=== PATIENT | male | born 1965 | race Caucasian/White ===

== ENCOUNTER 2018-06-11 21:03 | Inpatient (IN) | payer OTHER ==
[~2018-06-11] VITALS: Ht 172.7 cm; Wt 120.7 kg
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
[2018-06-11 22:43] LABS: BASO # 0.1 x10^3/uL (0.0-0.2); BASO % 1 % (0-3); EOS # 0.1 x10^3/uL (0.0-0.7); EOS % 1 % (0-3); HEMATOCRIT 38.3 % (39.0-53.0); HEMOGLOBIN 12.7 g/dL (13.0-17.5); LYMPH # 0.9 x10^3/uL (1.0-4.8); LYMPH % 11 % (24-48); MEAN CORPUSCULAR HEMOGLOBIN 29 pg (25-35); MEAN CORPUSCULAR HGB CONC 33 g/dL (31-37); MEAN CORPUSCULAR VOLUME 86 fL (79-100); MONO # 0.5 x10^3/uL (0.0-1.1); MONO % 6 % (0-9); NEUT # 6.5 x10^3uL (1.8-7.7); NEUT % 81 % (31-73); PLATELET COUNT 208 x10^3/uL (140-400); RED BLOOD COUNT 4.43 x10^6/uL (4.30-5.70); RED CELL DISTRIBUTION WIDTH 16.2 % (11.5-14.5)
[2018-06-11] MEDS ORDERED: IV NORMAL SALINE 1000ML BAG 1,000 ML IV ONE (22:45)
[2018-06-11] MEDS ORDERED: ONDANSETRON PF 4 MG/2 ML VIAL. IV ONE (22:45)
[2018-06-11] MEDS ORDERED: fentaNYL PF VIAL 100 MCG/2 ML VIAL IV ONE (22:45)
[2018-06-11 22:52] LABS: PROTHROMBIN TIME PATIENT 13.9 SEC (11.7-14.0)
[2018-06-11 22:57] LABS: CALCIUM 9.4 mg/dL (8.5-10.1); GFR 78.5; POTASSIUM 3.9 mmol/L (3.5-5.1)
[2018-06-11 23:08] LABS: ALBUMIN/GLOBULIN RATIO 1.2 (1.0-1.7); TOTAL BILIRUBIN 0.5 mg/dL (0.2-1.0); TOTAL PROTEIN 7.4 g/dL (6.4-8.2)
[2018-06-11] MEDS ORDERED: CONTRAST GIVEN. MC PRN (23:15)
[2018-06-11] MEDS ORDERED: IOHEXOL 300 MG/ML 100ML VIAL. IV ONE (23:15)
--- NOTE | 2018-06-11 23:33 | RAD ---
CT Head W/O Contrast: History: SYNCOPE Comparison: none Axial images were obtained without contrast. There is opacification of the left maxillary sinus. The quiñones and white matter appears normal and symmetrical for the patients age. There is no mass effect, extraaxial fluid collections or hydrocephalus. There is no gross bleed. There is no focal loss of quiñones-white matter distinction to suggest acute ischemia, i.e. stroke. Impression: Opacification of the left maxillary sinus. No acute intracranial findings. PQRS Compliance Statement: One or more of the following individualized dose reduction techniques were utilized for this examination: 1. Automated exposure control 2. Adjustment of the mA and/or kV according to patient size 3. Use of iterative reconstruction technique Electronically signed by: Chris Dudley III, MD (06/11/2018 11:30 PM) [facility]
[2018-06-12 01:10] LABS: BILIRUBIN,URINE NEGATIVE (NEG); CLARITY,URINE CLEAR; COLOR,URINE YELLOW; NITRITE,URINE NEGATIVE (NEG); PROTEIN,URINE NEGATIVE (NEG-TRACE); UROBILINOGEN,URINE 0.2 mg/dL (0.2 mg/dL)
[2018-06-12 01:15] LABS: BARBITURATES NEG (NEG); BENZODIAZEPINES NEG (NEG); CANNABINOIDS NEG (NEG); COCAINE NEG (NEG); METHADONE NEG (NEG); OPIATES NEG (NEG); PHENCYCLIDINE NEG (NEG)
[2018-06-12 01:16] LABS: AMPHETAMINE/METHAMPHETAMINE NEG (NEG)
[2018-06-12 01:22] LABS: BACTERIA,URINE 0 /HPF (0-FEW); RBC,URINE TNTC /HPF (0-2); WBC,URINE OCC /HPF (0-4)
--- NOTE | 2018-06-12 01:57 | RAD ---
INDICATION: abd pain; Omni 300, 75ml COMPARISON: None. TECHNIQUE: Axial CT images obtained through the abdomen and pelvis with contrast. This examination was time stamped as sent to the system at approximately 1:13 AM on 06/12/2018 and was available for review within the next few minutes after that point. The emergency department was called with preliminary report at 1:38 AM. One or more of the following individualized dose reduction techniques were utilized for this examination: 1. Automated exposure control; 2. Adjustment of the mA and/or kV according to patient size; 3. Use of iterative reconstruction technique. FINDINGS: Coronary artery calcific atherosclerosis. Abdominal aorta is not aneurysmal. There is calcific atherosclerosis. There are some enlarged lymph nodes in the groin bilaterally. Measure up to 11 mm short axis. Intraperitoneal free air is identified. Small amount of free fluid. No intrahepatic bile duct dilation. No peripancreatic fluid collection. Spleen is unremarkable. Low-density left adrenal nodule, 18 mm. Suspected exophytic lesion left kidney measuring 25 mm. No left-sided hydronephrosis. Bilateral nonobstructive renal stones. Urinary bladder is partially distended. No right-sided hydronephrosis. Wall thickening of the sigmoid colon. There is some free fluid adjacent as well as pocket of air and debris. Free air seen adjacent to this site. Appendix measures up to 9-10 mm. Degenerative changes the spine. Multilevel central canal and neural foraminal stenosis. Sclerotic foci in the osseous structures. Most commonly from bone island unless the patient has known history of neoplasm. IMPRESSION: 1. Wall thickening of the sigmoid colon with adjacent edema as well as air and debris. There is also free air seen elsewhere in the abdomen. This is most concerning for a perforated diverticulitis. 2. The appendix is dilated up to about a centimeter but the edema is more centered around the sigmoid colon rather than the appendix. This could be the patient's baseline appearance and some patients can have a dilated appendix at baseline however superimposed appendiceal inflammation would be difficult to exclude given the dilation. Electronically signed by: Brendan Michel MD (06/12/2018 1:54 AM) [facility]
[2018-06-12] MEDS ORDERED: ONDANSETRON PF 4 MG/2 ML VIAL. IV PRN (02:00)
[2018-06-12] MEDS: HYDROmorphone 2 MG/ML VIAL IV PRN ×5 (02:26→21:43)
[2018-06-12] MEDS: PIPERACILLIN/TAZOBACTAM 4.5 GM in IV NORMAL SALINE 100ML 100 ML IV SCH ×4 (02:30→21:43)
[2018-06-12] MEDS ORDERED: PIP/TAZO PER PHARMACY MC PRN (02:30)
[2018-06-12 03:25] VITALS: BP 121/78
[2018-06-12] MEDS ORDERED: bariatric vitamins (03:26)
[2018-06-12] MEDS ORDERED: CALC-112 PO (03:26)
[2018-06-12] MEDS ORDERED: PANT20TA2 PO (03:26)
[2018-06-12] MEDS ORDERED: losartan (03:26)
[2018-06-12] MEDS ORDERED: CARV25TA PO (03:26)
[2018-06-12] MEDS ORDERED: LACT100C2 PO (03:26)
[2018-06-12] MEDS ORDERED: TAMS0.4C97 PO (03:26)
[2018-06-12] MEDS ORDERED: FENO145T30 PO (03:26)
[2018-06-12] MEDS: IV NORMAL SALINE 1000ML BAG 1,000 ML IV SCH ×2 (04:27→17:13)
--- NOTE | 2018-06-12 06:38 | EKG ---
[facility] [address] [place] [address] Test Date: 2018-06-11 Test Time: 22:51:46 Pat Name: TUTU BERGMAN Department: Room: [facility] Gender: M Office Mover: : 1965 Requested By: CLINTON POZO Order Number: [id number] Reading MD: Abhinav Whitmore Measurements Intervals Williamson Rate: 78 P: 19 NV: 230 QRS: -9 QRSD: 104 T: 17 QT: 398 QTc: 457 Interpretive Statements SINUS RHYTHM PROLONGED NV INTERVAL LEFTWARD AXIS R-S TRANSITION ZONE IN V LEADS DISPLACED TO THE LEFT QRS(T) CONTOUR ABNORMALITY CONSIDER INFERIOR INFARCT Electronically Signed On 06-18-2018 11:25:22 CDT by Abhinav Whitmore
[2018-06-12 07:00] VITALS: BP 114/73
--- NOTE | 2018-06-12 07:46 | RAD ---
Examination: PORTABLE CHEST 1V History: AMS. SYNCOPE Comparison/Correlation: None Findings: Portable upright frontal view chest was obtained. Heart size is within upper limits of normal. Borderline pulmonary vasculature. No pneumothorax. No definite pleural effusion. No focal infiltrate. No acute bony process. Impression: Borderline pulmonary vasculature. No definite acute process. Electronically signed by: Pete Reese MD (06/12/2018 7:44 AM) [facility]
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
[2018-06-12] MEDS ORDERED: SALIVA STIMULANT AGENT 44ML SPRAY BOTTLE. PO PRN (09:45)
[2018-06-12] MEDS ORDERED: fentaNYL PF VIAL 100 MCG/2 ML VIAL IV PRN (09:45)
[2018-06-12] MEDS ORDERED: KETOROLAC 15 MG/ML VIAL. IV ONE (09:45)
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
[2018-06-12] MEDS ORDERED: DEXTROSE 50% 25 GM / 50ML DISP.SYRIN. IV PRN (10:00)
[2018-06-12] MEDS: TAMSULOSIN 0.4 MG CAP.ER.24H. PO SCH (10:00)
--- NOTE | 2018-06-12 10:41 | PDOC ---
Infectious Disease Note Vital Sign Vital Signs Vital Signs Date Time Temp Pulse Resp B/P (MAP) Pulse Ox O2 Delivery O2 Flow Rate FiO2 06/12/18 08:31 95 06/12/18 07:04 16 Room Air 06/12/18 07:00 99.5 82 114/73 (87) 99.5 Labs Lab Laboratory Tests Test 06/11/18 22:15 06/12/18 00:50 White Blood Count 8.0 x10^3/uL (4.0-11.0) Red Blood Count 4.43 x10^6/uL (4.30-5.70) Hemoglobin 12.7 g/dL (13.0-17.5) Hematocrit 38.3 % (39.0-53.0) Mean Corpuscular Volume 86 fL (79-100) Mean Corpuscular Hemoglobin 29 pg (25-35) Mean Corpuscular Hemoglobin Concent 33 g/dL (31-37) Red Cell Distribution Width 16.2 % (11.5-14.5) Platelet Count 208 x10^3/uL (140-400) Neutrophils (%) (Auto) 81 % (31-73) Lymphocytes (%) (Auto) 11 % (24-48) Monocytes (%) (Auto) 6 % (0-9) Eosinophils (%) (Auto) 1 % (0-3) Basophils (%) (Auto) 1 % (0-3) Neutrophils # (Auto) 6.5 x10^3uL (1.8-7.7) Lymphocytes # (Auto) 0.9 x10^3/uL (1.0-4.8) Monocytes # (Auto) 0.5 x10^3/uL (0.0-1.1) Eosinophils # (Auto) 0.1 x10^3/uL (0.0-0.7) Basophils # (Auto) 0.1 x10^3/uL (0.0-0.2) Prothrombin Time 13.9 SEC (11.7-14.0) Prothromb Time International Ratio 1.1 (0.8-1.1) Sodium Level 142 mmol/L (136-145) Potassium Level 3.9 mmol/L (3.5-5.1) Chloride Level 106 mmol/L (98-107) Carbon Dioxide Level 25 mmol/L (21-32) Anion Gap 11 (6-14) Blood Urea Nitrogen 22 mg/dL (8-26) Creatinine 1.0 mg/dL (0.7-1.3) Estimated GFR (Cockcroft-Gault) 78.5 BUN/Creatinine Ratio 22 (6-20) Glucose Level 172 mg/dL (70-99) Calcium Level 9.4 mg/dL (8.5-10.1) Total Bilirubin 0.5 mg/dL (0.2-1.0) Aspartate Amino Transf (AST/SGOT) 17 U/L (15-37) Alanine Aminotransferase (ALT/SGPT) 24 U/L (16-63) Alkaline Phosphatase 41 U/L (46-116) Troponin I Quantitative < 0.017 ng/mL (0.000-0.055) Total Protein 7.4 g/dL (6.4-8.2) Albumin 4.0 g/dL (3.4-5.0) Albumin/Globulin Ratio 1.2 (1.0-1.7) Ethyl Alcohol Level < 10 mg/dL (0-10) Urine Collection Type Void Urine Color Yellow Urine Clarity Clear Urine pH 6.0 Urine Specific [place] >=1.030 Urine Protein Negative mg/dL (NEG-TRACE) Urine Glucose (UA) >=1000 mg/dL (NEG) Urine Ketones (Stick) Trace mg/dL (NEG) Urine Blood Large (NEG) Urine Nitrite Negative (NEG) Urine Bilirubin Negative (NEG) Urine Urobilinogen Dipstick 0.2 mg/dL (0.2 mg/dL) Urine Leukocyte Esterase Negative (NEG) Urine RBC Tntc /HPF (0-2) Urine WBC Occ /HPF (0-4) Urine Squamous Epithelial Cells None /LPF Urine Bacteria 0 /HPF (0-FEW) Urine Opiates Screen Neg (NEG) Urine Methadone Screen Neg (NEG) Urine Barbiturates Neg (NEG) Urine Phencyclidine Screen Neg (NEG) Urine Amphetamine/Methamphetamine Neg (NEG) Urine Benzodiazepines Screen Neg (NEG) Urine Cocaine Screen Neg (NEG) Urine Cannabinoids Screen Neg (NEG) Urine Ethyl Alcohol Neg (NEG) Micro IMPRESSION: 1. Wall thickening of the sigmoid colon with adjacent edema as well as air and debris. There is also free air seen elsewhere in the abdomen. This is most concerning for a perforated diverticulitis. 2. The appendix is dilated up to about a centimeter but the edema is more centered around the sigmoid colon rather than the appendix. This could be the patient's baseline appearance and some patients can have a dilated appendix at baseline however superimposed appendiceal inflammation would be difficult to exclude given the dilation. Objective Assessment Perforated Diverticulitis H/o Staph infection recent doxycycline in [place] around his Gastric bypass ? left max sinusitis on CT Sulfa allergy DM Plan Plan of Care Cont Zosyn Add Vanc and Micafungin F/u labs and cults Await surgical decisions D/w family Thank you # [id number] MARIETTA GONZALEZ MD Jun 12, 2018 10:41
[2018-06-12 11:00] VITALS: BP 107/65
[2018-06-12] MEDS: INSULIN LISPRO 300 UNITS/3 ML INSULN.PEN. SQ SCH ×2 (11:13→17:00)
[2018-06-12] MEDS: PANTOPRAZOLE IV PUSH 40 MG VIAL. IVP SCH (11:16)
[2018-06-12] MEDS ORDERED: VANCOMYCIN 2 GM in IV NORMAL SALINE 500ML BAG 500 ML IV ONE (11:30)
[2018-06-12] MEDS: MICAFUNGIN 100 MG in IV DEXTROSE 5% 100ML 100 ML IV SCH (12:52)
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
[2018-06-12 15:00] VITALS: BP 122/75
[2018-06-12] MEDS: VANCOMYCIN PER PHARMACY MC PRN (15:16)
--- NOTE | 2018-06-12 15:48 | CARD ---
MR#: [id number] Date of Study: 06/12/2018 Ordering Physician: GLENROY INFANTE, Referring Physician: RONEL OLIVAREZ Tech: Vero Castillo [facility] APPROVED REPORT EXAM: Two-dimensional and M-mode echocardiogram with Doppler and color Doppler. Other Information Quality : Fair INDICATION Syncope 2D DIMENSIONS RVDd3.5 (2.9-3.5cm)Left Atrium(2D)4.2 (1.6-4.0cm) IVSd1.2 (0.7-1.1cm)Aortic Root(2D)3.5 (2.0-3.7cm) LVDd5.7 (3.9-5.9cm)LVOT Diameter2.6 (1.8-2.4cm) PWd1.1 (0.7-1.1cm)LVDs3.3 (2.5-4.0cm) FS (%) 30.0 %SV115.5 ml LVEF(%)60.0 (>50%) Aortic Valve AoV Peak Jordan.150.9cm/sAoV VTI27.6cm AO Peak GR.9.1mmHgLVOT Peak Jordan.133.5cm/s LVOT VTI 26.52cmAO Mean GR.5mmHg YAN (VMAX)4.84ji7BXQ (VTI)4.95cm2 Mitral Valve MV E Vfjktwmk266.0cm/sMV DECEL DIYE683mh MV A Mornelko39.8cm/sMV RVV75kt E/A Ratio1.3MVA (PHT)3.45cm2 TDI E/Lateral E'11.7E/Medial E'15.1 Tricuspid Valve TR P. Aiipuhjc310zv/sRAP OVCDDYPS4bgBz TR Peak Gr.51wlQvEEYL83ieMu Pulmonary Vein S1 Uxijcawp77.5cm/sD2 Kkwyokeu36.1cm/s LEFT VENTRICLE The left ventricle is normal size. There is mild concentric left ventricular hypertrophy. The left ve ntricular systolic function is normal and the ejection fraction is within normal range. The Ejection Fraction is 55-60%. There is normal LV segmental wall motion. Transmitral Doppler flow pattern is Gra de II-pseudonormal filling dynamics. RIGHT VENTRICLE The right ventricle is normal size. The right ventricular systolic function is normal. ATRIA The left atrium is mildly dilated. The right atrium size is normal. The interatrial septum is intact with no evidence for an atrial septal defect or patent foramen ovale as noted on 2-D or Doppler imagi ng. AORTIC VALVE The aortic valve is normal in structure and function. Doppler and Color Flow revealed no significant aortic regurgitation. There is no significant aortic valvular stenosis. MITRAL VALVE The mitral valve is normal in structure and function. There is no evidence of mitral valve prolapse. There is no mitral valve stenosis. Doppler and Color-flow revealed trace mitral regurgitation. TRICUSPID VALVE The tricuspid valve is normal in structure and function. Doppler and Color Flow revealed trace to mil d tricuspid regurgitation. The PA pressure was estimated at 22 mmHg. There is no tricuspid valve sten osis. PULMONIC VALVE The pulmonic valve is not well visualized. Doppler and Color Flow revealed trace pulmonic valvular re gurgitation. There is no pulmonic valvular stenosis. GREAT VESSELS The aortic root is normal in size. The ascending aorta is moderately dilated at 4.0 cm. The IVC is no rmal in size and collapses >50% with inspiration. PERICARDIAL EFFUSION There is no evidence of significant pericardial effusion. Critical Notification Critical Value: No <Conclusion> The left ventricular systolic function is normal and the ejection fraction is within normal range. Th e Ejection Fraction is 55-60%. There is normal LV segmental wall motion. The ascending aorta is moderately dilated at 4.0 cm. Signed by : Tho Dunne, Electronically Approved : 06/12/2018 15:48:04
[2018-06-12 19:56] VITALS: BP 137/85
[2018-06-12] MEDS: METOPROLOL TARTRATE 5 MG/5 ML VIAL. IVP SCH (21:44)
--- NOTE | 2018-06-12 23:18 | CONS ---
DATE OF CONSULTATION: 06/12/2018 ROOM: 660. REQUESTING PHYSICIAN: Dr. Luz. REASON FOR CONSULTATION: Perforated diverticulitis. 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 Yesterday, he awakened and throughout the day he did not quite feel quite right, but was unable to quantify that. While driving approximately 8:30 last p.m., he had acute onset of abdominal pain and called his to come and get him. He went to go park his truck, but then passed out. He denies any fevers or chills or sweats. He had nausea and vomiting. He had some loose stools. When he was brought to [facility], he was running a low grade temp of 99.5. White blood cell count was normal at 8 with glucose of 172. CT scan of the head showed opacification of the left maxillary sinus. Chest x-ray showed some borderline pulmonary vasculature, but no definitive acute process. Abdomen CT scan showed a wall thickening in the sigmoid colon with adjacent edema as well air and debris, also free air seen elsewhere in the abdomen concerning for perforated diverticulitis. The appendix was dilated up to about a cm as well. He has been admitted to the hospital and has been placed on Zosyn. Denies any rashes. No dysuria, was placed on Flomax. Does have a history of use of Flomax. PAST MEDICAL HISTORY: Positive for diabetes, hypertension, low testosterone, Denise's palsy, sleep apnea, coronary artery disease, BPH, history of left knee infection back in the 1980s and also history of a scrotal skin infection. PAST SURGICAL HISTORY: Positive for tonsillectomy, adenoidectomy and uvulectomy for sleep apnea. History of cholecystectomy. He has got cardiac stents. He has had an I and D of his scrotal area and also has had right knee surgery x 12, left knee surgery x 2, left foot and bilateral wrist surgeries. REVIEW OF SYSTEMS: Otherwise negative except as mentioned above. ALLERGIES: LISTED SULFA, WHICH CAUSES SOME THROAT SWELLING AND HIVES. TYLENOL, HYDROCODONE ARE ALSO LISTED. SOCIAL HISTORY: He is a former smoker, has cats, dogs, and rabbits at home. 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 He is . No alcohol. FAMILY HISTORY: Positive for coronary artery disease, which is dad from. Mom had breast cancer as well as hypertension and diabetes. CURRENT MEDICATIONS: Include Zosyn, fentanyl, Dilaudid, insulin. He did receive Toradol x 1. He is on Lopressor, pantoprazole. Other meds are available, have been reviewed in the chart. PHYSICAL EXAMINATION: VITAL SIGNS: T-max have been 99.5 that is recent. Pulse 82, respirations 18, blood pressure 114/73, satting 95% on room air. CONSTITUTIONAL: He is lying comfortably in bed. He has no acute distress. HEENT: Pupils are equal and reactive. He has normal conjunctivae. Oral cavity, pharynx clear. NECK: Supple, no JVD. LUNGS: Decreased in the bases. HEART: S1, S2. ABDOMEN: Obese, soft, is diffusely tender. EXTREMITIES: Without clubbing or cyanosis. No gross edema. SKIN: Warm to touch without signs of rash. NEUROLOGIC: He is nonfocal and appropriate. PSYCHIATRIC: Affect is pleasant. LABORATORY DATA: White count was 8, hemoglobin 12.7, platelets of 208, neutrophils 81, lymphs are 11, glucose of 122. He has had normal troponin. AST 17, ALT 24, alkaline phosphatase 41, creatinine of 1. Urine had too numerous to count rbc's, occasional wbc's, no bacteria, nitrite and leukocyte esterase were negative. Toxicology screen was negative. Alcohol screen was negative. Radiology reviewed in history of present illness. IMPRESSION: 1. Perforated diverticulitis. 2. History of staph infection, recent doxycycline in March around his gastric bypass that was performed at [facility]. 3. Questionable left sinusitis, CT. 4. SULFA ALLERGY. 5. Diabetes. RECOMMENDATIONS: For now, we will continue the Zosyn. We will add vancomycin as well as micafungin. Add vancomycin given his history of Staph. He is uncertain if it was MRSA or not. We will follow up labs and cultures, await surgical decision. This was discussed with his family. Thank you for allowing me to participate in this patient's care. Should you have any questions, please do not hesitate to contact me. MARIETTA GONZALEZ MD DR: LEE/farhan JOB#: [id number] / [id number]
[2018-06-12 23:22] VITALS: BP 106/61
[2018-06-13] MEDS: IV NORMAL SALINE 1000ML BAG 1,000 ML IV SCH (01:01)
[2018-06-13] MEDS: PIPERACILLIN/TAZOBACTAM 4.5 GM in IV NORMAL SALINE 100ML 100 ML IV SCH ×5 (01:02→23:52)
[2018-06-13] MEDS: VANCOMYCIN 1.75 GM in IV NORMAL SALINE 500ML BAG 500 ML IV SCH ×2 (03:00→16:43)
[2018-06-13 03:10] VITALS: BP 133/77
[2018-06-13 04:20] LABS: BASO % 0 % (0-3); EOS # 0.1 x10^3/uL (0.0-0.7); EOS % 1 % (0-3); HEMATOCRIT 33.4 % (39.0-53.0); HEMOGLOBIN 11.3 g/dL (13.0-17.5); LYMPH % 11 % (24-48); MEAN CORPUSCULAR HEMOGLOBIN 29 pg (25-35); MEAN CORPUSCULAR HGB CONC 34 g/dL (31-37); MEAN CORPUSCULAR VOLUME 87 fL (79-100); MONO # 0.7 x10^3/uL (0.0-1.1); MONO % 8 % (0-9); NEUT # 7.1 x10^3uL (1.8-7.7); NEUT % 79 % (31-73); PLATELET COUNT 178 x10^3/uL (140-400); RED BLOOD COUNT 3.84 x10^6/uL (4.30-5.70); RED CELL DISTRIBUTION WIDTH 16.5 % (11.5-14.5)
[2018-06-13 04:58] LABS: ALBUMIN 3.1 g/dL (3.4-5.0); ALBUMIN/GLOBULIN RATIO 0.9 (1.0-1.7); CALCIUM 8.7 mg/dL (8.5-10.1); CREATININE 1.2 mg/dL (0.7-1.3); GFR 63.6; POTASSIUM 4.1 mmol/L (3.5-5.1); TOTAL BILIRUBIN 0.9 mg/dL (0.2-1.0); TOTAL PROTEIN 6.6 g/dL (6.4-8.2)
[2018-06-13 07:00] VITALS: BP 136/78
[2018-06-13] MEDS: INSULIN LISPRO 300 UNITS/3 ML INSULN.PEN. SQ SCH ×3 (08:00→16:46)
--- NOTE | 2018-06-13 08:12 | PDOC ---
Infectious Disease Note Subjective Subjective Still abd pain but is trying to avoid pain meds to stay clear Feels he needs to have a BM but can't. Occ Flatus No Fever but feels warm. No SOA/rash/dysuria ROS ROS o/w neg Vital Sign Vital Signs Vital Signs Date Time Temp Pulse Resp B/P (MAP) Pulse Ox O2 Delivery O2 Flow Rate FiO2 06/13/18 07:00 98.6 78 16 136/78 (97) 95 Room Air 98.6 Physical Exam PHYSICAL EXAM CONSTITUTIONAL: He is lying comfortably in bed. He has no acute distress. HEENT: Pupils are equal and reactive. He has normal conjunctivae. Oral cavity, pharynx clear. NECK: Supple, no JVD. LUNGS: Decreased in the bases. HEART: S1, S2. ABDOMEN: Obese, soft, is diffusely tender. EXTREMITIES: Without clubbing or cyanosis. No gross edema. SKIN: Warm to touch without signs of rash. NEUROLOGIC: He is nonfocal and appropriate. PSYCHIATRIC: Affect is pleasant. Labs Lab Laboratory Tests Test 06/12/18 11:12 06/12/18 16:42 06/12/18 20:45 06/13/18 03:50 Glucose (Fingerstick) 167 mg/dL (70-99) 164 mg/dL (70-99) 151 mg/dL (70-99) White Blood Count 9.0 x10^3/uL (4.0-11.0) Red Blood Count 3.84 x10^6/uL (4.30-5.70) Hemoglobin 11.3 g/dL (13.0-17.5) Hematocrit 33.4 % (39.0-53.0) Mean Corpuscular Volume 87 fL (79-100) Mean Corpuscular Hemoglobin 29 pg (25-35) Mean Corpuscular Hemoglobin Concent 34 g/dL (31-37) Red Cell Distribution Width 16.5 % (11.5-14.5) Platelet Count 178 x10^3/uL (140-400) Neutrophils (%) (Auto) 79 % (31-73) Lymphocytes (%) (Auto) 11 % (24-48) Monocytes (%) (Auto) 8 % (0-9) Eosinophils (%) (Auto) 1 % (0-3) Basophils (%) (Auto) 0 % (0-3) Neutrophils # (Auto) 7.1 x10^3uL (1.8-7.7) Lymphocytes # (Auto) 1.0 x10^3/uL (1.0-4.8) Monocytes # (Auto) 0.7 x10^3/uL (0.0-1.1) Eosinophils # (Auto) 0.1 x10^3/uL (0.0-0.7) Basophils # (Auto) 0.0 x10^3/uL (0.0-0.2) Sodium Level 143 mmol/L (136-145) Potassium Level 4.1 mmol/L (3.5-5.1) Chloride Level 109 mmol/L (98-107) Carbon Dioxide Level 26 mmol/L (21-32) Anion Gap 8 (6-14) Blood Urea Nitrogen 18 mg/dL (8-26) Creatinine 1.2 mg/dL (0.7-1.3) Estimated GFR (Cockcroft-Gault) 63.6 BUN/Creatinine Ratio 15 (6-20) Glucose Level 158 mg/dL (70-99) Calcium Level 8.7 mg/dL (8.5-10.1) Total Bilirubin 0.9 mg/dL (0.2-1.0) Aspartate Amino Transf (AST/SGOT) 13 U/L (15-37) Alanine Aminotransferase (ALT/SGPT) 18 U/L (16-63) Alkaline Phosphatase 37 U/L (46-116) Total Protein 6.6 g/dL (6.4-8.2) Albumin 3.1 g/dL (3.4-5.0) Albumin/Globulin Ratio 0.9 (1.0-1.7) Test 06/13/18 07:16 Glucose (Fingerstick) 139 mg/dL (70-99) Micro IMPRESSION: 1. Wall thickening of the sigmoid colon with adjacent edema as well as air and debris. There is also free air seen elsewhere in the abdomen. This is most concerning for a perforated diverticulitis. 2. The appendix is dilated up to about a centimeter but the edema is more centered around the sigmoid colon rather than the appendix. This could be the patient's baseline appearance and some patients can have a dilated appendix at baseline however superimposed appendiceal inflammation would be difficult to exclude given the dilation. Objective Assessment Perforated Diverticulitis H/o Staph infection recent doxycycline in Mar around his Gastric bypass ? left max sinusitis on CT Sulfa allergy DM Plan Plan of Care Cont Zosyn/ Vanc and Micafungin F/u labs and cults Await further surgical decisions D/w MARIETTA GONZALEZ MD Jun 13, 2018 08:12
--- NOTE | 2018-06-13 08:17 | PDOC ---
JULIET NAVARRO NEEDLE PUNCH MACHINE OPERATOR HELPER 06/13/18 0817: SURGICAL PROGRESS NOTE Subjective ongoing pain, although rating at a 6--was a 9 yesterday concerned about dark urine no emesis pain located right side Vital Signs Vital Signs Date Time Temp Pulse Resp B/P (MAP) Pulse Ox O2 Delivery O2 Flow Rate FiO2 06/13/18 07:00 98.6 78 16 136/78 (97) 95 Room Air 98.6 I&O Intake and Output 06/13/18 07:00 Intake Total 0 ml Output Total 400 ml Balance -400 ml Intake Oral 0 ml Output Urine Total 400 ml # Voids 1 General: Alert, Oriented X3, Cooperative, No acute distress Abdomen: Soft, Other (moderate ttp to RLQ, some guarding on exam ) Labs Laboratory Tests Test 06/11/18 22:15 06/12/18 00:50 06/12/18 11:12 06/12/18 16:42 White Blood Count 8.0 x10^3/uL (4.0-11.0) Red Blood Count 4.43 x10^6/uL (4.30-5.70) Hemoglobin 12.7 g/dL (13.0-17.5) Hematocrit 38.3 % (39.0-53.0) Mean Corpuscular Volume 86 fL (79-100) Mean Corpuscular Hemoglobin 29 pg (25-35) Mean Corpuscular Hemoglobin Concent 33 g/dL (31-37) Red Cell Distribution Width 16.2 % (11.5-14.5) Platelet Count 208 x10^3/uL (140-400) Neutrophils (%) (Auto) 81 % (31-73) Lymphocytes (%) (Auto) 11 % (24-48) Monocytes (%) (Auto) 6 % (0-9) Eosinophils (%) (Auto) 1 % (0-3) Basophils (%) (Auto) 1 % (0-3) Neutrophils # (Auto) 6.5 x10^3uL (1.8-7.7) Lymphocytes # (Auto) 0.9 x10^3/uL (1.0-4.8) Monocytes # (Auto) 0.5 x10^3/uL (0.0-1.1) Eosinophils # (Auto) 0.1 x10^3/uL (0.0-0.7) Basophils # (Auto) 0.1 x10^3/uL (0.0-0.2) Prothrombin Time 13.9 SEC (11.7-14.0) Prothromb Time International Ratio 1.1 (0.8-1.1) Sodium Level 142 mmol/L (136-145) Potassium Level 3.9 mmol/L (3.5-5.1) Chloride Level 106 mmol/L (98-107) Carbon Dioxide Level 25 mmol/L (21-32) Anion Gap 11 (6-14) Blood Urea Nitrogen 22 mg/dL (8-26) Creatinine 1.0 mg/dL (0.7-1.3) Estimated GFR (Cockcroft-Gault) 78.5 BUN/Creatinine Ratio 22 (6-20) Glucose Level 172 mg/dL (70-99) Calcium Level 9.4 mg/dL (8.5-10.1) Total Bilirubin 0.5 mg/dL (0.2-1.0) Aspartate Amino Transf (AST/SGOT) 17 U/L (15-37) Alanine Aminotransferase (ALT/SGPT) 24 U/L (16-63) Alkaline Phosphatase 41 U/L (46-116) Troponin I Quantitative < 0.017 ng/mL (0.000-0.055) Total Protein 7.4 g/dL (6.4-8.2) Albumin 4.0 g/dL (3.4-5.0) Albumin/Globulin Ratio 1.2 (1.0-1.7) Ethyl Alcohol Level < 10 mg/dL (0-10) Urine Collection Type Void Urine Color Yellow Urine Clarity Clear Urine pH 6.0 Urine Specific [place] >=1.030 Urine Protein Negative mg/dL (NEG-TRACE) Urine Glucose (UA) >=1000 mg/dL (NEG) Urine Ketones (Stick) Trace mg/dL (NEG) Urine Blood Large (NEG) Urine Nitrite Negative (NEG) Urine Bilirubin Negative (NEG) Urine Urobilinogen Dipstick 0.2 mg/dL (0.2 mg/dL) Urine Leukocyte Esterase Negative (NEG) Urine RBC Tntc /HPF (0-2) Urine WBC Occ /HPF (0-4) Urine Squamous Epithelial Cells None /LPF Urine Bacteria 0 /HPF (0-FEW) Urine Opiates Screen Neg (NEG) Urine Methadone Screen Neg (NEG) Urine Barbiturates Neg (NEG) Urine Phencyclidine Screen Neg (NEG) Urine Amphetamine/Methamphetamine Neg (NEG) Urine Benzodiazepines Screen Neg (NEG) Urine Cocaine Screen Neg (NEG) Urine Cannabinoids Screen Neg (NEG) Urine Ethyl Alcohol Neg (NEG) Glucose (Fingerstick) 167 mg/dL (70-99) 164 mg/dL (70-99) Test 06/12/18 20:45 06/13/18 03:50 06/13/18 07:16 Glucose (Fingerstick) 151 mg/dL (70-99) 139 mg/dL (70-99) White Blood Count 9.0 x10^3/uL (4.0-11.0) Red Blood Count 3.84 x10^6/uL (4.30-5.70) Hemoglobin 11.3 g/dL (13.0-17.5) Hematocrit 33.4 % (39.0-53.0) Mean Corpuscular Volume 87 fL (79-100) Mean Corpuscular Hemoglobin 29 pg (25-35) Mean Corpuscular Hemoglobin Concent 34 g/dL (31-37) Red Cell Distribution Width 16.5 % (11.5-14.5) Platelet Count 178 x10^3/uL (140-400) Neutrophils (%) (Auto) 79 % (31-73) Lymphocytes (%) (Auto) 11 % (24-48) Monocytes (%) (Auto) 8 % (0-9) Eosinophils (%) (Auto) 1 % (0-3) Basophils (%) (Auto) 0 % (0-3) Neutrophils # (Auto) 7.1 x10^3uL (1.8-7.7) Lymphocytes # (Auto) 1.0 x10^3/uL (1.0-4.8) Monocytes # (Auto) 0.7 x10^3/uL (0.0-1.1) Eosinophils # (Auto) 0.1 x10^3/uL (0.0-0.7) Basophils # (Auto) 0.0 x10^3/uL (0.0-0.2) Sodium Level 143 mmol/L (136-145) Potassium Level 4.1 mmol/L (3.5-5.1) Chloride Level 109 mmol/L (98-107) Carbon Dioxide Level 26 mmol/L (21-32) Anion Gap 8 (6-14) Blood Urea Nitrogen 18 mg/dL (8-26) Creatinine 1.2 mg/dL (0.7-1.3) Estimated GFR (Cockcroft-Gault) 63.6 BUN/Creatinine Ratio 15 (6-20) Glucose Level 158 mg/dL (70-99) Calcium Level 8.7 mg/dL (8.5-10.1) Total Bilirubin 0.9 mg/dL (0.2-1.0) Aspartate Amino Transf (AST/SGOT) 13 U/L (15-37) Alanine Aminotransferase (ALT/SGPT) 18 U/L (16-63) Alkaline Phosphatase 37 U/L (46-116) Total Protein 6.6 g/dL (6.4-8.2) Albumin 3.1 g/dL (3.4-5.0) Albumin/Globulin Ratio 0.9 (1.0-1.7) Laboratory Tests Test 06/12/18 11:12 06/12/18 16:42 06/12/18 20:45 06/13/18 03:50 Glucose (Fingerstick) 167 mg/dL (70-99) 164 mg/dL (70-99) 151 mg/dL (70-99) White Blood Count 9.0 x10^3/uL (4.0-11.0) Red Blood Count 3.84 x10^6/uL (4.30-5.70) Hemoglobin 11.3 g/dL (13.0-17.5) Hematocrit 33.4 % (39.0-53.0) Mean Corpuscular Volume 87 fL (79-100) Mean Corpuscular Hemoglobin 29 pg (25-35) Mean Corpuscular Hemoglobin Concent 34 g/dL (31-37) Red Cell Distribution Width 16.5 % (11.5-14.5) Platelet Count 178 x10^3/uL (140-400) Neutrophils (%) (Auto) 79 % (31-73) Lymphocytes (%) (Auto) 11 % (24-48) Monocytes (%) (Auto) 8 % (0-9) Eosinophils (%) (Auto) 1 % (0-3) Basophils (%) (Auto) 0 % (0-3) Neutrophils # (Auto) 7.1 x10^3uL (1.8-7.7) Lymphocytes # (Auto) 1.0 x10^3/uL (1.0-4.8) Monocytes # (Auto) 0.7 x10^3/uL (0.0-1.1) Eosinophils # (Auto) 0.1 x10^3/uL (0.0-0.7) Basophils # (Auto) 0.0 x10^3/uL (0.0-0.2) Sodium Level 143 mmol/L (136-145) Potassium Level 4.1 mmol/L (3.5-5.1) Chloride Level 109 mmol/L (98-107) Carbon Dioxide Level 26 mmol/L (21-32) Anion Gap 8 (6-14) Blood Urea Nitrogen 18 mg/dL (8-26) Creatinine 1.2 mg/dL (0.7-1.3) Estimated GFR (Cockcroft-Gault) 63.6 BUN/Creatinine Ratio 15 (6-20) Glucose Level 158 mg/dL (70-99) Calcium Level 8.7 mg/dL (8.5-10.1) Total Bilirubin 0.9 mg/dL (0.2-1.0) Aspartate Amino Transf (AST/SGOT) 13 U/L (15-37) Alanine Aminotransferase (ALT/SGPT) 18 U/L (16-63) Alkaline Phosphatase 37 U/L (46-116) Total Protein 6.6 g/dL (6.4-8.2) Albumin 3.1 g/dL (3.4-5.0) Albumin/Globulin Ratio 0.9 (1.0-1.7) Test 06/13/18 07:16 Glucose (Fingerstick) 139 mg/dL (70-99) Problem List Problems Medical Problems: (1) Diverticulitis of colon with perforation Status: Acute Assessment/Plan wbc normal, vss, exam about the same as yesterday(does not appear worse) continue abx, bowel rest, hydration, pain management consider repeat CT in few days DANIELE GREY MD 06/13/18 4044: SURGICAL PROGRESS NOTE Assessment/Plan Reviewed, agree with above; will give trial of medical management with close monitoring, likely repeat CT scan in 3-4 days to reassess; surgery remains po ssible if unable to improve NICKEL,JULIET L NEEDLE PUNCH MACHINE OPERATOR HELPER Jun 13, 2018 08:17 DANIELE GREY MD Jun 13, 2018 13:37
[2018-06-13] MEDS: TAMSULOSIN 0.4 MG CAP.ER.24H. PO SCH (09:00)
[2018-06-13] MEDS: PANTOPRAZOLE IV PUSH 40 MG VIAL. IVP SCH (09:54)
[2018-06-13] MEDS: METOPROLOL TARTRATE 5 MG/5 ML VIAL. IVP SCH ×2 (09:55→21:33)
[2018-06-13] MEDS ORDERED: IV NORMAL SALINE 1000ML BAG 1,000 ML IV ONE (10:30)
[2018-06-13] MEDS ORDERED: SODIUM PHOSPHATES 19/7GM 133 ML ENEMA. PR ONE (11:00)
--- NOTE | 2018-06-13 11:37 | PDOC ---
GLENROY INFANTE MACHINE OPERATOR CANE CUTTER 06/13/18 1137: CARDIO Progress Notes Date and Time Date of Service 06/13/2018 Time of Evaluation 1130 Subjective Subjective: No Chest Pain, No shortness of breath, No Palpitations Vitals Vitals Vital Signs Date Time Temp Pulse Resp B/P (MAP) Pulse Ox O2 Delivery O2 Flow Rate FiO2 06/13/18 09:55 78 136/78 06/13/18 07:00 98.6 16 95 Room Air 98.6 Weight Weight [ ] Input and Output Intake and Output Intake and Output 06/13/18 07:00 Intake Total 0 ml Output Total 400 ml Balance -400 ml Intake Oral 0 ml Output Urine Total 400 ml # Voids 1 Laboratory Labs Laboratory Tests Test 06/12/18 16:42 06/12/18 20:45 06/13/18 03:50 06/13/18 07:16 Glucose (Fingerstick) 164 mg/dL (70-99) 151 mg/dL (70-99) 139 mg/dL (70-99) White Blood Count 9.0 x10^3/uL (4.0-11.0) Red Blood Count 3.84 x10^6/uL (4.30-5.70) Hemoglobin 11.3 g/dL (13.0-17.5) Hematocrit 33.4 % (39.0-53.0) Mean Corpuscular Volume 87 fL (79-100) Mean Corpuscular Hemoglobin 29 pg (25-35) Mean Corpuscular Hemoglobin Concent 34 g/dL (31-37) Red Cell Distribution Width 16.5 % (11.5-14.5) Platelet Count 178 x10^3/uL (140-400) Neutrophils (%) (Auto) 79 % (31-73) Lymphocytes (%) (Auto) 11 % (24-48) Monocytes (%) (Auto) 8 % (0-9) Eosinophils (%) (Auto) 1 % (0-3) Basophils (%) (Auto) 0 % (0-3) Neutrophils # (Auto) 7.1 x10^3uL (1.8-7.7) Lymphocytes # (Auto) 1.0 x10^3/uL (1.0-4.8) Monocytes # (Auto) 0.7 x10^3/uL (0.0-1.1) Eosinophils # (Auto) 0.1 x10^3/uL (0.0-0.7) Basophils # (Auto) 0.0 x10^3/uL (0.0-0.2) Sodium Level 143 mmol/L (136-145) Potassium Level 4.1 mmol/L (3.5-5.1) Chloride Level 109 mmol/L (98-107) Carbon Dioxide Level 26 mmol/L (21-32) Anion Gap 8 (6-14) Blood Urea Nitrogen 18 mg/dL (8-26) Creatinine 1.2 mg/dL (0.7-1.3) Estimated GFR (Cockcroft-Gault) 63.6 BUN/Creatinine Ratio 15 (6-20) Glucose Level 158 mg/dL (70-99) Calcium Level 8.7 mg/dL (8.5-10.1) Total Bilirubin 0.9 mg/dL (0.2-1.0) Aspartate Amino Transf (AST/SGOT) 13 U/L (15-37) Alanine Aminotransferase (ALT/SGPT) 18 U/L (16-63) Alkaline Phosphatase 37 U/L (46-116) Total Protein 6.6 g/dL (6.4-8.2) Albumin 3.1 g/dL (3.4-5.0) Albumin/Globulin Ratio 0.9 (1.0-1.7) Physical Exam HEENT: Neck Supple W Full Motion Chest: Symmetric LUNGS: Clear to Auscultation Heart: S1S2, RRR, no gallops, no murmurs, other Abdomen: Other Extremities: No Calf Tenderness Neurology: alert, oriented, follow commands Assessment Assessment 1. Abd pain/Perforated bowel: diverticulitis 2. Syncope: suspect vasovagal in relation to bowel perforation/pain. Remains Sr with no events. 3. CAD: clinically stable. EF and WM nml 4. HTN: controlled 5. DM2/HLP 6. Morbid obesity. 7. Hx of gastric bypass: 03/2018 8. Hx of DM2: off meds as he lost about 80 pounds. Currently remains with hyperglycemia, per pcp. Recommendations' 1. Preop eval low to moderate for perioperative CV events with noncardiac surgery. Continue coreg preop if surgery is planned unless NPO still then IV. . 2, Antibiotics per ID 3. Follow up with [facility] as an outpt 4. Start on plavix postoperatively once cleared by general surgery. TRISTAN HERNANDEZ MD 06/13/18 1743: CARDIO Progress Notes Plan Plan Pt. seen and examined. Agree with above THEATRICAL SCENIC DESIGNER note. Supportive care for now while awaiting surgical plans. BP stable. If needed, ok to add Hydralazine IV prn. Continue b-kely. Will follow along peripherally. Thanks GLENROY INFANTE MACHINE OPERATOR CANE CUTTER Jun 13, 2018 11:37 TRISTAN HERNANDEZ MD Jun 13, 2018 17:43
[2018-06-13] MEDS: HYDROmorphone 2 MG/ML VIAL IV PRN ×2 (11:52→18:49)
--- NOTE | 2018-06-13 12:20 | PDOC ---
PROGRESS NOTES Chief Complaint Chief Complaint peritonitis perforated diverticulitis, acute obesity, BMI 40 dm htn recent gastric bypass 6 mos ago with 60 lbs weight loss History of Present Illness History of Present Illness feels better pain better has tenesmus sensation, no stool + flatus Vitals Vitals Vital Signs Date Time Temp Pulse Resp B/P (MAP) Pulse Ox O2 Delivery O2 Flow Rate FiO2 06/13/18 11:52 95 Room Air 06/13/18 09:55 78 136/78 06/13/18 07:00 98.6 16 98.6 Physical Exam Physical Exam CONSTITUTIONAL: He is lying comfortably in bed. He has no acute distress. HEENT: Pupils are equal and reactive. He has normal conjunctivae. Oral cavity, pharynx clear. NECK: Supple, no JVD. LUNGS: Decreased in the bases. HEART: S1, S2. ABDOMEN: Obese, soft, is diffusely tender. EXTREMITIES: Without clubbing or cyanosis. No gross edema. SKIN: Warm to touch without signs of rash. NEUROLOGIC: He is nonfocal and appropriate. PSYCHIATRIC: Affect is pleasant. General: Alert, Oriented X3, Cooperative, No acute distress Heart: Regular rate (SR), Normal S1, Normal S2, No murmurs Abdomen: Soft, Other (moderate ttp to RLQ, some guarding on exam ) Extremities: No cyanosis, No edema Skin: No breakdown, No significant lesion Labs LABS Laboratory Tests Test 06/12/18 16:42 06/12/18 20:45 06/13/18 03:50 06/13/18 07:16 Glucose (Fingerstick) 164 mg/dL (70-99) 151 mg/dL (70-99) 139 mg/dL (70-99) White Blood Count 9.0 x10^3/uL (4.0-11.0) Red Blood Count 3.84 x10^6/uL (4.30-5.70) Hemoglobin 11.3 g/dL (13.0-17.5) Hematocrit 33.4 % (39.0-53.0) Mean Corpuscular Volume 87 fL (79-100) Mean Corpuscular Hemoglobin 29 pg (25-35) Mean Corpuscular Hemoglobin Concent 34 g/dL (31-37) Red Cell Distribution Width 16.5 % (11.5-14.5) Platelet Count 178 x10^3/uL (140-400) Neutrophils (%) (Auto) 79 % (31-73) Lymphocytes (%) (Auto) 11 % (24-48) Monocytes (%) (Auto) 8 % (0-9) Eosinophils (%) (Auto) 1 % (0-3) Basophils (%) (Auto) 0 % (0-3) Neutrophils # (Auto) 7.1 x10^3uL (1.8-7.7) Lymphocytes # (Auto) 1.0 x10^3/uL (1.0-4.8) Monocytes # (Auto) 0.7 x10^3/uL (0.0-1.1) Eosinophils # (Auto) 0.1 x10^3/uL (0.0-0.7) Basophils # (Auto) 0.0 x10^3/uL (0.0-0.2) Sodium Level 143 mmol/L (136-145) Potassium Level 4.1 mmol/L (3.5-5.1) Chloride Level 109 mmol/L (98-107) Carbon Dioxide Level 26 mmol/L (21-32) Anion Gap 8 (6-14) Blood Urea Nitrogen 18 mg/dL (8-26) Creatinine 1.2 mg/dL (0.7-1.3) Estimated GFR (Cockcroft-Gault) 63.6 BUN/Creatinine Ratio 15 (6-20) Glucose Level 158 mg/dL (70-99) Calcium Level 8.7 mg/dL (8.5-10.1) Total Bilirubin 0.9 mg/dL (0.2-1.0) Aspartate Amino Transf (AST/SGOT) 13 U/L (15-37) Alanine Aminotransferase (ALT/SGPT) 18 U/L (16-63) Alkaline Phosphatase 37 U/L (46-116) Total Protein 6.6 g/dL (6.4-8.2) Albumin 3.1 g/dL (3.4-5.0) Albumin/Globulin Ratio 0.9 (1.0-1.7) Test 06/13/18 12:11 Glucose (Fingerstick) 160 mg/dL (70-99) Review of Systems Review of Systems abd pain, nausea, no stool Assessment and Plan Assessmemt and Plan Problems Medical Problems: (1) Diverticulitis of colon with perforation Status: Acute Comment Review of Relevant I have reviewed the following items thania (where applicable) has been applied. Labs Laboratory Tests Test 06/11/18 22:15 06/12/18 00:50 06/12/18 11:12 06/12/18 16:42 White Blood Count 8.0 x10^3/uL (4.0-11.0) Red Blood Count 4.43 x10^6/uL (4.30-5.70) Hemoglobin 12.7 g/dL (13.0-17.5) Hematocrit 38.3 % (39.0-53.0) Mean Corpuscular Volume 86 fL (79-100) Mean Corpuscular Hemoglobin 29 pg (25-35) Mean Corpuscular Hemoglobin Concent 33 g/dL (31-37) Red Cell Distribution Width 16.2 % (11.5-14.5) Platelet Count 208 x10^3/uL (140-400) Neutrophils (%) (Auto) 81 % (31-73) Lymphocytes (%) (Auto) 11 % (24-48) Monocytes (%) (Auto) 6 % (0-9) Eosinophils (%) (Auto) 1 % (0-3) Basophils (%) (Auto) 1 % (0-3) Neutrophils # (Auto) 6.5 x10^3uL (1.8-7.7) Lymphocytes # (Auto) 0.9 x10^3/uL (1.0-4.8) Monocytes # (Auto) 0.5 x10^3/uL (0.0-1.1) Eosinophils # (Auto) 0.1 x10^3/uL (0.0-0.7) Basophils # (Auto) 0.1 x10^3/uL (0.0-0.2) Prothrombin Time 13.9 SEC (11.7-14.0) Prothromb Time International Ratio 1.1 (0.8-1.1) Sodium Level 142 mmol/L (136-145) Potassium Level 3.9 mmol/L (3.5-5.1) Chloride Level 106 mmol/L (98-107) Carbon Dioxide Level 25 mmol/L (21-32) Anion Gap 11 (6-14) Blood Urea Nitrogen 22 mg/dL (8-26) Creatinine 1.0 mg/dL (0.7-1.3) Estimated GFR (Cockcroft-Gault) 78.5 BUN/Creatinine Ratio 22 (6-20) Glucose Level 172 mg/dL (70-99) Calcium Level 9.4 mg/dL (8.5-10.1) Total Bilirubin 0.5 mg/dL (0.2-1.0) Aspartate Amino Transf (AST/SGOT) 17 U/L (15-37) Alanine Aminotransferase (ALT/SGPT) 24 U/L (16-63) Alkaline Phosphatase 41 U/L (46-116) Troponin I Quantitative < 0.017 ng/mL (0.000-0.055) Total Protein 7.4 g/dL (6.4-8.2) Albumin 4.0 g/dL (3.4-5.0) Albumin/Globulin Ratio 1.2 (1.0-1.7) Ethyl Alcohol Level < 10 mg/dL (0-10) Urine Collection Type Void Urine Color Yellow Urine Clarity Clear Urine pH 6.0 Urine Specific [place] >=1.030 Urine Protein Negative mg/dL (NEG-TRACE) Urine Glucose (UA) >=1000 mg/dL (NEG) Urine Ketones (Stick) Trace mg/dL (NEG) Urine Blood Large (NEG) Urine Nitrite Negative (NEG) Urine Bilirubin Negative (NEG) Urine Urobilinogen Dipstick 0.2 mg/dL (0.2 mg/dL) Urine Leukocyte Esterase Negative (NEG) Urine RBC Tntc /HPF (0-2) Urine WBC Occ /HPF (0-4) Urine Squamous Epithelial Cells None /LPF Urine Bacteria 0 /HPF (0-FEW) Urine Opiates Screen Neg (NEG) Urine Methadone Screen Neg (NEG) Urine Barbiturates Neg (NEG) Urine Phencyclidine Screen Neg (NEG) Urine Amphetamine/Methamphetamine Neg (NEG) Urine Benzodiazepines Screen Neg (NEG) Urine Cocaine Screen Neg (NEG) Urine Cannabinoids Screen Neg (NEG) Urine Ethyl Alcohol Neg (NEG) Glucose (Fingerstick) 167 mg/dL (70-99) 164 mg/dL (70-99) Test 06/12/18 20:45 06/13/18 03:50 06/13/18 07:16 06/13/18 12:11 Glucose (Fingerstick) 151 mg/dL (70-99) 139 mg/dL (70-99) 160 mg/dL (70-99) White Blood Count 9.0 x10^3/uL (4.0-11.0) Red Blood Count 3.84 x10^6/uL (4.30-5.70) Hemoglobin 11.3 g/dL (13.0-17.5) Hematocrit 33.4 % (39.0-53.0) Mean Corpuscular Volume 87 fL (79-100) Mean Corpuscular Hemoglobin 29 pg (25-35) Mean Corpuscular Hemoglobin Concent 34 g/dL (31-37) Red Cell Distribution Width 16.5 % (11.5-14.5) Platelet Count 178 x10^3/uL (140-400) Neutrophils (%) (Auto) 79 % (31-73) Lymphocytes (%) (Auto) 11 % (24-48) Monocytes (%) (Auto) 8 % (0-9) Eosinophils (%) (Auto) 1 % (0-3) Basophils (%) (Auto) 0 % (0-3) Neutrophils # (Auto) 7.1 x10^3uL (1.8-7.7) Lymphocytes # (Auto) 1.0 x10^3/uL (1.0-4.8) Monocytes # (Auto) 0.7 x10^3/uL (0.0-1.1) Eosinophils # (Auto) 0.1 x10^3/uL (0.0-0.7) Basophils # (Auto) 0.0 x10^3/uL (0.0-0.2) Sodium Level 143 mmol/L (136-145) Potassium Level 4.1 mmol/L (3.5-5.1) Chloride Level 109 mmol/L (98-107) Carbon Dioxide Level 26 mmol/L (21-32) Anion Gap 8 (6-14) Blood Urea Nitrogen 18 mg/dL (8-26) Creatinine 1.2 mg/dL (0.7-1.3) Estimated GFR (Cockcroft-Gault) 63.6 BUN/Creatinine Ratio 15 (6-20) Glucose Level 158 mg/dL (70-99) Calcium Level 8.7 mg/dL (8.5-10.1) Total Bilirubin 0.9 mg/dL (0.2-1.0) Aspartate Amino Transf (AST/SGOT) 13 U/L (15-37) Alanine Aminotransferase (ALT/SGPT) 18 U/L (16-63) Alkaline Phosphatase 37 U/L (46-116) Total Protein 6.6 g/dL (6.4-8.2) Albumin 3.1 g/dL (3.4-5.0) Albumin/Globulin Ratio 0.9 (1.0-1.7) Laboratory Tests Test 06/12/18 16:42 06/12/18 20:45 06/13/18 03:50 06/13/18 07:16 Glucose (Fingerstick) 164 mg/dL (70-99) 151 mg/dL (70-99) 139 mg/dL (70-99) White Blood Count 9.0 x10^3/uL (4.0-11.0) Red Blood Count 3.84 x10^6/uL (4.30-5.70) Hemoglobin 11.3 g/dL (13.0-17.5) Hematocrit 33.4 % (39.0-53.0) Mean Corpuscular Volume 87 fL (79-100) Mean Corpuscular Hemoglobin 29 pg (25-35) Mean Corpuscular Hemoglobin Concent 34 g/dL (31-37) Red Cell Distribution Width 16.5 % (11.5-14.5) Platelet Count 178 x10^3/uL (140-400) Neutrophils (%) (Auto) 79 % (31-73) Lymphocytes (%) (Auto) 11 % (24-48) Monocytes (%) (Auto) 8 % (0-9) Eosinophils (%) (Auto) 1 % (0-3) Basophils (%) (Auto) 0 % (0-3) Neutrophils # (Auto) 7.1 x10^3uL (1.8-7.7) Lymphocytes # (Auto) 1.0 x10^3/uL (1.0-4.8) Monocytes # (Auto) 0.7 x10^3/uL (0.0-1.1) Eosinophils # (Auto) 0.1 x10^3/uL (0.0-0.7) Basophils # (Auto) 0.0 x10^3/uL (0.0-0.2) Sodium Level 143 mmol/L (136-145) Potassium Level 4.1 mmol/L (3.5-5.1) Chloride Level 109 mmol/L (98-107) Carbon Dioxide Level 26 mmol/L (21-32) Anion Gap 8 (6-14) Blood Urea Nitrogen 18 mg/dL (8-26) Creatinine 1.2 mg/dL (0.7-1.3) Estimated GFR (Cockcroft-Gault) 63.6 BUN/Creatinine Ratio 15 (6-20) Glucose Level 158 mg/dL (70-99) Calcium Level 8.7 mg/dL (8.5-10.1) Total Bilirubin 0.9 mg/dL (0.2-1.0) Aspartate Amino Transf (AST/SGOT) 13 U/L (15-37) Alanine Aminotransferase (ALT/SGPT) 18 U/L (16-63) Alkaline Phosphatase 37 U/L (46-116) Total Protein 6.6 g/dL (6.4-8.2) Albumin 3.1 g/dL (3.4-5.0) Albumin/Globulin Ratio 0.9 (1.0-1.7) Test 06/13/18 12:11 Glucose (Fingerstick) 160 mg/dL (70-99) Medications Current Medications Fentanyl Citrate (Fentanyl 2ml Vial) 50 mcg 1X ONCE IV Last administered on 06/11/18at 22:46; Start 06/11/18 at 22:45; Stop 06/11/18 at 22:46; Status DC Ondansetron HCl (Zofran) 4 mg 1X ONCE IV Last administered on 06/11/18at 22:46; Start 06/11/18 at 22:45; Stop 06/11/18 at 22:46; Status DC Sodium Chloride 1,000 ml @ 1,000 mls/hr 1X ONCE IV Last administered on 06/11/18at 22:47; Start 06/11/18 at 22:45; Stop 06/11/18 at 23:44; Status DC Iohexol (Omnipaque 300 Mg/ml) 75 ml 1X ONCE IV Last administered on 06/11/18at 23:15; Start 06/11/18 at 23:15; Stop 06/11/18 at 23:16; Status DC Info (CONTRAST GIVEN -- Rx MONITORING) 1 each PRN DAILY PRN MC SEE COMMENTS; Start 06/11/18 at 23:15; Stop 06/13/18 at 23:14 Piperacillin Sod/ Tazobactam Sod (Zosyn Per Pharmacy) 1 each PRN DAILY PRN MC SEE COMMENTS; Start 06/12/18 at 02:30 Hydromorphone HCl (Dilaudid) 1 mg PRN Q4HRS PRN IV MODERATE PAIN Last administered on 06/13/18at 11:52; Start 06/12/18 at 02:00 Ondansetron HCl (Zofran) 4 mg PRN Q8HRS PRN IV NAUSEA/VOMITING; Start 06/12/18 at 02:00; Stop 06/13/18 at 01:59; Status DC Sodium Chloride 1,000 ml @ 100 mls/hr Q10H IV Last administered on 06/13/18at 01:01; Start 06/12/18 at 01:53; Stop 06/13/18 at 01:52; Status DC Piperacillin Sod/ Tazobactam Sod 4.5 gm/Sodium Chloride 100 ml @ 200 mls/hr Q6HRS IV Last administered on 06/13/18at 06:00; Start 06/12/18 at 02:30 Tamsulosin HCl (Flomax) 0.4 mg DAILY PO ; Start 06/12/18 at 10:00 Pantoprazole Sodium (PROTONIX VIAL for IV PUSH) 40 mg DAILYAC IVP Last administered on 06/13/18 09:54; Start 06/12/18 at 10:00 Metoprolol Tartrate (Lopressor Vial) 2.5 mg BID IVP Last administered on 06/13/18at 09:55; Start 06/12/18 at 21:00 Fentanyl Citrate (Fentanyl 2ml Vial) 100 mcg PRN Q4HRS PRN IV SEVERE PAIN; Start 06/12/18 at 09:45 Ketorolac Tromethamine (Toradol 15mg Vial) 15 mg 1X ONCE IV Last administered on 06/12/18at 11:16; Start 06/12/18 at 09:45; Stop 06/12/18 at 09:46; Status DC Saliva Substitute (Biotene Moisturizing Mouth) 2 spray PRN Q15MIN PRN PO DRY MOUTH Last administered on 06/13/18at 11:52; Start 06/12/18 at 09:45 Insulin Human Lispro (HumaLOG) 0-7 UNITS TIDWMEALS SQ ; Start 06/12/18 at 12:00 Dextrose (Dextrose 50%-Water Syringe) 12.5 gm PRN Q15MIN PRN IV SEE COMMENTS; Start 06/12/18 at 10:00 Micafungin Sodium 100 mg/Dextrose 100 ml @ 100 mls/hr Q24H IV Last administered on 06/12/18at 12:52; Start 06/12/18 at 12:00 Vancomycin HCl (Vanco Per Pharmacy) 1 each PRN DAILY PRN MC SEE COMMENTS Last administered on 06/12/18at 15:16; Start 06/12/18 at 10:45 Vancomycin HCl 2 gm/Sodium Chloride 500 ml @ 250 mls/hr 1X ONCE IV Last administered on 06/12/18at 14:47; Start 06/12/18 at 11:30; Stop 06/12/18 at 13:29; Status DC Vancomycin HCl 1.75 gm/Sodium Chloride 500 ml @ 250 mls/hr Q12H IV Last administered on 06/13/18at 03:00; Start 06/13/18 at 03:00 Vancomycin HCl (Vancomycin Trough Level) 1 each 1X ONCE MC ; Start 06/14/18 at 02:30; Stop 06/14/18 at 02:31 Sodium Chloride 1,000 ml @ 1,000 mls/hr 1X ONCE IV Last administered on at 10:35; Start 06/13/18 at 10:30; Stop 06/13/18 at 11:29; Status DC Amino Acids/ Glycerin/ Electrolytes 1,000 ml @ 80 mls/hr [id number] IV ; Start 06/13/18 at 11:00 Sodium Monofluorophosphate (Fleet Adult) 133 ml 1X ONCE OK ; Start 06/13/18 at 11:00; Stop 06/13/18 at 11:00; Status DC Active Scripts Active Reported [bariatric vitamins] Citracal + D Er Tablet (Calcium Carb & Cit/Vitamin D3) 1 Each Tablet.er 1 Each PO DAILY Acidophilus (Lactobacillus Acidophilus) 100 Mg Capsule 100 Mg PO DAILY Flomax (Tamsulosin Hcl) 0.4 Mg Cap.er.24h 0.4 Mg PO DAILY Fenofibrate (Fenofibrate Nanocrystallized) 145 Mg Tablet 1 Tab PO DAILY [losartan] Coreg (Carvedilol) 25 Mg Tablet 37.5 Mg PO BIDWMEALS Protonix (Pantoprazole Sodium) 20 Mg Tablet.dr 1 Tab PO DAILY Vitals/I & O Vital Sign - Last 24 Hours 06/12/18 06/12/18 06/12/18 06/12/18 15:00 17:07 18:34 19:56 Temp 99.0 98.4 99.0 98.4 Pulse 74 71 Resp 18 18 B/P (MAP) 122/75 (91) 137/85 (102) Pulse Ox 96 96 96 92 O2 Delivery Room Air Room Air Room Air Room Air 06/12/18 06/12/18 06/12/18 06/12/18 20:00 21:43 21:44 22:13 Pulse 71 Resp 18 17 B/P (MAP) 137/85 Pulse Ox 92 O2 Delivery Room Air Room Air 06/12/18 06/13/18 06/13/18 06/13/18 23:22 03:10 07:00 09:55 Temp 98.4 98.7 98.6 98.4 98.7 98.6 Pulse 75 64 78 78 Resp 16 16 16 B/P (MAP) 106/61 (76) 133/77 (95) 136/78 (97) 136/78 Pulse Ox 93 94 95 O2 Delivery Room Air Room Air Room Air 06/13/18 11:52 Pulse Ox 95 O2 Delivery Room Air Intake and Output 06/12/18 06/12/18 06/13/18 15:00 23:00 07:00 Intake Total 0 ml 0 ml Output Total 300 ml 100 ml Balance -300 ml 0 ml -100 ml AYDIN AVILEZ MD Jun 13, 2018 12:20
[2018-06-13] MEDS: INSULIN GLARGINE 300 UNITS/3 ML INSULN.PEN. SQ SCH (12:30)
[2018-06-13] MEDS: VANCOMYCIN PER PHARMACY MC PRN (13:17)
[2018-06-13] MEDS: AMINO AC 3%/ELECTROLYTE/GLYCER 1,000 ML IV SCH ×2 (14:09→23:30)
[2018-06-13] MEDS: MICAFUNGIN 100 MG in IV DEXTROSE 5% 100ML 100 ML IV SCH (14:50)
[2018-06-13 15:00] VITALS: BP 144/86
--- NOTE | 2018-06-13 17:34 | RAD ---
ABDOMEN AP Clinical Indication: PERFORATED DIVERTICULA, FEELS CONSTIPATED Comparison: CT abdomen and pelvis with contrast, 2 days ago. Findings: No dilated loops of bowel are seen. The bowel gas pattern is nonobstructive. Scattered air in the transverse colon. There are a few air-filled nondilated small bowel loops. Cholecystectomy clips. Phleboliths in the right pelvis. There is degenerative endplate spurring of the lumbar spine. IMPRESSION: Nonobstructive bowel gas pattern. Electronically signed by: Darrick Sheridan MD (06/13/2018 5:31 PM) [id number]
[2018-06-13 19:45] VITALS: BP 143/79
[2018-06-13 23:40] VITALS: BP 128/78
[2018-06-14 00:12] LABS: HEMOGLOBIN A1C 5.9 % (4.8-5.6)
[2018-06-14] MEDS: HYDROmorphone 2 MG/ML VIAL IV PRN ×3 (02:33→21:35)
[2018-06-14 02:58] LABS: VANC TR 11.6 mcg/mL (10.0-20.0)
[2018-06-14] MEDS: VANCOMYCIN PER PHARMACY MC PRN (03:20)
[2018-06-14] MEDS: VANCOMYCIN 1.75 GM in IV NORMAL SALINE 500ML BAG 500 ML IV SCH ×2 (03:28→15:48)
[2018-06-14 03:38] VITALS: BP 130/84
[2018-06-14 04:25] LABS: BASO % 0 % (0-3); EOS # 0.2 x10^3/uL (0.0-0.7); EOS % 2 % (0-3); HEMATOCRIT 30.7 % (39.0-53.0); HEMOGLOBIN 10.2 g/dL (13.0-17.5); LYMPH # 1.1 x10^3/uL (1.0-4.8); LYMPH % 13 % (24-48); MEAN CORPUSCULAR HEMOGLOBIN 29 pg (25-35); MEAN CORPUSCULAR HGB CONC 33 g/dL (31-37); MEAN CORPUSCULAR VOLUME 87 fL (79-100); MONO # 0.7 x10^3/uL (0.0-1.1); MONO % 8 % (0-9); NEUT # 6.4 x10^3uL (1.8-7.7); NEUT % 77 % (31-73); PLATELET COUNT 173 x10^3/uL (140-400); RED BLOOD COUNT 3.53 x10^6/uL (4.30-5.70); RED CELL DISTRIBUTION WIDTH 16.4 % (11.5-14.5); WHITE BLOOD COUNT 8.3 x10^3/uL (4.0-11.0)
[2018-06-14 04:46] LABS: CALCIUM 8.8 mg/dL (8.5-10.1); GFR 78.5; POTASSIUM 3.8 mmol/L (3.5-5.1)
[2018-06-14] MEDS: PIPERACILLIN/TAZOBACTAM 4.5 GM in IV NORMAL SALINE 100ML 100 ML IV SCH ×4 (06:03→23:52)
[2018-06-14 07:00] VITALS: BP 136/86
[2018-06-14] MEDS: INSULIN LISPRO 300 UNITS/3 ML INSULN.PEN. SQ SCH ×3 (08:00→17:00)
[2018-06-14] MEDS: INSULIN GLARGINE 300 UNITS/3 ML INSULN.PEN. SQ SCH (09:00)
[2018-06-14] MEDS: TAMSULOSIN 0.4 MG CAP.ER.24H. PO SCH (09:00)
[2018-06-14] MEDS ORDERED: IV NORMAL SALINE 1000ML BAG 1,000 ML IV ONE (09:15)
--- NOTE | 2018-06-14 09:41 | PDOC ---
PROGRESS NOTES Chief Complaint Chief Complaint peritonitis perforated diverticulitis, acute obesity, BMI 40 dm htn recent gastric bypass 6 mos ago with 60 lbs weight loss History of Present Illness History of Present Illness feels better pain better has tenesmus sensation, no stool + flatus he is frustrated that he cannot drink sweet tea, he wanted a CT scan today, discussed at length that waiting even another day would likely be of benefit, time > 25 minutes in room, 2 visits. Vitals Vitals Vital Signs Date Time Temp Pulse Resp B/P (MAP) Pulse Ox O2 Delivery O2 Flow Rate FiO2 06/14/18 07:00 98.6 64 18 136/86 (103) 96 Room Air 98.6 Physical Exam Physical Exam CONSTITUTIONAL: He is lying comfortably in bed. He has no acute distress. HEENT: Pupils are equal and reactive. He has normal conjunctivae. Oral SKIN: Warm to touch without signs of rash. NEUROLOGIC: He is nonfocal and appropriate. PSYCHIATRIC: Affect is pleasant. General: Alert, Oriented X3, Cooperative, No acute distress Heart: Regular rate (SR), Normal S1, Normal S2, No murmurs Abdomen: Other (moderate ttp to RLQ, some guarding on exam ) Extremities: No cyanosis, No edema Skin: No breakdown, No significant lesion Labs LABS Laboratory Tests Test 06/13/18 12:11 06/13/18 16:46 06/13/18 20:48 06/14/18 02:30 Glucose (Fingerstick) 160 mg/dL (70-99) 146 mg/dL (70-99) 156 mg/dL (70-99) White Blood Count 8.3 x10^3/uL (4.0-11.0) Red Blood Count 3.53 x10^6/uL (4.30-5.70) Hemoglobin 10.2 g/dL (13.0-17.5) Hematocrit 30.7 % (39.0-53.0) Mean Corpuscular Volume 87 fL (79-100) Mean Corpuscular Hemoglobin 29 pg (25-35) Mean Corpuscular Hemoglobin Concent 33 g/dL (31-37) Red Cell Distribution Width 16.4 % (11.5-14.5) Platelet Count 173 x10^3/uL (140-400) Neutrophils (%) (Auto) 77 % (31-73) Lymphocytes (%) (Auto) 13 % (24-48) Monocytes (%) (Auto) 8 % (0-9) Eosinophils (%) (Auto) 2 % (0-3) Basophils (%) (Auto) 0 % (0-3) Neutrophils # (Auto) 6.4 x10^3uL (1.8-7.7) Lymphocytes # (Auto) 1.1 x10^3/uL (1.0-4.8) Monocytes # (Auto) 0.7 x10^3/uL (0.0-1.1) Eosinophils # (Auto) 0.2 x10^3/uL (0.0-0.7) Basophils # (Auto) 0.0 x10^3/uL (0.0-0.2) Sodium Level 144 mmol/L (136-145) Potassium Level 3.8 mmol/L (3.5-5.1) Chloride Level 109 mmol/L (98-107) Carbon Dioxide Level 24 mmol/L (21-32) Anion Gap 11 (6-14) Blood Urea Nitrogen 14 mg/dL (8-26) Creatinine 1.0 mg/dL (0.7-1.3) Estimated GFR (Cockcroft-Gault) 78.5 Glucose Level 165 mg/dL (70-99) Calcium Level 8.8 mg/dL (8.5-10.1) Vancomycin Level Trough 11.6 mcg/mL (10.0-20.0) Vancomycin Last Dose Date Vancomycin Last Dose Time Test 06/14/18 08:00 Glucose (Fingerstick) 133 mg/dL (70-99) Assessment and Plan Assessmemt and Plan Problems Medical Problems: (1) Diverticulitis of colon with perforation Status: Acute Comment Review of Relevant I have reviewed the following items thania (where applicable) has been applied. Labs Laboratory Tests Test 06/12/18 11:12 06/12/18 16:42 06/12/18 20:45 06/13/18 03:50 Glucose (Fingerstick) 167 mg/dL (70-99) 164 mg/dL (70-99) 151 mg/dL (70-99) White Blood Count 9.0 x10^3/uL (4.0-11.0) Red Blood Count 3.84 x10^6/uL (4.30-5.70) Hemoglobin 11.3 g/dL (13.0-17.5) Hematocrit 33.4 % (39.0-53.0) Mean Corpuscular Volume 87 fL (79-100) Mean Corpuscular Hemoglobin 29 pg (25-35) Mean Corpuscular Hemoglobin Concent 34 g/dL (31-37) Red Cell Distribution Width 16.5 % (11.5-14.5) Platelet Count 178 x10^3/uL (140-400) Neutrophils (%) (Auto) 79 % (31-73) Lymphocytes (%) (Auto) 11 % (24-48) Monocytes (%) (Auto) 8 % (0-9) Eosinophils (%) (Auto) 1 % (0-3) Basophils (%) (Auto) 0 % (0-3) Neutrophils # (Auto) 7.1 x10^3uL (1.8-7.7) Lymphocytes # (Auto) 1.0 x10^3/uL (1.0-4.8) Monocytes # (Auto) 0.7 x10^3/uL (0.0-1.1) Eosinophils # (Auto) 0.1 x10^3/uL (0.0-0.7) Basophils # (Auto) 0.0 x10^3/uL (0.0-0.2) Sodium Level 143 mmol/L (136-145) Potassium Level 4.1 mmol/L (3.5-5.1) Chloride Level 109 mmol/L (98-107) Carbon Dioxide Level 26 mmol/L (21-32) Anion Gap 8 (6-14) Blood Urea Nitrogen 18 mg/dL (8-26) Creatinine 1.2 mg/dL (0.7-1.3) Estimated GFR (Cockcroft-Gault) 63.6 BUN/Creatinine Ratio 15 (6-20) Glucose Level 158 mg/dL (70-99) Hemoglobin A1c 5.9 % (4.8-5.6) Calcium Level 8.7 mg/dL (8.5-10.1) Total Bilirubin 0.9 mg/dL (0.2-1.0) Aspartate Amino Transf (AST/SGOT) 13 U/L (15-37) Alanine Aminotransferase (ALT/SGPT) 18 U/L (16-63) Alkaline Phosphatase 37 U/L (46-116) Total Protein 6.6 g/dL (6.4-8.2) Albumin 3.1 g/dL (3.4-5.0) Albumin/Globulin Ratio 0.9 (1.0-1.7) Test 06/13/18 07:16 06/13/18 12:11 06/13/18 16:46 06/13/18 20:48 Glucose (Fingerstick) 139 mg/dL (70-99) 160 mg/dL (70-99) 146 mg/dL (70-99) 156 mg/dL (70-99) Test 06/14/18 02:30 06/14/18 08:00 White Blood Count 8.3 x10^3/uL (4.0-11.0) Red Blood Count 3.53 x10^6/uL (4.30-5.70) Hemoglobin 10.2 g/dL (13.0-17.5) Hematocrit 30.7 % (39.0-53.0) Mean Corpuscular Volume 87 fL (79-100) Mean Corpuscular Hemoglobin 29 pg (25-35) Mean Corpuscular Hemoglobin Concent 33 g/dL (31-37) Red Cell Distribution Width 16.4 % (11.5-14.5) Platelet Count 173 x10^3/uL (140-400) Neutrophils (%) (Auto) 77 % (31-73) Lymphocytes (%) (Auto) 13 % (24-48) Monocytes (%) (Auto) 8 % (0-9) Eosinophils (%) (Auto) 2 % (0-3) Basophils (%) (Auto) 0 % (0-3) Neutrophils # (Auto) 6.4 x10^3uL (1.8-7.7) Lymphocytes # (Auto) 1.1 x10^3/uL (1.0-4.8) Monocytes # (Auto) 0.7 x10^3/uL (0.0-1.1) Eosinophils # (Auto) 0.2 x10^3/uL (0.0-0.7) Basophils # (Auto) 0.0 x10^3/uL (0.0-0.2) Sodium Level 144 mmol/L (136-145) Potassium Level 3.8 mmol/L (3.5-5.1) Chloride Level 109 mmol/L (98-107) Carbon Dioxide Level 24 mmol/L (21-32) Anion Gap 11 (6-14) Blood Urea Nitrogen 14 mg/dL (8-26) Creatinine 1.0 mg/dL (0.7-1.3) Estimated GFR (Cockcroft-Gault) 78.5 Glucose Level 165 mg/dL (70-99) Calcium Level 8.8 mg/dL (8.5-10.1) Vancomycin Level Trough 11.6 mcg/mL (10.0-20.0) Vancomycin Last Dose Date Vancomycin Last Dose Time Glucose (Fingerstick) 133 mg/dL (70-99) Laboratory Tests Test 06/13/18 12:11 06/13/18 16:46 06/13/18 20:48 06/14/18 02:30 Glucose (Fingerstick) 160 mg/dL (70-99) 146 mg/dL (70-99) 156 mg/dL (70-99) White Blood Count 8.3 x10^3/uL (4.0-11.0) Red Blood Count 3.53 x10^6/uL (4.30-5.70) Hemoglobin 10.2 g/dL (13.0-17.5) Hematocrit 30.7 % (39.0-53.0) Mean Corpuscular Volume 87 fL (79-100) Mean Corpuscular Hemoglobin 29 pg (25-35) Mean Corpuscular Hemoglobin Concent 33 g/dL (31-37) Red Cell Distribution Width 16.4 % (11.5-14.5) Platelet Count 173 x10^3/uL (140-400) Neutrophils (%) (Auto) 77 % (31-73) Lymphocytes (%) (Auto) 13 % (24-48) Monocytes (%) (Auto) 8 % (0-9) Eosinophils (%) (Auto) 2 % (0-3) Basophils (%) (Auto) 0 % (0-3) Neutrophils # (Auto) 6.4 x10^3uL (1.8-7.7) Lymphocytes # (Auto) 1.1 x10^3/uL (1.0-4.8) Monocytes # (Auto) 0.7 x10^3/uL (0.0-1.1) Eosinophils # (Auto) 0.2 x10^3/uL (0.0-0.7) Basophils # (Auto) 0.0 x10^3/uL (0.0-0.2) Sodium Level 144 mmol/L (136-145) Potassium Level 3.8 mmol/L (3.5-5.1) Chloride Level 109 mmol/L (98-107) Carbon Dioxide Level 24 mmol/L (21-32) Anion Gap 11 (6-14) Blood Urea Nitrogen 14 mg/dL (8-26) Creatinine 1.0 mg/dL (0.7-1.3) Estimated GFR (Cockcroft-Gault) 78.5 Glucose Level 165 mg/dL (70-99) Calcium Level 8.8 mg/dL (8.5-10.1) Vancomycin Level Trough 11.6 mcg/mL (10.0-20.0) Vancomycin Last Dose Date Vancomycin Last Dose Time Test 06/14/18 08:00 Glucose (Fingerstick) 133 mg/dL (70-99) Medications Current Medications Fentanyl Citrate (Fentanyl 2ml Vial) 50 mcg 1X ONCE IV Last administered on 06/11/18at 22:46; Start 06/11/18 at 22:45; Stop 06/11/18 at 22:46; Status DC Ondansetron HCl (Zofran) 4 mg 1X ONCE IV Last administered on 06/11/18at 22:46; Start 06/11/18 at 22:45; Stop 06/11/18 at 22:46; Status DC Sodium Chloride 1,000 ml @ 1,000 mls/hr 1X ONCE IV Last administered on at 22:47; Start 06/11/18 at 22:45; Stop 06/11/18 at 23:44; Status DC Iohexol (Omnipaque 300 Mg/ml) 75 ml 1X ONCE IV Last administered on 06/11/18at 23:15; Start 06/11/18 at 23:15; Stop 06/11/18 at 23:16; Status DC Info (CONTRAST GIVEN -- Rx MONITORING) 1 each PRN DAILY PRN MC SEE COMMENTS; Start 06/11/18 at 23:15; Stop 06/13/18 at 23:14; Status DC Piperacillin Sod/ Tazobactam Sod (Zosyn Per Pharmacy) 1 each PRN DAILY PRN MC SEE COMMENTS; Start 06/12/18 at 02:30 Hydromorphone HCl (Dilaudid) 1 mg PRN Q4HRS PRN IV MODERATE PAIN Last administered on 06/14/18 02:33; Start 06/12/18 at 02:00 Ondansetron HCl (Zofran) 4 mg PRN Q8HRS PRN IV NAUSEA/VOMITING; Start 06/12/18 at 02:00; Stop 06/13/18 at 01:59; Status DC Sodium Chloride 1,000 ml @ 100 mls/hr Q10H IV Last administered on 06/13/18at 01:01; Start 06/12/18 at 01:53; Stop 06/13/18 at 01:52; Status DC Piperacillin Sod/ Tazobactam Sod 4.5 gm/Sodium Chloride 100 ml @ 200 mls/hr Q6HRS IV Last administered on 06/14/18 06:03; Start 06/12/18 at 02:30 Tamsulosin HCl (Flomax) 0.4 mg DAILY PO ; Start 06/12/18 at 10:00 Pantoprazole Sodium (PROTONIX VIAL for IV PUSH) 40 mg DAILYAC IVP Last administered on 06/13/18 09:54; Start 06/12/18 at 10:00 Metoprolol Tartrate (Lopressor Vial) 2.5 mg BID IVP Last administered on 06/13/18at 21:33; Start 06/12/18 at 21:00 Fentanyl Citrate (Fentanyl 2ml Vial) 100 mcg PRN Q4HRS PRN IV SEVERE PAIN; Start 06/12/18 at 09:45 Ketorolac Tromethamine (Toradol 15mg Vial) 15 mg 1X ONCE IV Last administered on 06/12/18 11:16; Start 06/12/18 at 09:45; Stop 06/12/18 at 09:46; Status DC Saliva Substitute (Biotene Moisturizing Mouth) 2 spray PRN Q15MIN PRN PO DRY MOUTH Last administered on 06/13/18at 11:52; Start 06/12/18 at 09:45 Insulin Human Lispro (HumaLOG) 0-7 UNITS TIDWMEALS SQ ; Start 06/12/18 at 12:00 Dextrose (Dextrose 50%-Water Syringe) 12.5 gm PRN Q15MIN PRN IV SEE COMMENTS; Start 06/12/18 at 10:00 Micafungin Sodium 100 mg/Dextrose 100 ml @ 100 mls/hr Q24H IV Last administered on 06/13/18at 14:50; Start 06/12/18 at 12:00 Vancomycin HCl (Vanco Per Pharmacy) 1 each PRN DAILY PRN MC SEE COMMENTS Last administered on 06/14/18at 03:20; Start 06/12/18 at 10:45 Vancomycin HCl 2 gm/Sodium Chloride 500 ml @ 250 mls/hr 1X ONCE IV Last administered on 06/12/18at 14:47; Start 06/12/18 at 11:30; Stop 06/12/18 at 13:29; Status DC Vancomycin HCl 1.75 gm/Sodium Chloride 500 ml @ 250 mls/hr Q12H IV Last admi nistered on 06/14/18at 03:28; Start 06/13/18 at 03:00 Vancomycin HCl (Vancomycin Trough Level) 1 each 1X ONCE MC Last administered on 06/14/18at 02:30; Start 06/14/18 at 02:30; Stop 06/14/18 at 02:31; Status DC Sodium Chloride 1,000 ml @ 1,000 mls/hr 1X ONCE IV Last administered on 06/13/18at 10:35; Start 06/13/18 at 10:30; Stop 06/13/18 at 11:29; Status DC Amino Acids/ Glycerin/ Electrolytes 1,000 ml @ 80 mls/hr [id number] IV Last administered on 06/13/18at 14:09; Start 06/13/18 at 11:00 Sodium Monofluorophosphate (Fleet Adult) 133 ml 1X ONCE [place] ; Start 06/13/18 at 11:00; Stop 06/13/18 at 11:00; Status DC Insulin Glargine (Lantus) 8 units DAILY SQ ; Start 06/13/18 at 12:30 Sodium Chloride 1,000 ml @ 1,000 mls/hr 1X ONCE IV ; Start 06/14/18 at 09:15; Stop 06/14/18 at 10:14 Active Scripts Active Reported [bariatric vitamins] Citracal + D Er Tablet (Calcium Carb & Cit/Vitamin D3) 1 Each Tablet.er 1 Each PO DAILY Acidophilus (Lactobacillus Acidophilus) 100 Mg Capsule 100 Mg PO DAILY Flomax (Tamsulosin Hcl) 0.4 Mg Cap.er.24h 0.4 Mg PO DAILY Fenofibrate (Fenofibrate Nanocrystallized) 145 Mg Tablet 1 Tab PO DAILY [losartan] Coreg (Carvedilol) 25 Mg Tablet 37.5 Mg PO BIDWMEALS Protonix (Pantoprazole Sodium) 20 Mg Tablet.dr 1 Tab PO DAILY Vitals/I & O Vital Sign - Last 24 Hours 06/13/18 06/13/18 06/13/18 06/13/18 09:55 11:52 15:00 18:49 Temp 98.4 98.4 Pulse 78 71 Resp 16 B/P (MAP) 136/78 144/86 (105) Pulse Ox 95 95 95 O2 Delivery Room Air Room Air Room Air 06/13/18 06/13/18 06/13/18 06/13/18 19:45 20:00 21:33 23:40 Temp 99.8 98.2 99.8 98.2 Pulse 74 74 64 Resp 16 18 B/P (MAP) 143/79 (100) 143/79 128/78 (95) Pulse Ox 95 94 O2 Delivery Room Air Room Air BiPAP/CPAP 06/14/18 06/14/18 06/14/18 06/14/18 02:33 03:09 03:38 07:00 Temp 98.5 98.6 98.5 98.6 Pulse 59 64 Resp 17 16 16 18 B/P (MAP) 130/84 (99) 136/86 (103) Pulse Ox 94 94 95 96 O2 Delivery Room Air Room Air BiPAP/CPAP Room Air Intake and Output 06/13/18 06/13/18 06/14/18 14:59 22:59 06:59 Intake Total 220 ml 110 ml 0 ml Output Total 550 ml 575 ml 250 ml Balance -330 ml -465 ml -250 ml AYDIN AVILEZ MD Jun 14, 2018 09:41
--- NOTE | 2018-06-14 09:44 | PDOC ---
JULIET NAVARRO DIGITAL PROJECT MANAGER 06/14/18 0944: SURGICAL PROGRESS NOTE Subjective pain worse overnight, now a little better had a stool this AM wants something to drink Vital Signs Vital Signs Date Time Temp Pulse Resp B/P (MAP) Pulse Ox O2 Delivery O2 Flow Rate FiO2 06/14/18 07:00 98.6 64 18 136/86 (103) 96 Room Air 98.6 I&O Intake and Output 06/14/18 07:00 Intake Total 330 ml Output Total 1375 ml Balance -1045 ml Intake Oral 330 ml Output Urine Total 1375 ml # Voids 5 General: Alert, Oriented X3, Cooperative, No acute distress Abdomen: Soft, Other (TTP lower abdomen, seems less tender than yesterday) Labs Laboratory Tests Test 06/12/18 11:12 06/12/18 16:42 06/12/18 20:45 06/13/18 03:50 Glucose (Fingerstick) 167 mg/dL (70-99) 164 mg/dL (70-99) 151 mg/dL (70-99) White Blood Count 9.0 x10^3/uL (4.0-11.0) Red Blood Count 3.84 x10^6/uL (4.30-5.70) Hemoglobin 11.3 g/dL (13.0-17.5) Hematocrit 33.4 % (39.0-53.0) Mean Corpuscular Volume 87 fL (79-100) Mean Corpuscular Hemoglobin 29 pg (25-35) Mean Corpuscular Hemoglobin Concent 34 g/dL (31-37) Red Cell Distribution Width 16.5 % (11.5-14.5) Platelet Count 178 x10^3/uL (140-400) Neutrophils (%) (Auto) 79 % (31-73) Lymphocytes (%) (Auto) 11 % (24-48) Monocytes (%) (Auto) 8 % (0-9) Eosinophils (%) (Auto) 1 % (0-3) Basophils (%) (Auto) 0 % (0-3) Neutrophils # (Auto) 7.1 x10^3uL (1.8-7.7) Lymphocytes # (Auto) 1.0 x10^3/uL (1.0-4.8) Monocytes # (Auto) 0.7 x10^3/uL (0.0-1.1) Eosinophils # (Auto) 0.1 x10^3/uL (0.0-0.7) Basophils # (Auto) 0.0 x10^3/uL (0.0-0.2) Sodium Level 143 mmol/L (136-145) Potassium Level 4.1 mmol/L (3.5-5.1) Chloride Level 109 mmol/L (98-107) Carbon Dioxide Level 26 mmol/L (21-32) Anion Gap 8 (6-14) Blood Urea Nitrogen 18 mg/dL (8-26) Creatinine 1.2 mg/dL (0.7-1.3) Estimated GFR (Cockcroft-Gault) 63.6 BUN/Creatinine Ratio 15 (6-20) Glucose Level 158 mg/dL (70-99) Hemoglobin A1c 5.9 % (4.8-5.6) Calcium Level 8.7 mg/dL (8.5-10.1) Total Bilirubin 0.9 mg/dL (0.2-1.0) Aspartate Amino Transf (AST/SGOT) 13 U/L (15-37) Alanine Aminotransferase (ALT/SGPT) 18 U/L (16-63) Alkaline Phosphatase 37 U/L (46-116) Total Protein 6.6 g/dL (6.4-8.2) Albumin 3.1 g/dL (3.4-5.0) Albumin/Globulin Ratio 0.9 (1.0-1.7) Test 06/13/18 07:16 06/13/18 12:11 06/13/18 16:46 06/13/18 20:48 Glucose (Fingerstick) 139 mg/dL (70-99) 160 mg/dL (70-99) 146 mg/dL (70-99) 156 mg/dL (70-99) Test 06/14/18 02:30 06/14/18 08:00 White Blood Count 8.3 x10^3/uL (4.0-11.0) Red Blood Count 3.53 x10^6/uL (4.30-5.70) Hemoglobin 10.2 g/dL (13.0-17.5) Hematocrit 30.7 % (39.0-53.0) Mean Corpuscular Volume 87 fL (79-100) Mean Corpuscular Hemoglobin 29 pg (25-35) Mean Corpuscular Hemoglobin Concent 33 g/dL (31-37) Red Cell Distribution Width 16.4 % (11.5-14.5) Platelet Count 173 x10^3/uL (140-400) Neutrophils (%) (Auto) 77 % (31-73) Lymphocytes (%) (Auto) 13 % (24-48) Monocytes (%) (Auto) 8 % (0-9) Eosinophils (%) (Auto) 2 % (0-3) Basophils (%) (Auto) 0 % (0-3) Neutrophils # (Auto) 6.4 x10^3uL (1.8-7.7) Lymphocytes # (Auto) 1.1 x10^3/uL (1.0-4.8) Monocytes # (Auto) 0.7 x10^3/uL (0.0-1.1) Eosinophils # (Auto) 0.2 x10^3/uL (0.0-0.7) Basophils # (Auto) 0.0 x10^3/uL (0.0-0.2) Sodium Level 144 mmol/L (136-145) Potassium Level 3.8 mmol/L (3.5-5.1) Chloride Level 109 mmol/L (98-107) Carbon Dioxide Level 24 mmol/L (21-32) Anion Gap 11 (6-14) Blood Urea Nitrogen 14 mg/dL (8-26) Creatinine 1.0 mg/dL (0.7-1.3) Estimated GFR (Cockcroft-Gault) 78.5 Glucose Level 165 mg/dL (70-99) Calcium Level 8.8 mg/dL (8.5-10.1) Vancomycin Level Trough 11.6 mcg/mL (10.0-20.0) Vancomycin Last Dose Date Vancomycin Last Dose Time Glucose (Fingerstick) 133 mg/dL (70-99) Laboratory Tests Test 06/13/18 12:11 06/13/18 16:46 06/13/18 20:48 06/14/18 02:30 Glucose (Fingerstick) 160 mg/dL (70-99) 146 mg/dL (70-99) 156 mg/dL (70-99) White Blood Count 8.3 x10^3/uL (4.0-11.0) Red Blood Count 3.53 x10^6/uL (4.30-5.70) Hemoglobin 10.2 g/dL (13.0-17.5) Hematocrit 30.7 % (39.0-53.0) Mean Corpuscular Volume 87 fL (79-100) Mean Corpuscular Hemoglobin 29 pg (25-35) Mean Corpuscular Hemoglobin Concent 33 g/dL (31-37) Red Cell Distribution Width 16.4 % (11.5-14.5) Platelet Count 173 x10^3/uL (140-400) Neutrophils (%) (Auto) 77 % (31-73) Lymphocytes (%) (Auto) 13 % (24-48) Monocytes (%) (Auto) 8 % (0-9) Eosinophils (%) (Auto) 2 % (0-3) Basophils (%) (Auto) 0 % (0-3) Neutrophils # (Auto) 6.4 x10^3uL (1.8-7.7) Lymphocytes # (Auto) 1.1 x10^3/uL (1.0-4.8) Monocytes # (Auto) 0.7 x10^3/uL (0.0-1.1) Eosinophils # (Auto) 0.2 x10^3/uL (0.0-0.7) Basophils # (Auto) 0.0 x10^3/uL (0.0-0.2) Sodium Level 144 mmol/L (136-145) Potassium Level 3.8 mmol/L (3.5-5.1) Chloride Level 109 mmol/L (98-107) Carbon Dioxide Level 24 mmol/L (21-32) Anion Gap 11 (6-14) Blood Urea Nitrogen 14 mg/dL (8-26) Creatinine 1.0 mg/dL (0.7-1.3) Estimated GFR (Cockcroft-Gault) 78.5 Glucose Level 165 mg/dL (70-99) Calcium Level 8.8 mg/dL (8.5-10.1) Vancomycin Level Trough 11.6 mcg/mL (10.0-20.0) Vancomycin Last Dose Date Vancomycin Last Dose Time Test 06/14/18 08:00 Glucose (Fingerstick) 133 mg/dL (70-99) Problem List Problems Medical Problems: (1) Diverticulitis of colon with perforation Status: Acute Assessment/Plan continue bowel rest, abx repeat ct Monday KIMBERLY WARE MD 06/14/182010: SURGICAL PROGRESS NOTE Assessment/Plan pt seen, interviewed and examined questions answered will offer clears JULIET NAVARRO D[employer] PROJECT MANAGER Jun 14, 2018 09:44 KIMBERLY WARE MD Jun 14, 2018 20:11
--- NOTE | 2018-06-14 10:19 | PDOC ---
Infectious Disease Note Subjective Subjective Frustrated he cannot drink anything and uncertainty of studies being scheduled Had a BM this am and feels some better No Fever. No SOA/rash/dysuria ROS ROS o/w neg Vital Sign Vital Signs Vital Signs Date Time Temp Pulse Resp B/P (MAP) Pulse Ox O2 Delivery O2 Flow Rate FiO2 06/14/18 07:00 98.6 64 18 136/86 (103) 96 Room Air 98.6 Physical Exam PHYSICAL EXAM CONSTITUTIONAL: He is lying comfortably in bed. He has no acute distress. HEENT: Pupils are equal and reactive. He has normal conjunctivae. Oral cavity, pharynx clear. NECK: Supple, no JVD. LUNGS: Decreased in the bases. HEART: S1, S2. ABDOMEN: Obese, soft, is diffusely tender but less. EXTREMITIES: Without clubbing or cyanosis. No gross edema. SKIN: Warm to touch without signs of rash. NEUROLOGIC: He is nonfocal and appropriate. PSYCHIATRIC: Affect is pleasant. Labs Lab Laboratory Tests Test 06/13/18 12:11 06/13/18 16:46 06/13/18 20:48 06/14/18 02:30 Glucose (Fingerstick) 160 mg/dL (70-99) 146 mg/dL (70-99) 156 mg/dL (70-99) White Blood Count 8.3 x10^3/uL (4.0-11.0) Red Blood Count 3.53 x10^6/uL (4.30-5.70) Hemoglobin 10.2 g/dL (13.0-17.5) Hematocrit 30.7 % (39.0-53.0) Mean Corpuscular Volume 87 fL (79-100) Mean Corpuscular Hemoglobin 29 pg (25-35) Mean Corpuscular Hemoglobin Concent 33 g/dL (31-37) Red Cell Distribution Width 16.4 % (11.5-14.5) Platelet Count 173 x10^3/uL (140-400) Neutrophils (%) (Auto) 77 % (31-73) Lymphocytes (%) (Auto) 13 % (24-48) Monocytes (%) (Auto) 8 % (0-9) Eosinophils (%) (Auto) 2 % (0-3) Basophils (%) (Auto) 0 % (0-3) Neutrophils # (Auto) 6.4 x10^3uL (1.8-7.7) Lymphocytes # (Auto) 1.1 x10^3/uL (1.0-4.8) Monocytes # (Auto) 0.7 x10^3/uL (0.0-1.1) Eosinophils # (Auto) 0.2 x10^3/uL (0.0-0.7) Basophils # (Auto) 0.0 x10^3/uL (0.0-0.2) Sodium Level 144 mmol/L (136-145) Potassium Level 3.8 mmol/L (3.5-5.1) Chloride Level 109 mmol/L (98-107) Carbon Dioxide Level 24 mmol/L (21-32) Anion Gap 11 (6-14) Blood Urea Nitrogen 14 mg/dL (8-26) Creatinine 1.0 mg/dL (0.7-1.3) Estimated GFR (Cockcroft-Gault) 78.5 Glucose Level 165 mg/dL (70-99) Calcium Level 8.8 mg/dL (8.5-10.1) Vancomycin Level Trough 11.6 mcg/mL (10.0-20.0) Vancomycin Last Dose Date Vancomycin Last Dose Time Test 06/14/18 08:00 Glucose (Fingerstick) 133 mg/dL (70-99) Micro 06/13 KUB IMPRESSION: Nonobstructive bowel gas pattern. IMPRESSION: 1. Wall thickening of the sigmoid colon with adjacent edema as well as air and debris. There is also free air seen elsewhere in the abdomen. This is most concerning for a perforated diverticulitis. 2. The appendix is dilated up to about a centimeter but the edema is more centered around the sigmoid colon rather than the appendix. This could be the patient's baseline appearance and some patients can have a dilated appendix at baseline however superimposed appendiceal inflammation would be difficult to exclude given the dilation. Objective Assessment Perforated Diverticulitis H/o Staph infection recent doxycycline in [place] around his Gastric bypass ? left max sinusitis on CT Sulfa allergy DM Plan Plan of Care Cont Zosyn/ Vanc and Micafungin F/u labs and cults Await further surgical decisions D/w nursing MARIETTA GONZALEZ MD Jun 14, 2018 10:19
[2018-06-14] MEDS: PANTOPRAZOLE IV PUSH 40 MG VIAL. IVP SCH (10:21)
[2018-06-14] MEDS: METOPROLOL TARTRATE 5 MG/5 ML VIAL. IVP SCH ×2 (10:22→21:34)
[2018-06-14 11:00] VITALS: BP 144/84
[2018-06-14] MEDS: MICAFUNGIN 100 MG in IV DEXTROSE 5% 100ML 100 ML IV SCH (14:09)
[2018-06-14 15:00] VITALS: BP 151/88
[2018-06-14] MEDS: AMINO AC 3%/ELECTROLYTE/GLYCER 1,000 ML IV SCH ×2 (15:47→21:43)
[2018-06-14 19:20] VITALS: BP 150/78
[2018-06-14 23:15] VITALS: BP 145/74
[2018-06-15] MEDS: HYDROmorphone 2 MG/ML VIAL IV PRN ×3 (01:34→23:18)
[2018-06-15] MEDS: VANCOMYCIN 1.75 GM in IV NORMAL SALINE 500ML BAG 500 ML IV SCH ×2 (03:10→14:52)
[2018-06-15 03:15] VITALS: BP 132/75
[2018-06-15] MEDS: PANTOPRAZOLE IV PUSH 40 MG VIAL. IVP SCH (05:49)
[2018-06-15] MEDS: PIPERACILLIN/TAZOBACTAM 4.5 GM in IV NORMAL SALINE 100ML 100 ML IV SCH ×4 (05:49→23:19)
[2018-06-15 07:15] VITALS: BP 151/90
[2018-06-15] MEDS: INSULIN LISPRO 300 UNITS/3 ML INSULN.PEN. SQ SCH ×3 (08:00→17:00)
[2018-06-15] MEDS: METOPROLOL TARTRATE 5 MG/5 ML VIAL. IVP SCH (09:00)
[2018-06-15] MEDS: INSULIN GLARGINE 300 UNITS/3 ML INSULN.PEN. SQ SCH (09:00)
--- NOTE | 2018-06-15 09:43 | PDOC ---
JULIET NAVARRO [employer] EXECUTIVE ASSISTANT 06/15/18 0943: SURGICAL PROGRESS NOTE Subjective overall pain is improved tolerating some clears no n/v had a stool using less pain meds Vital Signs Vital Signs Date Time Temp Pulse Resp B/P (MAP) Pulse Ox O2 Delivery O2 Flow Rate FiO2 06/15/18 07:15 97.7 56 18 151/90 (110) 96 BiPAP/CPAP 97.7 I&O Intake and Output 06/15/18 06:59 Intake Total 1800 ml Output Total 700 ml Balance 1100 ml Intake Oral 1600 ml IV Total 200 ml Output Urine Total 700 ml # Voids 4 # Bowel Movements 3 General: Alert, Oriented X3, Cooperative, No acute distress Abdomen: Soft, Other (mild RLQ TTP) Labs Laboratory Tests Test 06/13/18 12:11 06/13/18 16:46 06/13/18 20:48 06/14/18 02:30 Glucose (Fingerstick) 160 mg/dL (70-99) 146 mg/dL (70-99) 156 mg/dL (70-99) White Blood Count 8.3 x10^3/uL (4.0-11.0) Red Blood Count 3.53 x10^6/uL (4.30-5.70) Hemoglobin 10.2 g/dL (13.0-17.5) Hematocrit 30.7 % (39.0-53.0) Mean Corpuscular Volume 87 fL (79-100) Mean Corpuscular Hemoglobin 29 pg (25-35) Mean Corpuscular Hemoglobin Concent 33 g/dL (31-37) Red Cell Distribution Width 16.4 % (11.5-14.5) Platelet Count 173 x10^3/uL (140-400) Neutrophils (%) (Auto) 77 % (31-73) Lymphocytes (%) (Auto) 13 % (24-48) Monocytes (%) (Auto) 8 % (0-9) Eosinophils (%) (Auto) 2 % (0-3) Basophils (%) (Auto) 0 % (0-3) Neutrophils # (Auto) 6.4 x10^3uL (1.8-7.7) Lymphocytes # (Auto) 1.1 x10^3/uL (1.0-4.8) Monocytes # (Auto) 0.7 x10^3/uL (0.0-1.1) Eosinophils # (Auto) 0.2 x10^3/uL (0.0-0.7) Basophils # (Auto) 0.0 x10^3/uL (0.0-0.2) Sodium Level 144 mmol/L (136-145) Potassium Level 3.8 mmol/L (3.5-5.1) Chloride Level 109 mmol/L (98-107) Carbon Dioxide Level 24 mmol/L (21-32) Anion Gap 11 (6-14) Blood Urea Nitrogen 14 mg/dL (8-26) Creatinine 1.0 mg/dL (0.7-1.3) Estimated GFR (Cockcroft-Gault) 78.5 Glucose Level 165 mg/dL (70-99) Calcium Level 8.8 mg/dL (8.5-10.1) Vancomycin Level Trough 11.6 mcg/mL (10.0-20.0) Vancomycin Last Dose Date Vancomycin Last Dose Time Test 06/14/18 08:00 06/14/18 11:48 06/14/18 17:11 06/14/18 21:04 Glucose (Fingerstick) 133 mg/dL (70-99) 149 mg/dL (70-99) 144 mg/dL (70-99) 131 mg/dL (70-99) Test 06/15/18 07:13 Glucose (Fingerstick) 126 mg/dL (70-99) Laboratory Tests Test 06/14/18 11:48 06/14/18 17:11 06/14/18 21:04 06/15/18 07:13 Glucose (Fingerstick) 149 mg/dL (70-99) 144 mg/dL (70-99) 131 mg/dL (70-99) 126 mg/dL (70-99) Problem List Problems Medical Problems: (1) Diverticulitis of colon with perforation Status: Acute Assessment/Plan clears IV abx plan for CT in AM to TRISTON MORENO MD 06/15/18 1226: SURGICAL PROGRESS NOTE Assessment/Plan Pt seen and examined. Agree with Chadd's note Pt feels better, princess clears, loose stools abd soft, min TTP LLQ cont supportive care CT in AM JULIET NAVARRO APRN Jun 15, 2018 09:43 TRISTON VIERA MD Jun 15, 2018 12:26
--- NOTE | 2018-06-15 10:14 | PDOC ---
Infectious Disease Note Subjective Subjective Feels some better. tolerating Clears. Awaiting CT tomorrow No Fever. No SOA/rash/dysuria ROS ROS o/w neg Vital Sign Vital Signs Vital Signs Date Time Temp Pulse Resp B/P (MAP) Pulse Ox O2 Delivery O2 Flow Rate FiO2 06/15/18 07:15 97.7 56 18 151/90 (110) 96 BiPAP/CPAP 97.7 Physical Exam PHYSICAL EXAM CONSTITUTIONAL: He is lying comfortably in bed. He has no acute distress. HEENT: Pupils are equal and reactive. He has normal conjunctivae. Oral cavity, pharynx clear. NECK: Supple, no JVD. LUNGS: Decreased in the bases. HEART: S1, S2. ABDOMEN: Obese, soft, ND, NT EXTREMITIES: Without clubbing or cyanosis. No gross edema. SKIN: Warm to touch without signs of rash. NEUROLOGIC: He is nonfocal and appropriate. PSYCHIATRIC: Affect is pleasant. Labs Lab Laboratory Tests Test 06/14/18 11:48 06/14/18 17:11 06/14/18 21:04 06/15/18 07:13 Glucose (Fingerstick) 149 mg/dL (70-99) 144 mg/dL (70-99) 131 mg/dL (70-99) 126 mg/dL (70-99) Micro 06/13 KUB IMPRESSION: Nonobstructive bowel gas pattern. IMPRESSION: 1. Wall thickening of the sigmoid colon with adjacent edema as well as air and debris. There is also free air seen elsewhere in the abdomen. This is most concerning for a perforated diverticulitis. 2. The appendix is dilated up to about a centimeter but the edema is more centered around the sigmoid colon rather than the appendix. This could be the patient's baseline appearance and some patients can have a dilated appendix at baseline however superimposed appendiceal inflammation would be difficult to exclude given the dilation. Objective Assessment Perforated Diverticulitis H/o Staph infection recent doxycycline in [place] around his Gastric bypass ? left max sinusitis on CT Sulfa allergy DM Plan Plan of Care Cont Zosyn/ Vanc and Micafungin CT in am F/u labs and cults Await further surgical decisions D/w nursing and MARIETTA Bach MD Jun 15, 2018 10:14
[2018-06-15] MEDS: TAMSULOSIN 0.4 MG CAP.ER.24H. PO SCH (10:48)
[2018-06-15 11:13] VITALS: BP 138/71
[2018-06-15] MEDS: MICAFUNGIN 100 MG in IV DEXTROSE 5% 100ML 100 ML IV SCH (12:10)
[2018-06-15 12:18] LABS: CALCIUM 8.9 mg/dL (8.5-10.1); GFR 78.5; POTASSIUM 3.7 mmol/L (3.5-5.1)
[2018-06-15 12:21] LABS: BASO % 1 % (0-3); EOS # 0.2 x10^3/uL (0.0-0.7); EOS % 4 % (0-3); HEMATOCRIT 31.6 % (39.0-53.0); HEMOGLOBIN 10.7 g/dL (13.0-17.5); LYMPH # 0.8 x10^3/uL (1.0-4.8); LYMPH % 15 % (24-48); MEAN CORPUSCULAR HEMOGLOBIN 29 pg (25-35); MEAN CORPUSCULAR HGB CONC 34 g/dL (31-37); MEAN CORPUSCULAR VOLUME 86 fL (79-100); MONO # 0.5 x10^3/uL (0.0-1.1); MONO % 9 % (0-9); NEUT # 3.8 x10^3uL (1.8-7.7); NEUT % 71 % (31-73); PLATELET COUNT 205 x10^3/uL (140-400); RED BLOOD COUNT 3.67 x10^6/uL (4.30-5.70); RED CELL DISTRIBUTION WIDTH 15.9 % (11.5-14.5); WHITE BLOOD COUNT 5.3 x10^3/uL (4.0-11.0)
[2018-06-15] MEDS: AMINO AC 3%/ELECTROLYTE/GLYCER 1,000 ML IV SCH (13:00)
[2018-06-15] MEDS: VANCOMYCIN PER PHARMACY MC PRN (14:48)
[2018-06-15 15:00] VITALS: BP 171/93
[2018-06-15] MEDS: CARVEDILOL 12.5 MG TABLET. PO SCH (16:19)
[2018-06-15 19:15] VITALS: BP 154/70
--- NOTE | 2018-06-15 19:53 | PDOC ---
PROGRESS NOTES Chief Complaint Chief Complaint peritonitis perforated diverticulitis, acute obesity, BMI 40 dm htn recent gastric bypass 6 mos ago with 60 lbs weight loss History of Present Illness History of Present Illness he was very upset today about getting moved off telemetry, complaint to patient services abouit this otherwise he feels better, some water intake pain better has tenesmus sensation, no stool + flatus plan CT scan in AM Vitals Vitals Vital Signs Date Time Temp Pulse Resp B/P (MAP) Pulse Ox O2 Delivery O2 Flow Rate FiO2 06/15/18 18:31 96 Room Air 06/15/18 16:19 43 171/93 06/15/18 15:00 98.2 18 98.2 Physical Exam Physical Exam CONSTITUTIONAL: He is lying comfortably in bed. He has no acute distress. HEENT: Pupils are equal and reactive. He has normal conjunctivae. Oral cavity, pharynx clear. NECK: Supple, no JVD. LUNGS: Decreased in the bases. HEART: S1, S2. ABDOMEN: Obese, soft, ND, NT EXTREMITIES: Without clubbing or cyanosis. No gross edema. SKIN: Warm to touch without signs of rash. NEUROLOGIC: He is nonfocal and appropriate. PSYCHIATRIC: Affect is pleasant. General: Alert, Oriented X3, Cooperative, No acute distress Heart: Regular rate (SR), Normal S1, Normal S2, No murmurs Abdomen: Soft, Other (mild RLQ TTP) Extremities: No cyanosis, No edema Skin: No breakdown, No significant lesion Labs LABS Laboratory Tests Test 06/14/18 21:04 06/15/18 07:13 06/15/18 11:40 06/15/18 11:56 Glucose (Fingerstick) 131 mg/dL (70-99) 126 mg/dL (70-99) 144 mg/dL (70-99) White Blood Count 5.3 x10^3/uL (4.0-11.0) Red Blood Count 3.67 x10^6/uL (4.30-5.70) Hemoglobin 10.7 g/dL (13.0-17.5) Hematocrit 31.6 % (39.0-53.0) Mean Corpuscular Volume 86 fL (79-100) Mean Corpuscular Hemoglobin 29 pg (25-35) Mean Corpuscular Hemoglobin Concent 34 g/dL (31-37) Red Cell Distribution Width 15.9 % (11.5-14.5) Platelet Count 205 x10^3/uL (140-400) Neutrophils (%) (Auto) 71 % (31-73) Lymphocytes (%) (Auto) 15 % (24-48) Monocytes (%) (Auto) 9 % (0-9) Eosinophils (%) (Auto) 4 % (0-3) Basophils (%) (Auto) 1 % (0-3) Neutrophils # (Auto) 3.8 x10^3uL (1.8-7.7) Lymphocytes # (Auto) 0.8 x10^3/uL (1.0-4.8) Monocytes # (Auto) 0.5 x10^3/uL (0.0-1.1) Eosinophils # (Auto) 0.2 x10^3/uL (0.0-0.7) Basophils # (Auto) 0.0 x10^3/uL (0.0-0.2) Sodium Level 140 mmol/L (136-145) Potassium Level 3.7 mmol/L (3.5-5.1) Chloride Level 106 mmol/L (98-107) Carbon Dioxide Level 26 mmol/L (21-32) Anion Gap 8 (6-14) Blood Urea Nitrogen 11 mg/dL (8-26) Creatinine 1.0 mg/dL (0.7-1.3) Estimated GFR (Cockcroft-Gault) 78.5 Glucose Level 157 mg/dL (70-99) Calcium Level 8.9 mg/dL (8.5-10.1) Test 06/15/18 16:59 Glucose (Fingerstick) 121 mg/dL (70-99) Assessment and Plan Assessmemt and Plan Problems Medical Problems: (1) Diverticulitis of colon with perforation Status: Acute Comment Review of Relevant I have reviewed the following items thania (where applicable) has been applied. Labs Laboratory Tests Test 06/13/18 20:48 06/14/18 02:30 06/14/18 08:00 06/14/18 11:48 Glucose (Fingerstick) 156 mg/dL (70-99) 133 mg/dL (70-99) 149 mg/dL (70-99) White Blood Count 8.3 x10^3/uL (4.0-11.0) Red Blood Count 3.53 x10^6/uL (4.30-5.70) Hemoglobin 10.2 g/dL (13.0-17.5) Hematocrit 30.7 % (39.0-53.0) Mean Corpuscular Volume 87 fL (79-100) Mean Corpuscular Hemoglobin 29 pg (25-35) Mean Corpuscular Hemoglobin Concent 33 g/dL (31-37) Red Cell Distribution Width 16.4 % (11.5-14.5) Platelet Count 173 x10^3/uL (140-400) Neutrophils (%) (Auto) 77 % (31-73) Lymphocytes (%) (Auto) 13 % (24-48) Monocytes (%) (Auto) 8 % (0-9) Eosinophils (%) (Auto) 2 % (0-3) Basophils (%) (Auto) 0 % (0-3) Neutrophils # (Auto) 6.4 x10^3uL (1.8-7.7) Lymphocytes # (Auto) 1.1 x10^3/uL (1.0-4.8) Monocytes # (Auto) 0.7 x10^3/uL (0.0-1.1) Eosinophils # (Auto) 0.2 x10^3/uL (0.0-0.7) Basophils # (Auto) 0.0 x10^3/uL (0.0-0.2) Sodium Level 144 mmol/L (136-145) Potassium Level 3.8 mmol/L (3.5-5.1) Chloride Level 109 mmol/L (98-107) Carbon Dioxide Level 24 mmol/L (21-32) Anion Gap 11 (6-14) Blood Urea Nitrogen 14 mg/dL (8-26) Creatinine 1.0 mg/dL (0.7-1.3) Estimated GFR (Cockcroft-Gault) 78.5 Glucose Level 165 mg/dL (70-99) Calcium Level 8.8 mg/dL (8.5-10.1) Vancomycin Level Trough 11.6 mcg/mL (10.0-20.0) Vancomycin Last Dose Date Vancomycin Last Dose Time Test 06/14/18 17:11 06/14/18 21:04 06/15/18 07:13 06/15/18 11:40 Glucose (Fingerstick) 144 mg/dL (70-99) 131 mg/dL (70-99) 126 mg/dL (70-99) White Blood Count 5.3 x10^3/uL (4.0-11.0) Red Blood Count 3.67 x10^6/uL (4.30-5.70) Hemoglobin 10.7 g/dL (13.0-17.5) Hematocrit 31.6 % (39.0-53.0) Mean Corpuscular Volume 86 fL (79-100) Mean Corpuscular Hemoglobin 29 pg (25-35) Mean Corpuscular Hemoglobin Concent 34 g/dL (31-37) Red Cell Distribution Width 15.9 % (11.5-14.5) Platelet Count 205 x10^3/uL (140-400) Neutrophils (%) (Auto) 71 % (31-73) Lymphocytes (%) (Auto) 15 % (24-48) Monocytes (%) (Auto) 9 % (0-9) Eosinophils (%) (Auto) 4 % (0-3) Basophils (%) (Auto) 1 % (0-3) Neutrophils # (Auto) 3.8 x10^3uL (1.8-7.7) Lymphocytes # (Auto) 0.8 x10^3/uL (1.0-4.8) Monocytes # (Auto) 0.5 x10^3/uL (0.0-1.1) Eosinophils # (Auto) 0.2 x10^3/uL (0.0-0.7) Basophils # (Auto) 0.0 x10^3/uL (0.0-0.2) Sodium Level 140 mmol/L (136-145) Potassium Level 3.7 mmol/L (3.5-5.1) Chloride Level 106 mmol/L (98-107) Carbon Dioxide Level 26 mmol/L (21-32) Anion Gap 8 (6-14) Blood Urea Nitrogen 11 mg/dL (8-26) Creatinine 1.0 mg/dL (0.7-1.3) Estimated GFR (Cockcroft-Gault) 78.5 Glucose Level 157 mg/dL (70-99) Calcium Level 8.9 mg/dL (8.5-10.1) Test 06/15/18 11:56 06/15/18 16:59 Glucose (Fingerstick) 144 mg/dL (70-99) 121 mg/dL (70-99) Laboratory Tests Test 06/14/18 21:04 06/15/18 07:13 06/15/18 11:40 06/15/18 11:56 Glucose (Fingerstick) 131 mg/dL (70-99) 126 mg/dL (70-99) 144 mg/dL (70-99) White Blood Count 5.3 x10^3/uL (4.0-11.0) Red Blood Count 3.67 x10^6/uL (4.30-5.70) Hemoglobin 10.7 g/dL (13.0-17.5) Hematocrit 31.6 % (39.0-53.0) Mean Corpuscular Volume 86 fL (79-100) Mean Corpuscular Hemoglobin 29 pg (25-35) Mean Corpuscular Hemoglobin Concent 34 g/dL (31-37) Red Cell Distribution Width 15.9 % (11.5-14.5) Platelet Count 205 x10^3/uL (140-400) Neutrophils (%) (Auto) 71 % (31-73) Lymphocytes (%) (Auto) 15 % (24-48) Monocytes (%) (Auto) 9 % (0-9) Eosinophils (%) (Auto) 4 % (0-3) Basophils (%) (Auto) 1 % (0-3) Neutrophils # (Auto) 3.8 x10^3uL (1.8-7.7) Lymphocytes # (Auto) 0.8 x10^3/uL (1.0-4.8) Monocytes # (Auto) 0.5 x10^3/uL (0.0-1.1) Eosinophils # (Auto) 0.2 x10^3/uL (0.0-0.7) Basophils # (Auto) 0.0 x10^3/uL (0.0-0.2) Sodium Level 140 mmol/L (136-145) Potassium Level 3.7 mmol/L (3.5-5.1) Chloride Level 106 mmol/L (98-107) Carbon Dioxide Level 26 mmol/L (21-32) Anion Gap 8 (6-14) Blood Urea Nitrogen 11 mg/dL (8-26) Creatinine 1.0 mg/dL (0.7-1.3) Estimated GFR (Cockcroft-Gault) 78.5 Glucose Level 157 mg/dL (70-99) Calcium Level 8.9 mg/dL (8.5-10.1) Test 06/15/18 16:59 Glucose (Fingerstick) 121 mg/dL (70-99) Medications Current Medications Fentanyl Citrate (Fentanyl 2ml Vial) 50 mcg 1X ONCE IV Last administered on 06/11/18at 22:46; Start 06/11/18 at 22:45; Stop 06/11/18 at 22:46; Status DC Ondansetron HCl (Zofran) 4 mg 1X ONCE IV Last administered on 06/11/18at 22:46; Start 06/11/18 at 22:45; Stop 06/11/18 at 22:46; Status DC Sodium Chloride 1,000 ml @ 1,000 mls/hr 1X ONCE IV Last administered on 06/11/18at 22:47; Start 06/11/18 at 22:45; Stop 06/11/18 at 23:44; Status DC Iohexol (Omnipaque 300 Mg/ml) 75 ml 1X ONCE IV Last administered on 06/11/18at 23:15; Start 06/11/18 at 23:15; Stop 06/11/18 at 23:16; Status DC Info (CONTRAST GIVEN -- Rx MONITORING) 1 each PRN DAILY PRN MC SEE COMMENTS; Start 06/11/18 at 23:15; Stop 06/13/18 at 23:14; Status DC Piperacillin Sod/ Tazobactam Sod (Zosyn Per Pharmacy) 1 each PRN DAILY PRN MC SEE COMMENTS; Start 06/12/18 at 02:30 Hydromorphone HCl (Dilaudid) 1 mg PRN Q4HRS PRN IV MODERATE PAIN Last administered on 06/15/18at 18:31; Start 06/12/18 at 02:00 Ondansetron HCl (Zofran) 4 mg PRN Q8HRS PRN IV NAUSEA/VOMITING; Start 06/12/18 at 02:00; Stop 06/13/18 at 01:59; Status DC Sodium Chloride 1,000 ml @ 100 mls/hr Q10H IV Last administered on 06/13/18at 01:01; Start 06/12/18 at 01:53; Stop 06/13/18 at 01:52; Status DC Piperacillin Sod/ Tazobactam Sod 4.5 gm/Sodium Chloride 100 ml @ 200 mls/hr Q6HRS IV Last administered on 06/15/18 17:18; Start 06/12/18 at 02:30 Tamsulosin HCl (Flomax) 0.4 mg DAILY PO Last administered on 06/15/18 10:48; Start 06/12/18 at 10:00 Pantoprazole Sodium (PROTONIX VIAL for IV PUSH) 40 mg DAILYAC IVP Last administered on 06/15/18 05:49; Start 06/12/18 at 10:00 Metoprolol Tartrate (Lopressor Vial) 2.5 mg BID IVP Last administered on 06/14/18 21:34; Start 06/12/18 at 21:00; Stop 06/15/18 at 11:51; Status DC Fentanyl Citrate (Fentanyl 2ml Vial) 100 mcg PRN Q4HRS PRN IV SEVERE PAIN Last administered on 06/15/18 12:16; Start 06/12/18 at 09:45 Ketorolac Tromethamine (Toradol 15mg Vial) 15 mg 1X ONCE IV Last administered on 06/12/18 11:16; Start 06/12/18 at 09:45; Stop 06/12/18 at 09:46; Status DC Saliva Substitute (Biotene Moisturizing Mouth) 2 spray PRN Q15MIN PRN PO DRY MOUTH Last administered on 06/13/18 11:52; Start 06/12/18 at 09:45 Insulin Human Lispro (HumaLOG) 0-7 UNITS TIDWMEALS SQ ; Start 06/12/18 at 12:00 Dextrose (Dextrose 50%-Water Syringe) 12.5 gm PRN Q15MIN PRN IV SEE COMMENTS; Start 06/12/18 at 10:00 Micafungin Sodium 100 mg/Dextrose 100 ml @ 100 mls/hr Q24H IV Last administered on 06/15/18 12:10; Start 06/12/18 at 12:00 Vancomycin HCl (Vanco Per Pharmacy) 1 each PRN DAILY PRN MC SEE COMMENTS Last administered on 06/15/18 14:48; Start 06/12/18 at 10:45 Vancomycin HCl 2 gm/Sodium Chloride 500 ml @ 250 mls/hr 1X ONCE IV Last administered on 06/12/18at 14:47; Start 06/12/18 at 11:30; Stop 06/12/18 at 13:29; Status DC Vancomycin HCl 1.75 gm/Sodium Chloride 500 ml @ 250 mls/hr Q12H IV Last administered on 06/15/18at 14:52; Start 06/13/18 at 03:00 Vancomycin HCl (Vancomycin Trough Level) 1 each 1X ONCE MC Last administered on 06/14/18at 02:30; Start 06/14/18 at 02:30; Stop 06/14/18 at 02:31; Status DC Sodium Chloride 1,000 ml @ 1,000 mls/hr 1X ONCE IV Last administered on 06/13/18at 10:35; Start 06/13/18 at 10:30; Stop 06/13/18 at 11:29; Status DC Amino Acids/ Glycerin/ Electrolytes 1,000 ml @ 80 mls/hr [id number] IV Last administered on 06/14/18at 15:47; Start 06/13/18 at 11:00 Sodium Monofluorophosphate (Fleet Adult) 133 ml 1X ONCE WI ; Start 06/13/18 at 11:00; Stop 06/13/18 at 11:00; Status DC Insulin Glargine (Lantus) 8 units DAILY SQ ; Start 06/13/18 at 12:30 Sodium Chloride 1,000 ml @ 1,000 mls/hr 1X ONCE IV Last administered on 06/14/18at 10:10; Start 06/14/18 at 09:15; Stop 06/14/18 at 10:14; Status DC Carvedilol (Coreg) 37.5 mg BIDWMEALS PO Last administered on 06/15/18at 16:19; Start 06/15/18 at 17:00 Lactobacillus Rhamnosus (Culturelle) 1 cap BID PO ; Start 06/15/18 at 21:00 Active Scripts Active Reported [bariatric vitamins] Citracal + D Er Tablet (Calcium Carb & Cit/Vitamin D3) 1 Each Tablet.er 1 Each PO DAILY Acidophilus (Lactobacillus Acidophilus) 100 Mg Capsule 100 Mg PO DAILY Flomax (Tamsulosin Hcl) 0.4 Mg Cap.er.24h 0.4 Mg PO DAILY Fenofibrate (Fenofibrate Nanocrystallized) 145 Mg Tablet 1 Tab PO DAILY [losartan] Coreg (Carvedilol) 25 Mg Tablet 37.5 Mg PO BIDWMEALS Protonix (Pantoprazole Sodium) 20 Mg Tablet. 1 Tab PO DAILY Vitals/I & O Vital Sign - Last 24 Hours 06/14/18 06/14/18 06/14/18 06/14/18 20:00 21:34 21:35 23:15 Temp 98.8 98.8 Pulse 51 55 Resp 18 16 B/P (MAP) 150/78 145/74 (97) Pulse Ox 96 O2 Delivery Room Air Room Air Room Air 06/15/18 06/15/18 06/15/18 06/15/18 01:34 03:15 07:15 08:00 Temp 98.2 97.7 98.2 97.7 Pulse 45 56 Resp 20 18 18 B/P (MAP) 132/75 (94) 151/90 (110) Pulse Ox 96 96 O2 Delivery BiPAP/CPAP BiPAP/CPAP BiPAP/CPAP Room Air 06/15/18 06/15/18 06/15/18 06/15/18 11:13 12:16 13:44 15:00 Temp 97.5 98.2 97.5 98.2 Pulse 47 43 Resp 14 17 18 B/P (MAP) 138/71 (93) 171/93 (119) Pulse Ox 94 94 96 O2 Delivery BiPAP/CPAP Room Air Room Air Room Air 06/15/18 06/15/18 16:19 18:31 Pulse 43 B/P (MAP) 171/93 Pulse Ox 96 O2 Delivery Room Air Intake and Output 06/14/18 06/14/18 06/15/18 15:00 23:00 07:00 Intake Total 600 ml 1200 ml Output Total 500 ml 200 ml Balance 100 ml 1000 ml AYDIN AVILEZ MD Jun 15, 2018 19:53
[2018-06-15] MEDS: LACTOBACILLUS RHAMNOSUS GG 1 CAPSULE. PO SCH (20:40)
[2018-06-15 23:22] VITALS: BP 159/85
[2018-06-16] MEDS: AMINO AC 3%/ELECTROLYTE/GLYCER 1,000 ML IV SCH ×2 (01:30→14:00)
[2018-06-16] MEDS: VANCOMYCIN 1.75 GM in IV NORMAL SALINE 500ML BAG 500 ML IV SCH ×2 (03:00→20:30)
[2018-06-16 03:39] VITALS: BP 151/83
[2018-06-16] MEDS ORDERED: CONTRAST GIVEN. MC PRN (06:15)
[2018-06-16] MEDS ORDERED: IOHEXOL 300 MG/ML 100ML VIAL. IV ONE (06:30)
[2018-06-16 07:00] VITALS: BP 165/81
[2018-06-16] MEDS: PIPERACILLIN/TAZOBACTAM 4.5 GM in IV NORMAL SALINE 100ML 100 ML IV SCH ×3 (07:30→18:00)
[2018-06-16] MEDS: CARVEDILOL 12.5 MG TABLET. PO SCH ×2 (08:00→16:33)
[2018-06-16] MEDS: INSULIN LISPRO 300 UNITS/3 ML INSULN.PEN. SQ SCH ×3 (08:00→16:33)
[2018-06-16] MEDS: INSULIN GLARGINE 300 UNITS/3 ML INSULN.PEN. SQ SCH (09:00)
[2018-06-16] MEDS: LACTOBACILLUS RHAMNOSUS GG 1 CAPSULE. PO SCH ×2 (09:48→20:44)
[2018-06-16] MEDS: TAMSULOSIN 0.4 MG CAP.ER.24H. PO SCH (09:49)
[2018-06-16] MEDS: PANTOPRAZOLE IV PUSH 40 MG VIAL. IVP SCH (10:00)
--- NOTE | 2018-06-16 10:07 | RAD ---
CT ABD PELV W/ IV CONTRST ONLY Indication: Diverticulitis Technique: Postcontrast CT imaging was performed of the abdomen and pelvis, multiplanar reconstruction images submitted. No oral contrast was given. One or more of the following individualized dose reduction techniques were utilized for this examination: 1. Automated exposure control 2. Adjustment of the mA and/or kV according to patient size 3. Use of iterative reconstruction technique. Comparison: June 11, 2018 Findings: There are now very small pleural effusions bilaterally. There is increased mild free fluid in the abdomen extending along the paracolic gutters bilaterally and about the liver and spleen. Previously seen abscess in the left pelvis is larger, internal gas and fluid as seen on images 63 through 70 located posterior to the proximal to mid sigmoid colon. Pocket of fluid and gas measures larger about 4.9 cm transverse by 4.3 cm AP by 3.8 cm cc, previously about 3.7 cm transverse by 2.4 cm AP by 3.8 cm CC. Adjacent hazy and strandy inflammatory type change is also greater. There is adjacent wall thickening of the sigmoid colon at which there are diverticula present. There is no significant free air on this exam. Bowel is not significantly dilated. Appendix is again dilated to about 1.2 cm with somewhat thickened [place] although there is internal gas present. There are 3 right renal calculi with the largest about 0.7 cm and also 0.2 cm left renal calculus. There is again exophytic lesion posteriorly of the mid left kidney about 2.5 cm transverse by 1.9 cm AP by 2.1 cm CC, density measurements similar to adjacent renal parenchyma concerning for an enhancing lesion. Both kidneys enhance, no hydronephrosis. There again has been cholecystectomy. No new focal abnormality is identified of the liver, spleen, pancreas. There are again postsurgical changes of stomach. There is again left adrenal nodule about 1.2 cm. There is multilevel lumbar facet degenerative change, negligible anterior spondylolisthesis at L4-5. There is degenerative disc disease greatest at L4-5. IMPRESSION: 1. Previously seen left pelvic abscess is larger, adjacent inflammatory-type change also greater. There is now mild free fluid in the abdomen bilaterally. There are now small pleural effusions bilaterally. However there is no significant free air on this exam. 2. There is again exophytic lesion of the left kidney concerning for renal cell carcinoma until proven otherwise. 3. There are again bilateral renal calculi right greater than left. 4. There is again nonspecific left adrenal nodule. Findings discussed with patient's nurse Pedrito at 06/16/2018 10:03 AM. Electronically signed by: Alejandro Bond MD (06/16/2018 10:04 AM) [facility]
[2018-06-16 11:00] VITALS: BP 167/82
--- NOTE | 2018-06-16 11:31 | PDOC ---
PROGRESS NOTES Chief Complaint Chief Complaint peritonitis perforated diverticulitis History of Present Illness History of Present Illness Patient was resting comfortably in bed today. He has no complaints. Repeat CT planed for today. Vitals Vitals Vital Signs Date Time Temp Pulse Resp B/P (MAP) Pulse Ox O2 Delivery O2 Flow Rate FiO2 06/16/18 08:00 42 165/81 06/16/18 07:00 98.9 18 95 Room Air 98.9 Physical Exam General: Alert, Oriented X3, Cooperative, No acute distress Heart: Regular rate, Normal S1, Normal S2, No murmurs Lungs: Clear (No wheezes, rales, or rhonchi) Abdomen: Soft, Other (mild RLQ TTP) Extremities: No edema, Normal pulses, No tenderness/swelling Skin: No rashes, No breakdown, No significant lesion Labs LABS Laboratory Tests Test 06/15/18 11:40 06/15/18 11:56 06/15/18 16:59 06/15/18 21:17 White Blood Count 5.3 x10^3/uL (4.0-11.0) Red Blood Count 3.67 x10^6/uL (4.30-5.70) Hemoglobin 10.7 g/dL (13.0-17.5) Hematocrit 31.6 % (39.0-53.0) Mean Corpuscular Volume 86 fL (79-100) Mean Corpuscular Hemoglobin 29 pg (25-35) Mean Corpuscular Hemoglobin Concent 34 g/dL (31-37) Red Cell Distribution Width 15.9 % (11.5-14.5) Platelet Count 205 x10^3/uL (140-400) Neutrophils (%) (Auto) 71 % (31-73) Lymphocytes (%) (Auto) 15 % (24-48) Monocytes (%) (Auto) 9 % (0-9) Eosinophils (%) (Auto) 4 % (0-3) Basophils (%) (Auto) 1 % (0-3) Neutrophils # (Auto) 3.8 x10^3uL (1.8-7.7) Lymphocytes # (Auto) 0.8 x10^3/uL (1.0-4.8) Monocytes # (Auto) 0.5 x10^3/uL (0.0-1.1) Eosinophils # (Auto) 0.2 x10^3/uL (0.0-0.7) Basophils # (Auto) 0.0 x10^3/uL (0.0-0.2) Sodium Level 140 mmol/L (136-145) Potassium Level 3.7 mmol/L (3.5-5.1) Chloride Level 106 mmol/L (98-107) Carbon Dioxide Level 26 mmol/L (21-32) Anion Gap 8 (6-14) Blood Urea Nitrogen 11 mg/dL (8-26) Creatinine 1.0 mg/dL (0.7-1.3) Estimated GFR (Cockcroft-Gault) 78.5 Glucose Level 157 mg/dL (70-99) Calcium Level 8.9 mg/dL (8.5-10.1) Glucose (Fingerstick) 144 mg/dL (70-99) 121 mg/dL (70-99) 136 mg/dL (70-99) Test 06/16/18 09:25 Glucose (Fingerstick) 129 mg/dL (70-99) Review of Systems Review of Systems Patient denies fevers, chills, N/V, CP, SOB, diarrhea. Assessment and Plan Assessmemt and Plan Problems Medical Problems: (1) Diverticulitis of colon with perforation Status: Acute Assessment: Peritonitis perforated diverticulitis Recent gastric bypass 6 mos ago with 60 lbs weight loss Obesity, BMI 40 DM HTN CAD Hx of [place] HLD OA Plan: Repeat CT today- showed worsening abscess and inflammation Supportive care for now- await general surgery input Held Coreg this am due to HR in the 40s Zosyn, Vancomycin, Micafungin Cultures pending EF 55-60% Hgb A1c 5.9 General surgery consult ID consult Cardio consult F/u labs PT/OT Home meds DVT prophylaxis Comment Review of Relevant I have reviewed the following items thania (where applicable) has been applied. Labs Laboratory Tests Test 06/14/18 11:48 06/14/18 17:11 06/14/18 21:04 06/15/18 07:13 Glucose (Fingerstick) 149 mg/dL (70-99) 144 mg/dL (70-99) 131 mg/dL (70-99) 126 mg/dL (70-99) Test 06/15/18 11:40 06/15/18 11:56 06/15/18 16:59 06/15/18 21:17 White Blood Count 5.3 x10^3/uL (4.0-11.0) Red Blood Count 3.67 x10^6/uL (4.30-5.70) Hemoglobin 10.7 g/dL (13.0-17.5) Hematocrit 31.6 % (39.0-53.0) Mean Corpuscular Volume 86 fL (79-100) Mean Corpuscular Hemoglobin 29 pg (25-35) Mean Corpuscular Hemoglobin Concent 34 g/dL (31-37) Red Cell Distribution Width 15.9 % (11.5-14.5) Platelet Count 205 x10^3/uL (140-400) Neutrophils (%) (Auto) 71 % (31-73) Lymphocytes (%) (Auto) 15 % (24-48) Monocytes (%) (Auto) 9 % (0-9) Eosinophils (%) (Auto) 4 % (0-3) Basophils (%) (Auto) 1 % (0-3) Neutrophils # (Auto) 3.8 x10^3uL (1.8-7.7) Lymphocytes # (Auto) 0.8 x10^3/uL (1.0-4.8) Monocytes # (Auto) 0.5 x10^3/uL (0.0-1.1) Eosinophils # (Auto) 0.2 x10^3/uL (0.0-0.7) Basophils # (Auto) 0.0 x10^3/uL (0.0-0.2) Sodium Level 140 mmol/L (136-145) Potassium Level 3.7 mmol/L (3.5-5.1) Chloride Level 106 mmol/L (98-107) Carbon Dioxide Level 26 mmol/L (21-32) Anion Gap 8 (6-14) Blood Urea Nitrogen 11 mg/dL (8-26) Creatinine 1.0 mg/dL (0.7-1.3) Estimated GFR (Cockcroft-Gault) 78.5 Glucose Level 157 mg/dL (70-99) Calcium Level 8.9 mg/dL (8.5-10.1) Glucose (Fingerstick) 144 mg/dL (70-99) 121 mg/dL (70-99) 136 mg/dL (70-99) Test 06/16/18 09:25 Glucose (Fingerstick) 129 mg/dL (70-99) Laboratory Tests Test 06/15/18 11:40 06/15/18 11:56 06/15/18 16:59 06/15/18 21:17 White Blood Count 5.3 x10^3/uL (4.0-11.0) Red Blood Count 3.67 x10^6/uL (4.30-5.70) Hemoglobin 10.7 g/dL (13.0-17.5) Hematocrit 31.6 % (39.0-53.0) Mean Corpuscular Volume 86 fL (79-100) Mean Corpuscular Hemoglobin 29 pg (25-35) Mean Corpuscular Hemoglobin Concent 34 g/dL (31-37) Red Cell Distribution Width 15.9 % (11.5-14.5) Platelet Count 205 x10^3/uL (140-400) Neutrophils (%) (Auto) 71 % (31-73) Lymphocytes (%) (Auto) 15 % (24-48) Monocytes (%) (Auto) 9 % (0-9) Eosinophils (%) (Auto) 4 % (0-3) Basophils (%) (Auto) 1 % (0-3) Neutrophils # (Auto) 3.8 x10^3uL (1.8-7.7) Lymphocytes # (Auto) 0.8 x10^3/uL (1.0-4.8) Monocytes # (Auto) 0.5 x10^3/uL (0.0-1.1) Eosinophils # (Auto) 0.2 x10^3/uL (0.0-0.7) Basophils # (Auto) 0.0 x10^3/uL (0.0-0.2) Sodium Level 140 mmol/L (136-145) Potassium Level 3.7 mmol/L (3.5-5.1) Chloride Level 106 mmol/L (98-107) Carbon Dioxide Level 26 mmol/L (21-32) Anion Gap 8 (6-14) Blood Urea Nitrogen 11 mg/dL (8-26) Creatinine 1.0 mg/dL (0.7-1.3) Estimated GFR (Cockcroft-Gault) 78.5 Glucose Level 157 mg/dL (70-99) Calcium Level 8.9 mg/dL (8.5-10.1) Glucose (Fingerstick) 144 mg/dL (70-99) 121 mg/dL (70-99) 136 mg/dL (70-99) Test 06/16/18 09:25 Glucose (Fingerstick) 129 mg/dL (70-99) Medications Current Medications Fentanyl Citrate (Fentanyl 2ml Vial) 50 mcg 1X ONCE IV Last administered on 06/11/18at 22:46; Start 06/11/18 at 22:45; Stop 06/11/18 at 22:46; Status DC Ondansetron HCl (Zofran) 4 mg 1X ONCE IV Last administered on 06/11/18at 22:46; Start 06/11/18 at 22:45; Stop 06/11/18 at 22:46; Status DC Sodium Chloride 1,000 ml @ 1,000 mls/hr 1X ONCE IV Last administered on 06/11/18at 22:47; Start 06/11/18 at 22:45; Stop 06/11/18 at 23:44; Status DC Iohexol (Omnipaque 300 Mg/ml) 75 ml 1X ONCE IV Last administered on 06/11/18at 23:15; Start 06/11/18 at 23:15; Stop 06/11/18 at 23:16; Status DC Info (CONTRAST GIVEN -- Rx MONITORING) 1 each PRN DAILY PRN MC SEE COMMENTS; Start 06/11/18 at 23:15; Stop 06/13/18 at 23:14; Status DC Piperacillin Sod/ Tazobactam Sod (Zosyn Per Pharmacy) 1 each PRN DAILY PRN MC SEE COMMENTS; Start 06/12/18 at 02:30 Hydromorphone HCl (Dilaudid) 1 mg PRN Q4HRS PRN IV MODERATE PAIN Last administered on 06/15/18at 23:18; Start 06/12/18 at 02:00 Ondansetron HCl (Zofran) 4 mg PRN Q8HRS PRN IV NAUSEA/VOMITING; Start 06/12/18 at 02:00; Stop 06/13/18 at 01:59; Status DC Sodium Chloride 1,000 ml @ 100 mls/hr Q10H IV Last administered on 06/13/18at 01:01; Start 06/12/18 at 01:53; Stop 06/13/18 at 01:52; Status DC Piperacillin Sod/ Tazobactam Sod 4.5 gm/Sodium Chloride 100 ml @ 200 mls/hr Q6HRS IV Last administered on 06/16/18 07:30; Start 06/12/18 at 02:30 Tamsulosin HCl (Flomax) 0.4 mg DAILY PO Last administered on 06/16/18 09:49; Start 06/12/18 at 10:00 Pantoprazole Sodium (PROTONIX VIAL for IV PUSH) 40 mg DAILYAC IVP Last administered on 06/16/18 10:00; Start 06/12/18 at 10:00 Metoprolol Tartrate (Lopressor Vial) 2.5 mg BID IVP Last administered on 06/14/18 21:34; Start 06/12/18 at 21:00; Stop 06/15/18 at 11:51; Status DC Fentanyl Citrate (Fentanyl 2ml Vial) 100 mcg PRN Q4HRS PRN IV SEVERE PAIN Last administered on 06/15/18 12:16; Start 06/12/18 at 09:45 Ketorolac Tromethamine (Toradol 15mg Vial) 15 mg 1X ONCE IV Last administered on 06/12/18 11:16; Start 06/12/18 at 09:45; Stop 06/12/18 at 09:46; Status DC Saliva Substitute (Biotene Moisturizing Mouth) 2 spray PRN Q15MIN PRN PO DRY MOUTH Last administered on 06/13/18 11:52; Start 06/12/18 at 09:45 Insulin Human Lispro (HumaLOG) 0-7 UNITS TIDWMEALS SQ ; Start 06/12/18 at 12:00 Dextrose (Dextrose 50%-Water Syringe) 12.5 gm PRN Q15MIN PRN IV SEE COMMENTS; Start 06/12/18 at 10:00 Micafungin Sodium 100 mg/Dextrose 100 ml @ 100 mls/hr Q24H IV Last administered on 06/15/18 12:10; Start 06/12/18 at 12:00 Vancomycin HCl (Vanco Per Pharmacy) 1 each PRN DAILY PRN MC SEE COMMENTS Last administered on 06/15/18 14:48; Start 06/12/18 at 10:45 Vancomycin HCl 2 gm/Sodium Chloride 500 ml @ 250 mls/hr 1X ONCE IV Last administered on 06/12/18at 14:47; Start 06/12/18 at 11:30; Stop 06/12/18 at 13:29; Status DC Vancomycin HCl 1.75 gm/Sodium Chloride 500 ml @ 250 mls/hr Q12H IV Last administered on 06/16/18at 03:00; Start 06/13/18 at 03:00 Vancomycin HCl (Vancomycin Trough Level) 1 each 1X ONCE MC Last administered on 06/14/18at 02:30; Start 06/14/18 at 02:30; Stop 06/14/18 at 02:31; Status DC Sodium Chloride 1,000 ml @ 1,000 mls/hr 1X ONCE IV Last administered on 06/13/18at 10:35; Start 06/13/18 at 10:30; Stop 06/13/18 at 11:29; Status DC Amino Acids/ Glycerin/ Electrolytes 1,000 ml @ 80 mls/hr [id number] IV Last administered on 06/14/18at 15:47; Start 06/13/18 at 11:00 Sodium Monofluorophosphate (Fleet Adult) 133 ml 1X ONCE [place] ; Start 06/13/18 at 11:00; Stop 06/13/18 at 11:00; Status DC Insulin Glargine (Lantus) 8 units DAILY SQ ; Start 06/13/18 at 12:30 Sodium Chloride 1,000 ml @ 1,000 mls/hr 1X ONCE IV Last administered on 06/14/18at 10:10; Start 06/14/18 at 09:15; Stop 06/14/18 at 10:14; Status DC Carvedilol (Coreg) 37.5 mg BIDWMEALS PO Last administered on 06/15/18at 16:19; Start 06/15/18 at 17:00 Lactobacillus Rhamnosus (Culturelle) 1 cap BID PO Last administered on 06/16/18at 09:48; Start 06/15/18 at 21:00 Iohexol (Omnipaque 300 Mg/ml) 75 ml 1X ONCE IV Last administered on 06/16/18at 06:20; Start 06/16/18 at 06:30; Stop 06/16/18 at 06:31; Status DC Info (CONTRAST GIVEN -- Rx MONITORING) 1 each PRN DAILY PRN MC SEE COMMENTS; Start 06/16/18 at 06:15; Stop 06/18/18 at 06:14 Active Scripts Active Reported [bariatric vitamins] Citracal + D Er Tablet (Calcium Carb & Cit/Vitamin D3) 1 Each Tablet.er 1 Each PO DAILY Acidophilus (Lactobacillus Acidophilus) 100 Mg Capsule 100 Mg PO DAILY Flomax (Tamsulosin Hcl) 0.4 Mg Cap.er.24h 0.4 Mg PO DAILY Fenofibrate (Fenofibrate Nanocrystallized) 145 Mg Tablet 1 Tab PO DAILY [losartan] Coreg (Carvedilol) 25 Mg Tablet 37.5 Mg PO BIDWMEALS Protonix (Pantoprazole Sodium) 20 Mg Tablet. 1 Tab PO DAILY Vitals/I & O Vital Sign - Last 24 Hours 06/15/18 06/15/18 06/15/18 06/15/18 12:16 13:44 15:00 16:19 Temp 98.2 98.2 Pulse 43 43 Resp 17 18 B/P (MAP) 171/93 (119) 171/93 Pulse Ox 94 96 O2 Delivery Room Air Room Air Room Air 06/15/18 06/15/18 06/15/18 06/15/18 18:31 19:15 20:00 23:18 Temp 98.2 98.2 Pulse 51 Resp 20 18 B/P (MAP) 154/70 (98) Pulse Ox 96 94 O2 Delivery Room Air Room Air Room Air BiPAP/CPAP 06/15/18 06/15/18 06/16/18 06/16/18 23:22 23:48 03:39 07:00 Temp 98.5 97.6 98.9 98.5 97.6 98.9 Pulse 43 46 42 Resp 18 17 20 18 B/P (MAP) 159/85 (109) 151/83 (105) 165/81 (109) Pulse Ox 93 97 95 O2 Delivery BiPAP/CPAP BiPAP/CPAP BiPAP/CPAP Room Air 06/16/18 08:00 Pulse 42 B/P (MAP) 165/81 Intake and Output 06/15/18 06/15/18 06/16/18 14:59 22:59 06:59 Intake Total 280 ml 240 ml Output Total 575 ml Balance -295 ml 240 ml CASTLE,NIAL K III DO Jun 16, 2018 11:31
[2018-06-16] MEDS: VANCOMYCIN PER PHARMACY MC PRN (11:34)
--- NOTE | 2018-06-16 12:10 | PDOC ---
SURGICAL PROGRESS NOTE Subjective Pt actually feeling pretty well, pain between 5-7, princess clears, no n/V, passing loose stools Vital Signs Vital Signs Date Time Temp Pulse Resp B/P (MAP) Pulse Ox O2 Delivery O2 Flow Rate FiO2 06/16/18 11:00 98.3 47 18 167/82 (110) 95 Room Air 98.3 I&O Intake and Output 06/16/18 06:59 Intake Total 520 ml Output Total 575 ml Balance -55 ml Intake Oral 520 ml Output Urine Total 575 ml # Voids 2 General: Alert, Oriented X3, Cooperative, No acute distress Abdomen: Soft, Other (mild TTP LLQ) Labs Laboratory Tests Test 06/14/18 17:11 06/14/18 21:04 06/15/18 07:13 06/15/18 11:40 Glucose (Fingerstick) 144 mg/dL (70-99) 131 mg/dL (70-99) 126 mg/dL (70-99) White Blood Count 5.3 x10^3/uL (4.0-11.0) Red Blood Count 3.67 x10^6/uL (4.30-5.70) Hemoglobin 10.7 g/dL (13.0-17.5) Hematocrit 31.6 % (39.0-53.0) Mean Corpuscular Volume 86 fL (79-100) Mean Corpuscular Hemoglobin 29 pg (25-35) Mean Corpuscular Hemoglobin Concent 34 g/dL (31-37) Red Cell Distribution Width 15.9 % (11.5-14.5) Platelet Count 205 x10^3/uL (140-400) Neutrophils (%) (Auto) 71 % (31-73) Lymphocytes (%) (Auto) 15 % (24-48) Monocytes (%) (Auto) 9 % (0-9) Eosinophils (%) (Auto) 4 % (0-3) Basophils (%) (Auto) 1 % (0-3) Neutrophils # (Auto) 3.8 x10^3uL (1.8-7.7) Lymphocytes # (Auto) 0.8 x10^3/uL (1.0-4.8) Monocytes # (Auto) 0.5 x10^3/uL (0.0-1.1) Eosinophils # (Auto) 0.2 x10^3/uL (0.0-0.7) Basophils # (Auto) 0.0 x10^3/uL (0.0-0.2) Sodium Level 140 mmol/L (136-145) Potassium Level 3.7 mmol/L (3.5-5.1) Chloride Level 106 mmol/L (98-107) Carbon Dioxide Level 26 mmol/L (21-32) Anion Gap 8 (6-14) Blood Urea Nitrogen 11 mg/dL (8-26) Creatinine 1.0 mg/dL (0.7-1.3) Estimated GFR (Cockcroft-Gault) 78.5 Glucose Level 157 mg/dL (70-99) Calcium Level 8.9 mg/dL (8.5-10.1) Test 06/15/18 11:56 06/15/18 16:59 06/15/18 21:17 06/16/18 09:25 Glucose (Fingerstick) 144 mg/dL (70-99) 121 mg/dL (70-99) 136 mg/dL (70-99) 129 mg/dL (70-99) Test 06/16/18 11:34 Glucose (Fingerstick) 140 mg/dL (70-99) Laboratory Tests Test 06/15/18 16:59 06/15/18 21:17 06/16/18 09:25 06/16/18 11:34 Glucose (Fingerstick) 121 mg/dL (70-99) 136 mg/dL (70-99) 129 mg/dL (70-99) 140 mg/dL (70-99) I have reviewed the following CT worsening abscess and inflammation Problem List Problems Medical Problems: (1) Diverticulitis of colon with perforation Status: Acute Assessment/Plan will ask urology to evaluate kidney mass cont abx. start TPN given prolonged fasting will ask IR to evaluate for drainage, non urgent TRISTON VIERA MD Jun 16, 2018 12:10
--- NOTE | 2018-06-16 13:07 | PDOC ---
Infectious Disease Note Subjective Subjective Rating abdominal pain a 5, tolerable + diarrhea Denies N/V/F/C ROS ROS per HPI Vital Sign Vital Signs Vital Signs Date Time Temp Pulse Resp B/P (MAP) Pulse Ox O2 Delivery O2 Flow Rate FiO2 06/16/18 11:00 98.3 47 18 167/82 (110) 95 Room Air 98.3 Physical Exam PHYSICAL EXAM GENERAL: Sitting on the side of the bed, alert, relaxed appearance HEENT: Pupils are equal and reactive. normal conjunctivae. Oral cavity, pharynx clear. NECK: Supple, no JVD. LUNGS: Decreased in the bases. HEART: S1, S2. ABDOMEN: Obese, soft, mildly tender. EXTREMITIES: Without clubbing or cyanosis. No gross edema. SKIN: Warm to touch without signs of rash. NEUROLOGIC: Alert and oriented Labs Lab Laboratory Tests Test 06/15/18 16:59 06/15/18 21:17 06/16/18 09:25 06/16/18 11:34 Glucose (Fingerstick) 121 mg/dL (70-99) 136 mg/dL (70-99) 129 mg/dL (70-99) 140 mg/dL (70-99) IMPRESSION: 1. Previously seen left pelvic abscess is larger, adjacent inflammatory-type change also greater. There is now mild free fluid in the abdomen bilaterally. There are now small pleural effusions bilaterally. However there is no significant free air on this exam. 2. There is again exophytic lesion of the left kidney concerning for renal cell carcinoma until proven otherwise. 3. There are again bilateral renal calculi right greater than left. 4. There is again nonspecific left adrenal nodule. Objective Assessment Perforated diverticulitis w/worsening left pelvic abscess on today's CT H/o staph infection recent doxycycline in Mar around his Gastric bypass ? left max sinusitis on CT Sulfa allergy DM Exophytic lesion of the left kidney concerning for renal cell carcinoma Plan Plan of Care Cont vanc, Zosyn and Micafungin IR consulted for drainage, cultures requested Urology consulted Monitor labs/temp Gen surgery following Attending Co-Sign The patient was seen and interviewed as well as examined at the bedside. The chart was reviewed. The case was discussed. Agree with the plan of care. CHARIS BOSS APRN Jun 16, 2018 13:07 CHATO LORENZ MD Jun 16, 2018 14:27
[2018-06-16] MEDS: MICAFUNGIN 100 MG in IV DEXTROSE 5% 100ML 100 ML IV SCH (13:43)
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
[2018-06-16 15:00] VITALS: BP 170/85
[2018-06-16] MEDS: amLODIPine BESYLATE 10 MG TABLET PO SCH (16:28)
[2018-06-16] MEDS: HYDROmorphone 2 MG/ML VIAL IV PRN ×2 (16:31→20:47)
[2018-06-16 19:00] VITALS: BP 162/88
--- NOTE | 2018-06-16 19:08 | RAD ---
CHEST AP ONLY History: PICC LINE Comparison: June 11, 2018 Findings: Single view of the chest is submitted. There is now a right upper extremity PICC, tip near the cavoatrial junction. Pericardial cardiac silhouette is borderline enlarged although unchanged. There is no pneumothorax or pleural fluid. There is no new lobar consolidation although some mild interstitial opacity bilaterally unchanged. Impression: 1. There is now a right upper extremity PICC with tip near the cavoatrial junction. Electronically signed by: Alejandro Bond MD (06/16/2018 7:06 PM) [facility]
[2018-06-16 23:00] VITALS: BP 170/87
[2018-06-17] VITALS (7 sets, daily range): BP systolic 138–165; BP diastolic 78–90
[2018-06-17] MEDS: PIPERACILLIN/TAZOBACTAM 4.5 GM in IV NORMAL SALINE 100ML 100 ML IV SCH ×4 (00:19→18:56)
[2018-06-17] MEDS: HYDROmorphone 2 MG/ML VIAL IV PRN ×4 (00:51→19:24)
[2018-06-17] MEDS: AMINO AC 3%/ELECTROLYTE/GLYCER 1,000 ML IV SCH ×2 (02:35→15:12)
[2018-06-17] MEDS: CARVEDILOL 12.5 MG TABLET. PO SCH ×2 (08:00→17:00)
[2018-06-17] MEDS: INSULIN LISPRO 300 UNITS/3 ML INSULN.PEN. SQ SCH ×3 (08:00→17:00)
[2018-06-17] MEDS: LACTOBACILLUS RHAMNOSUS GG 1 CAPSULE. PO SCH ×2 (08:49→21:29)
[2018-06-17] MEDS: PANTOPRAZOLE 40 MG TABLET.DR. PO SCH (08:51)
[2018-06-17] MEDS: TAMSULOSIN 0.4 MG CAP.ER.24H. PO SCH (08:51)
[2018-06-17] MEDS: INSULIN GLARGINE 300 UNITS/3 ML INSULN.PEN. SQ SCH (09:00)
[2018-06-17] MEDS: VANCOMYCIN 1.75 GM in IV NORMAL SALINE 500ML BAG 500 ML IV SCH ×2 (09:01→20:12)
[2018-06-17] MEDS: amLODIPine BESYLATE 10 MG TABLET PO SCH (09:03)
[2018-06-17] MEDS ORDERED: ONDANSETRON PF 4 MG/2 ML VIAL. IV PRN (10:00)
--- NOTE | 2018-06-17 10:29 | PDOC ---
Infectious Disease Note Subjective Subjective "Rough night" C/o sinus headache, requesting Tylenol and pseudophed for relief Also had some nausea and dry heaves Denies abdominal pain No F/C/S ROS ROS per HPI Vital Sign Vital Signs Vital Signs Date Time Temp Pulse Resp B/P (MAP) Pulse Ox O2 Delivery O2 Flow Rate FiO2 06/17/18 09:03 54 165/88 06/17/18 08:25 98.4 18 93 Room Air 98.4 Physical Exam PHYSICAL EXAM GENERAL: Sitting upright in bed, alert, NAD HEENT: Oral cavity, pharynx clear. NECK: Supple, no JVD. LUNGS: Decreased in the bases. HEART: S1, S2. ABDOMEN: Obese, soft, nontender EXTREMITIES: Without clubbing or cyanosis. No gross edema. SKIN: Warm to touch without signs of rash. NEUROLOGIC: Alert and oriented x 3 RUE-PICC (06/16) clean Labs Lab Laboratory Tests Test 06/16/18 11:34 06/16/18 21:22 Glucose (Fingerstick) 140 mg/dL (70-99) 123 mg/dL (70-99) Objective Assessment Perforated diverticulitis w/worsening left pelvic abscess on CT 06/16 H/o staph infection recent doxycycline in [place] around his Gastric bypass ? left max sinusitis on CT Sulfa allergy DM Exophytic lesion of the left kidney concerning for renal cell carcinoma. Urology following Plan Plan of Care Cont vanc, Zosyn and Micafungin Await IR consult for drainage, cultures requested Monitor labs/temp Gen surgery following Attending Co-Sign The patient was seen and interviewed as well as examined at the bedside. The chart was reviewed. The case was discussed. Agree with the plan of care. CHARIS BOSS APRN Jun 17, 2018 10:29 CHATO LORENZ MD Jun 17, 2018 13:30
[2018-06-17] MEDS: MICAFUNGIN 100 MG in IV DEXTROSE 5% 100ML 100 ML IV SCH (11:34)
[2018-06-17] MEDS: CETIRIZINE HCL 10 MG TABLET. PO SCH (11:38)
[2018-06-17] MEDS: ACETAMINOPHEN 325 MG TABLET. PO PRN ×2 (11:38→21:29)
--- NOTE | 2018-06-17 12:27 | PDOC ---
PROGRESS NOTES Chief Complaint Chief Complaint peritonitis perforated diverticulitis Incidental finding of a left one-inch renal mass awaiting eventual cryotherapy History of Present Illness History of Present Illness Patient was seen and examined Discussed the case at length with him Reviewed the films Talk to his nurse Vitals Vitals Vital Signs Date Time Temp Pulse Resp B/P (MAP) Pulse Ox O2 Delivery O2 Flow Rate FiO2 06/17/18 11:00 98.2 73 18 151/89 (109) 96 Room Air 98.2 Physical Exam Physical Exam GENERAL: Sitting upright in bed, alert, NAD HEENT: Oral cavity, pharynx clear. NECK: Supple, no JVD. LUNGS: Decreased in the bases. HEART: S1, S2. ABDOMEN: Obese, soft, nontender EXTREMITIES: Without clubbing or cyanosis. No gross edema. SKIN: Warm to touch without signs of rash. NEUROLOGIC: Alert and oriented x 3 RUE-PICC (06/16) clean General: Alert, Oriented X3, Cooperative, No acute distress Heart: Regular rate, Normal S1, Normal S2, No murmurs Lungs: Clear (No wheezes, rales, or rhonchi) Abdomen: Soft, Other (mild TTP LLQ) Extremities: No edema, Normal pulses, No tenderness/swelling Skin: No rashes, No breakdown, No significant lesion Labs LABS Laboratory Tests Test 06/16/18 21:22 06/17/18 07:19 06/17/18 11:43 Glucose (Fingerstick) 123 mg/dL (70-99) 140 mg/dL (70-99) 157 mg/dL (70-99) Review of Systems Review of Systems [place] of weakness and pain Assessment and Plan Assessmemt and Plan Problems Medical Problems: (1) Diverticulitis of colon with perforation Status: Acute Assessment: Peritonitis perforated diverticulitis Recent gastric bypass 6 mos ago with 60 lbs weight loss Obesity, BMI 40 DM HTN CAD Hx of [place] HLD OA Plan: Supportive care for now- await further general surgery input Held Coreg due to HR in the 40s Zosyn, Vancomycin, Micafungin Cultures pending EF 55-60% Hgb A1c 5.9 General surgery consult ID consult Cardio consult F/u labs PT/OT Home meds DVT prophylaxis Urology consult is done and they plan on a ventral cryotherapy of the left kidney mass Comment Review of Relevant I have reviewed the following items thania (where applicable) has been applied. Labs Laboratory Tests Test 06/15/18 16:59 06/15/18 21:17 06/16/18 09:25 06/16/18 11:34 Glucose (Fingerstick) 121 mg/dL (70-99) 136 mg/dL (70-99) 129 mg/dL (70-99) 140 mg/dL (70-99) Test 06/16/18 21:22 06/17/18 07:19 06/17/18 11:43 Glucose (Fingerstick) 123 mg/dL (70-99) 140 mg/dL (70-99) 157 mg/dL (70-99) Laboratory Tests Test 06/16/18 21:22 06/17/18 07:19 06/17/18 11:43 Glucose (Fingerstick) 123 mg/dL (70-99) 140 mg/dL (70-99) 157 mg/dL (70-99) Medications Current Medications Fentanyl Citrate (Fentanyl 2ml Vial) 50 mcg 1X ONCE IV Last administered on 06/11/18at 22:46; Start 06/11/18 at 22:45; Stop 06/11/18 at 22:46; Status DC Ondansetron HCl (Zofran) 4 mg 1X ONCE IV Last administered on 06/11/18at 22:46; Start 06/11/18 at 22:45; Stop 06/11/18 at 22:46; Status DC Sodium Chloride 1,000 ml @ 1,000 mls/hr 1X ONCE IV Last administered on 06/11/18at 22:47; Start 06/11/18 at 22:45; Stop 06/11/18 at 23:44; Status DC Iohexol (Omnipaque 300 Mg/ml) 75 ml 1X ONCE IV Last administered on 06/11/18at 23:15; Start 06/11/18 at 23:15; Stop 06/11/18 at 23:16; Status DC Info (CONTRAST GIVEN -- Rx MONITORING) 1 each PRN DAILY PRN MC SEE COMMENTS; Start 06/11/18 at 23:15; Stop 06/13/18 at 23:14; Status DC Piperacillin Sod/ Tazobactam Sod (Zosyn Per Pharmacy) 1 each PRN DAILY PRN MC SEE COMMENTS; Start 06/12/18 at 02:30 Hydromorphone HCl (Dilaudid) 1 mg PRN Q4HRS PRN IV MODERATE PAIN Last administered on 06/17/18 06:44; Start 06/12/18 at 02:00 Ondansetron HCl (Zofran) 4 mg PRN Q8HRS PRN IV NAUSEA/VOMITING; Start 06/12/18 at 02:00; Stop 06/13/18 at 01:59; Status DC Sodium Chloride 1,000 ml @ 100 mls/hr Q10H IV Last administered on 06/13/18 01:01; Start 06/12/18 at 01:53; Stop 06/13/18 at 01:52; Status DC Piperacillin Sod/ Tazobactam Sod 4.5 gm/Sodium Chloride 100 ml @ 200 mls/hr Q6HRS IV Last administered on 06/17/18 11:36; Start 06/12/18 at 02:30 Tamsulosin HCl (Flomax) 0.4 mg DAILY PO Last administered on 06/17/18 08:51; Start 06/12/18 at 10:00 Pantoprazole Sodium (PROTONIX VIAL for IV PUSH) 40 mg DAILYAC IVP Last administered on 06/16/18 10:00; Start 06/12/18 at 10:00; Stop 06/16/18 at 11:40; Status DC Metoprolol Tartrate (Lopressor Vial) 2.5 mg BID IVP Last administered on 06/14/18 21:34; Start 06/12/18 at 21:00; Stop 06/15/18 at 11:51; Status DC Fentanyl Citrate (Fentanyl 2ml Vial) 100 mcg PRN Q4HRS PRN IV SEVERE PAIN Last administered on 06/15/18 12:16; Start 06/12/18 at 09:45 Ketorolac Tromethamine (Toradol 15mg Vial) 15 mg 1X ONCE IV Last administered on 06/12/18 11:16; Start 06/12/18 at 09:45; Stop 06/12/18 at 09:46; Status DC Saliva Substitute (Biotene Moisturizing Mouth) 2 spray PRN Q15MIN PRN PO DRY MOUTH Last administered on 06/13/18 11:52; Start 06/12/18 at 09:45 Insulin Human Lispro (HumaLOG) 0-7 UNITS TIDWMEALS SQ ; Start 06/12/18 at 12:00 Dextrose (Dextrose 50%-Water Syringe) 12.5 gm PRN Q15MIN PRN IV SEE COMMENTS; Start 06/12/18 at 10:00 Micafungin Sodium 100 mg/Dextrose 100 ml @ 100 mls/hr Q24H IV Last administered on 06/17/18at 11:34; Start 06/12/18 at 12:00 Vancomycin HCl (Vanco Per Pharmacy) 1 each PRN DAILY PRN MC SEE COMMENTS Last administered on 06/16/18at 11:34; Start 06/12/18 at 10:45 Vancomycin HCl 2 gm/Sodium Chloride 500 ml @ 250 mls/hr 1X ONCE IV Last administered on 06/12/18at 14:47; Start 06/12/18 at 11:30; Stop 06/12/18 at 13:29; Status DC Vancomycin HCl 1.75 gm/Sodium Chloride 500 ml @ 250 mls/hr Q12H IV Last a dministered on 06/17/18at 09:01; Start 06/13/18 at 03:00 Vancomycin HCl (Vancomycin Trough Level) 1 each 1X ONCE MC Last administered on 06/14/18at 02:30; Start 06/14/18 at 02:30; Stop 06/14/18 at 02:31; Status DC Sodium Chloride 1,000 ml @ 1,000 mls/hr 1X ONCE IV Last administered on 06/13/18at 10:35; Start 06/13/18 at 10:30; Stop 06/13/18 at 11:29; Status DC Amino Acids/ Glycerin/ Electrolytes 1,000 ml @ 80 mls/hr [id number] IV Last administered on 06/17/18at 02:35; Start 06/13/18 at 11:00 Sodium Monofluorophosphate (Fleet Adult) 133 ml 1X ONCE AR ; Start 06/13/18 at 11:00; Stop 06/13/18 at 11:00; Status DC Insulin Glargine (Lantus) 8 units DAILY SQ ; Start 06/13/18 at 12:30 Sodium Chloride 1,000 ml @ 1,000 mls/hr 1X ONCE IV Last administered on 05/22 07/08at 10:10; Start 06/14/18 at 09:15; Stop 06/14/18 at 10:14; Status DC Carvedilol (Coreg) 37.5 mg BIDWMEALS PO Last administered on 06/15/18at 16:19; Start 06/15/18 at 17:00 Lactobacillus Rhamnosus (Culturelle) 1 cap BID PO Last administered on 06/17/18 at 08:49; Start 06/15/18 at 21:00 Iohexol (Omnipaque 300 Mg/ml) 75 ml 1X ONCE IV Last administered on 06/16/18at 06:20; Start 06/16/18 at 06:30; Stop 06/16/18 at 06:31; Status DC Info (CONTRAST GIVEN -- Rx MONITORING) 1 each PRN DAILY PRN MC SEE COMMENTS; Start 06/16/18 at 06:15; Stop 06/18/18 at 06:14 Pantoprazole Sodium (Protonix) 40 mg DAILYAC PO Last administered on 06/17/18at 08:51; Start 06/17/18 at 07:30 Amlodipine Besylate (Norvasc) 10 mg DAILY PO Last administered on 06/17/18at 09:03; Start 06/16/18 at 16:30 Pseudoephedrine HCl (Sudafed) 30 mg PRN Q6HRS PRN PO NASAL CONGESTION; Start 06/17/18 at 10:00 Acetaminophen (Tylenol) 650 mg PRN Q6HRS PRN PO MILD PAIN / TEMP Last administered on 06/17/18at 11:38; Start 06/17/18 at 10:00 Montelukast Sodium (Singulair) 10 mg QHS PO ; Start 06/17/18 at 21:00 Cetirizine HCl (ZyrTEC) 10 mg DAILY PO Last administered on 06/17/18at 11:38; Start 06/17/18 at 11:00 Ondansetron HCl (Zofran) 4 mg PRN Q6HRS PRN IV NAUSEA/VOMITING; Start 06/17/18 at 10:00 Active Scripts Active Reported [bariatric vitamins] Citracal + D Er Tablet (Calcium Carb & Cit/Vitamin D3) 1 Each Tablet.er 1 Each PO DAILY Acidophilus (Lactobacillus Acidophilus) 100 Mg Capsule 100 Mg PO DAILY Flomax (Tamsulosin Hcl) 0.4 Mg Cap.er.24h 0.4 Mg PO DAILY Fenofibrate (Fenofibrate Nanocrystallized) 145 Mg Tablet 1 Tab PO DAILY [losartan] Coreg (Carvedilol) 25 Mg Tablet 37.5 Mg PO BIDWMEALS Protonix (Pantoprazole Sodium) 20 Mg Tablet. 1 Tab PO DAILY Vitals/I & O Vital Sign - Last 24 Hours 06/16/18 06/16/18 06/16/18 06/16/18 15:00 16:28 16:31 16:33 Temp 98.1 98.1 Pulse 42 42 42 Resp 16 B/P (MAP) 170/85 (113) 170/85 170/85 Pulse Ox 96 96 O2 Delivery Room Air Room Air 06/16/18 06/16/18 06/16/18 06/16/18 17:05 19:00 19:45 20:47 Temp 98.5 98.5 Pulse 50 Resp 18 20 B/P (MAP) 162/88 (112) Pulse Ox 96 95 O2 Delivery Room Air Room Air Room Air 06/16/18 06/17/18 06/17/18 06/17/18 23:00 00:51 02:36 06:44 Temp 98.4 98.9 98.4 98.9 Pulse 55 51 Resp 18 20 18 20 B/P (MAP) 170/87 (114) 159/90 (113) Pulse Ox 95 95 O2 Delivery Room Air Room Air Room Air Room Air 06/17/18 06/17/18 06/17/18 06/17/18 07:00 07:14 08:00 08:25 Temp 98.4 98.4 98.4 98.4 Pulse 54 54 54 Resp 18 20 18 B/P (MAP) 165/88 (113) 165/88 165/88 (113) Pulse Ox 93 93 O2 Delivery Room Air Room Air Room Air 06/17/18 06/17/18 09:03 11:00 Temp 98.2 98.2 Pulse 54 73 Resp 18 B/P (MAP) 165/88 151/89 (109) Pulse Ox 96 O2 Delivery Room Air Intake and Output 06/16/18 06/16/18 06/17/18 14:59 22:59 06:59 Intake Total 400 ml 240 ml 480 ml Balance 400 ml 240 ml 480 ml LOIDA NANCE III DO Jun 17, 2018 12:27
[2018-06-17] MEDS: VANCOMYCIN PER PHARMACY MC PRN (13:29)
[2018-06-17] MEDS: TPN PER PHARMACY MC PRN (13:53)
[2018-06-17] MEDS: PSEUDOEPHEDRINE 30 MG TABLET. PO PRN ×2 (15:10→21:29)
--- NOTE | 2018-06-17 15:22 | PDOC ---
SURGICAL PROGRESS NOTE Subjective Pt feels better, no N/V, princess some clears, pain much improved, passing loose stools Vital Signs Vital Signs Date Time Temp Pulse Resp B/P (MAP) Pulse Ox O2 Delivery O2 Flow Rate FiO2 06/17/18 15:11 96 Room Air 06/17/18 11:00 98.2 73 18 151/89 (109) 98.2 I&O Intake and Output 06/17/18 07:00 Intake Total 1120 ml Balance 1120 ml Intake Oral 1000 ml Other 120 ml # Voids 1 General: Alert, Oriented X3, Cooperative, No acute distress Abdomen: Soft, No tenderness Labs Laboratory Tests Test 06/15/18 16:59 06/15/18 21:17 06/16/18 09:25 06/16/18 11:34 Glucose (Fingerstick) 121 mg/dL (70-99) 136 mg/dL (70-99) 129 mg/dL (70-99) 140 mg/dL (70-99) Test 06/16/18 21:22 06/17/18 07:19 06/17/18 11:43 Glucose (Fingerstick) 123 mg/dL (70-99) 140 mg/dL (70-99) 157 mg/dL (70-99) Laboratory Tests Test 06/16/18 21:22 06/17/18 07:19 06/17/18 11:43 Glucose (Fingerstick) 123 mg/dL (70-99) 140 mg/dL (70-99) 157 mg/dL (70-99) Problem List Problems Medical Problems: (1) Diverticulitis of colon with perforation Status: Acute Assessment/Plan perforated diverticulitis d/w pt and pt's via phone pt clinically improved, but favor drainage of abscess when OK with IR cont abx. started on PPN TRISTON VIERA MD Jun 17, 2018 15:22
[2018-06-17] MEDS: MONTELUKAST SODIUM 10 MG TABLET. PO SCH (21:29)
[2018-06-17] MEDS ORDERED: TOTAL PARENTERAL NUTRITION 1,424.9987 ML, AMINO ACID 15% 60 GM, DEXTROSE 70 % IN WATER ... IV SCH ×10 (22:00)
[2018-06-18] VITALS (23 sets, daily range): BP systolic 127–177; BP diastolic 76–105
[2018-06-18] MEDS: PIPERACILLIN/TAZOBACTAM 4.5 GM in IV NORMAL SALINE 100ML 100 ML IV SCH ×4 (00:24→20:59)
[2018-06-18] MEDS: HYDROmorphone 2 MG/ML VIAL IV PRN ×3 (04:17→21:01)
[2018-06-18 06:36] LABS: BASO % 0 % (0-3); EOS # 0.3 x10^3/uL (0.0-0.7); EOS % 5 % (0-3); HEMATOCRIT 32.7 % (39.0-53.0); LYMPH # 0.9 x10^3/uL (1.0-4.8); LYMPH % 16 % (24-48); MEAN CORPUSCULAR HEMOGLOBIN 29 pg (25-35); MEAN CORPUSCULAR HGB CONC 34 g/dL (31-37); MEAN CORPUSCULAR VOLUME 85 fL (79-100); MONO # 0.5 x10^3/uL (0.0-1.1); MONO % 9 % (0-9); NEUT % 70 % (31-73); PLATELET COUNT 223 x10^3/uL (140-400); RED BLOOD COUNT 3.83 x10^6/uL (4.30-5.70); RED CELL DISTRIBUTION WIDTH 15.7 % (11.5-14.5); WHITE BLOOD COUNT 5.8 x10^3/uL (4.0-11.0)
[2018-06-18 06:46] LABS: CALCIUM 8.8 mg/dL (8.5-10.1); CREATININE 0.8 mg/dL (0.7-1.3); GFR 101.5; MAGNESIUM 1.8 mg/dL (1.8-2.4); PHOSPHORUS 3.1 mg/dL (2.6-4.7); POTASSIUM 3.1 mmol/L (3.5-5.1)
[2018-06-18] MEDS: PANTOPRAZOLE 40 MG TABLET.DR. PO SCH (07:30)
[2018-06-18] MEDS: CARVEDILOL 12.5 MG TABLET. PO SCH ×2 (08:00→17:20)
[2018-06-18] MEDS: VANCOMYCIN 1.75 GM in IV NORMAL SALINE 500ML BAG 500 ML IV SCH ×2 (08:30→22:20)
[2018-06-18] MEDS: INSULIN LISPRO 300 UNITS/3 ML INSULN.PEN. SQ SCH ×3 (08:31→17:24)
[2018-06-18] MEDS: INSULIN GLARGINE 300 UNITS/3 ML INSULN.PEN. SQ SCH (08:32)
[2018-06-18] MEDS: TAMSULOSIN 0.4 MG CAP.ER.24H. PO SCH (08:39)
[2018-06-18] MEDS: LACTOBACILLUS RHAMNOSUS GG 1 CAPSULE. PO SCH ×2 (08:39→20:59)
[2018-06-18] MEDS: amLODIPine BESYLATE 10 MG TABLET PO SCH (08:39)
[2018-06-18] MEDS: CETIRIZINE HCL 10 MG TABLET. PO SCH (08:39)
--- NOTE | 2018-06-18 09:38 | PDOC ---
SAMIRAMICHA Gardiner Alex [employer] 06/18/18 0938: SUBJECTIVE Subjective Pt doing well at this time, waiting for further recommendations from General Surgeon. OBJECTIVE Objective Physical Exam: General appearance: Alert and Oriented Head: Normocephalic, without obvious abnormality Eyes: conjunctivae/corneas clear. PERRL, EOM's intact. Fundi benign Back: negative, no CVA pain on testing Lungs: Regular respirations, non labored breathing Abdomen: soft, non-tender, obese. Vital Signs Vital Signs Date Time Temp Pulse Resp B/P (MAP) Pulse Ox O2 Delivery O2 Flow Rate FiO2 06/18/18 07:00 97.7 60 18 135/85 (102) 94 Room Air 97.7 06/18/18 04:47 20 Room Air 06/18/18 03:00 98.6 58 18 153/91 (111) 96 Room Air 98.6 06/17/18 23:00 98.1 71 18 161/88 (112) 96 Room Air 98.1 06/17/18 19:40 Room Air 06/17/18 19:24 20 Room Air 06/17/18 19:00 97.7 56 18 152/87 (108) 95 Room Air 97.7 06/17/18 15:11 96 Room Air 06/17/18 15:00 97.8 58 16 138/78 (98) 96 Room Air 97.8 06/17/18 11:00 98.2 73 18 151/89 (109) 96 Room Air 98.2 I & O Intake and Output 06/18/18 06:59 Intake Total 1360 ml Balance 1360 ml Intake Oral 1160 ml Other 200 ml # Voids 1 PHYSICAL EXAM Physical Exam Physical Exam: General appearance: Alert and Oriented Head: Normocephalic, without obvious abnormality Eyes: conjunctivae/corneas clear. PERRL, EOM's intact. Fundi benign Back: negative, no CVA pain on testing Lungs: Regular respirations, non labored breathing Abdomen: soft, non-tender, obese. ASSESSMENT/PLAN Assessment/Plan Discussed CT findings an recommendations with patient. He verbalized understanding but already has a Urologist in [facility] that he would like to go to for follow up, Pt given a copy of CT report and Dr. Cobian's Urology Consult note with recommendations so he may bring them to his Urologist and compare/contrast recommendations whenever he does follow up. Recommend he see his Urologist shortly after his diverticulitis is resolved. All questions answered. Will sign off at this time, but please call with questions or changes in patient condition. COMMENT Lab Laboratory Tests Test 06/17/18 11:43 06/17/18 16:58 06/17/18 21:03 06/18/18 06:15 Glucose (Fingerstick) 157 mg/dL (70-99) 128 mg/dL (70-99) 129 mg/dL (70-99) White Blood Count 5.8 x10^3/uL (4.0-11.0) Red Blood Count 3.83 x10^6/uL (4.30-5.70) Hemoglobin 11.0 g/dL (13.0-17.5) Hematocrit 32.7 % (39.0-53.0) Mean Corpuscular Volume 85 fL (79-100) Mean Corpuscular Hemoglobin 29 pg (25-35) Mean Corpuscular Hemoglobin Concent 34 g/dL (31-37) Red Cell Distribution Width 15.7 % (11.5-14.5) Platelet Count 223 x10^3/uL (140-400) Neutrophils (%) (Auto) 70 % (31-73) Lymphocytes (%) (Auto) 16 % (24-48) Monocytes (%) (Auto) 9 % (0-9) Eosinophils (%) (Auto) 5 % (0-3) Basophils (%) (Auto) 0 % (0-3) Neutrophils # (Auto) 4.0 x10^3uL (1.8-7.7) Lymphocytes # (Auto) 0.9 x10^3/uL (1.0-4.8) Monocytes # (Auto) 0.5 x10^3/uL (0.0-1.1) Eosinophils # (Auto) 0.3 x10^3/uL (0.0-0.7) Basophils # (Auto) 0.0 x10^3/uL (0.0-0.2) Sodium Level 141 mmol/L (136-145) Potassium Level 3.1 mmol/L (3.5-5.1) Chloride Level 104 mmol/L (98-107) Carbon Dioxide Level 30 mmol/L (21-32) Anion Gap 7 (6-14) Blood Urea Nitrogen 6 mg/dL (8-26) Creatinine 0.8 mg/dL (0.7-1.3) Estimated GFR (Cockcroft-Gault) 101.5 Glucose Level 227 mg/dL (70-99) Calcium Level 8.8 mg/dL (8.5-10.1) Phosphorus Level 3.1 mg/dL (2.6-4.7) Magnesium Level 1.8 mg/dL (1.8-2.4) Triglycerides Level 187 mg/dL (0-150) Test 06/18/18 06:31 Glucose (Fingerstick) 208 mg/dL (70-99) LIU COBIAN MD 06/21/18 1547: ASSESSMENT/PLAN Assessment/Plan Agree with assessment and plan. MICHA HOGAN APRN Jun 18, 2018 09:38 LIU COBIAN MD June 21, 2018 15:47
--- NOTE | 2018-06-18 09:54 | PDOC ---
JULIET NAVARRO [employer]AC[employer]ITATOR 06/18/18 0954: SURGICAL PROGRESS NOTE Subjective limited clears because of his heart hx pain mild no n/v Vital Signs Vital Signs Date Time Temp Pulse Resp B/P (MAP) Pulse Ox O2 Delivery O2 Flow Rate FiO2 06/18/18 07:00 97.7 60 18 135/85 (102) 94 Room Air 97.7 I&O Intake and Output 06/18/18 07:00 Intake Total 1360 ml Balance 1360 ml Intake Oral 1160 ml Other 200 ml # Voids 1 General: Alert, Oriented X3, Cooperative, No acute distress Abdomen: Soft, Other (ND, NTTP) Labs Laboratory Tests Test 06/16/18 11:34 06/16/18 21:22 06/17/18 07:19 06/17/18 11:43 Glucose (Fingerstick) 140 mg/dL (70-99) 123 mg/dL (70-99) 140 mg/dL (70-99) 157 mg/dL (70-99) Test 06/17/18 16:58 06/17/18 21:03 06/18/18 06:15 06/18/18 06:31 Glucose (Fingerstick) 128 mg/dL (70-99) 129 mg/dL (70-99) 208 mg/dL (70-99) White Blood Count 5.8 x10^3/uL (4.0-11.0) Red Blood Count 3.83 x10^6/uL (4.30-5.70) Hemoglobin 11.0 g/dL (13.0-17.5) Hematocrit 32.7 % (39.0-53.0) Mean Corpuscular Volume 85 fL (79-100) Mean Corpuscular Hemoglobin 29 pg (25-35) Mean Corpuscular Hemoglobin Concent 34 g/dL (31-37) Red Cell Distribution Width 15.7 % (11.5-14.5) Platelet Count 223 x10^3/uL (140-400) Neutrophils (%) (Auto) 70 % (31-73) Lymphocytes (%) (Auto) 16 % (24-48) Monocytes (%) (Auto) 9 % (0-9) Eosinophils (%) (Auto) 5 % (0-3) Basophils (%) (Auto) 0 % (0-3) Neutrophils # (Auto) 4.0 x10^3uL (1.8-7.7) Lymphocytes # (Auto) 0.9 x10^3/uL (1.0-4.8) Monocytes # (Auto) 0.5 x10^3/uL (0.0-1.1) Eosinophils # (Auto) 0.3 x10^3/uL (0.0-0.7) Basophils # (Auto) 0.0 x10^3/uL (0.0-0.2) Sodium Level 141 mmol/L (136-145) Potassium Level 3.1 mmol/L (3.5-5.1) Chloride Level 104 mmol/L (98-107) Carbon Dioxide Level 30 mmol/L (21-32) Anion Gap 7 (6-14) Blood Urea Nitrogen 6 mg/dL (8-26) Creatinine 0.8 mg/dL (0.7-1.3) Estimated GFR (Cockcroft-Gault) 101.5 Glucose Level 227 mg/dL (70-99) Calcium Level 8.8 mg/dL (8.5-10.1) Phosphorus Level 3.1 mg/dL (2.6-4.7) Magnesium Level 1.8 mg/dL (1.8-2.4) Triglycerides Level 187 mg/dL (0-150) Laboratory Tests Test 06/17/18 11:43 06/17/18 16:58 06/17/18 21:03 06/18/18 06:15 Glucose (Fingerstick) 157 mg/dL (70-99) 128 mg/dL (70-99) 129 mg/dL (70-99) White Blood Count 5.8 x10^3/uL (4.0-11.0) Red Blood Count 3.83 x10^6/uL (4.30-5.70) Hemoglobin 11.0 g/dL (13.0-17.5) Hematocrit 32.7 % (39.0-53.0) Mean Corpuscular Volume 85 fL (79-100) Mean Corpuscular Hemoglobin 29 pg (25-35) Mean Corpuscular Hemoglobin Concent 34 g/dL (31-37) Red Cell Distribution Width 15.7 % (11.5-14.5) Platelet Count 223 x10^3/uL (140-400) Neutrophils (%) (Auto) 70 % (31-73) Lymphocytes (%) (Auto) 16 % (24-48) Monocytes (%) (Auto) 9 % (0-9) Eosinophils (%) (Auto) 5 % (0-3) Basophils (%) (Auto) 0 % (0-3) Neutrophils # (Auto) 4.0 x10^3uL (1.8-7.7) Lymphocytes # (Auto) 0.9 x10^3/uL (1.0-4.8) Monocytes # (Auto) 0.5 x10^3/uL (0.0-1.1) Eosinophils # (Auto) 0.3 x10^3/uL (0.0-0.7) Basophils # (Auto) 0.0 x10^3/uL (0.0-0.2) Sodium Level 141 mmol/L (136-145) Potassium Level 3.1 mmol/L (3.5-5.1) Chloride Level 104 mmol/L (98-107) Carbon Dioxide Level 30 mmol/L (21-32) Anion Gap 7 (6-14) Blood Urea Nitrogen 6 mg/dL (8-26) Creatinine 0.8 mg/dL (0.7-1.3) Estimated GFR (Cockcroft-Gault) 101.5 Glucose Level 227 mg/dL (70-99) Calcium Level 8.8 mg/dL (8.5-10.1) Phosphorus Level 3.1 mg/dL (2.6-4.7) Magnesium Level 1.8 mg/dL (1.8-2.4) Triglycerides Level 187 mg/dL (0-150) Test 06/18/18 06:31 Glucose (Fingerstick) 208 mg/dL (70-99) Problem List Problems Medical Problems: (1) Diverticulitis of colon with perforation Status: Acute Assessment/Plan waiting on IR eval for possible drainage continue abx DANIELE GREY MD 06/18/18 1407: SURGICAL PROGRESS NOTE Problem List reviewed, agree with above JULIET NAVARRO [employer] FACILITATOR Jun 18, 2018 09:54 DANIELE GREY MD Jun 18, 2018 14:07
--- NOTE | 2018-06-18 10:11 | PDOC ---
Infectious Disease Note Subjective Subjective feeling good,no complaints ROS ROS no n/v/d/sob/pain Vital Sign Vital Signs Vital Signs Date Time Temp Pulse Resp B/P (MAP) Pulse Ox O2 Delivery O2 Flow Rate FiO2 06/18/18 07:00 97.7 60 18 135/85 (102) 94 Room Air 97.7 Physical Exam PHYSICAL EXAM GENERAL: Sitting upright in bed, alert, NAD HEENT: Oral cavity, pharynx clear. NECK: Supple, no JVD. LUNGS: Decreased in the bases. HEART: S1, S2. ABDOMEN: Obese, soft, nontender EXTREMITIES: Without clubbing or cyanosis. No gross edema. SKIN: Warm to touch without signs of rash. NEUROLOGIC: Alert and oriented x 3 RUE-PICC (06/16) clean Labs Lab Laboratory Tests Test 06/17/18 11:43 06/17/18 16:58 06/17/18 21:03 06/18/18 06:15 Glucose (Fingerstick) 157 mg/dL (70-99) 128 mg/dL (70-99) 129 mg/dL (70-99) White Blood Count 5.8 x10^3/uL (4.0-11.0) Red Blood Count 3.83 x10^6/uL (4.30-5.70) Hemoglobin 11.0 g/dL (13.0-17.5) Hematocrit 32.7 % (39.0-53.0) Mean Corpuscular Volume 85 fL (79-100) Mean Corpuscular Hemoglobin 29 pg (25-35) Mean Corpuscular Hemoglobin Concent 34 g/dL (31-37) Red Cell Distribution Width 15.7 % (11.5-14.5) Platelet Count 223 x10^3/uL (140-400) Neutrophils (%) (Auto) 70 % (31-73) Lymphocytes (%) (Auto) 16 % (24-48) Monocytes (%) (Auto) 9 % (0-9) Eosinophils (%) (Auto) 5 % (0-3) Basophils (%) (Auto) 0 % (0-3) Neutrophils # (Auto) 4.0 x10^3uL (1.8-7.7) Lymphocytes # (Auto) 0.9 x10^3/uL (1.0-4.8) Monocytes # (Auto) 0.5 x10^3/uL (0.0-1.1) Eosinophils # (Auto) 0.3 x10^3/uL (0.0-0.7) Basophils # (Auto) 0.0 x10^3/uL (0.0-0.2) Sodium Level 141 mmol/L (136-145) Potassium Level 3.1 mmol/L (3.5-5.1) Chloride Level 104 mmol/L (98-107) Carbon Dioxide Level 30 mmol/L (21-32) Anion Gap 7 (6-14) Blood Urea Nitrogen 6 mg/dL (8-26) Creatinine 0.8 mg/dL (0.7-1.3) Estimated GFR (Cockcroft-Gault) 101.5 Glucose Level 227 mg/dL (70-99) Calcium Level 8.8 mg/dL (8.5-10.1) Phosphorus Level 3.1 mg/dL (2.6-4.7) Magnesium Level 1.8 mg/dL (1.8-2.4) Triglycerides Level 187 mg/dL (0-150) Test 06/18/18 06:31 Glucose (Fingerstick) 208 mg/dL (70-99) Objective Assessment Perforated diverticulitis w/worsening left pelvic abscess on CT 06/16 H/o staph infection recent doxycycline in [place] around his Gastric bypass ? left max sinusitis on CT Sulfa allergy DM Exophytic lesion of the left kidney concerning for renal cell carcinoma. Urology following Plan Plan of Care Cont vanc, Zosyn and Micafungin Await IR consult for drainage, cultures requested Monitor labs/temp Gen surgery following CHATO LORENZ MD Jun 18, 2018 10:11
--- NOTE | 2018-06-18 10:34 | PDOC ---
PROGRESS NOTES Chief Complaint Chief Complaint peritonitis perforated diverticulitis Incidental finding of a left one-inch renal mass awaiting eventual cryotherapy Patient presented for CT drain placement. Collection appeared slightly smaller. Collection was aspirated under CT with essentially all contents removed. These were sent for gram stain and culture. Drain was not placed, as collapsed cavity made this unfeasible. History of Present Illness History of Present Illness Patient was seen and examined Discussed the case at length with him Reviewed the films Talk to his nurse 43 min pt exam, chart review, > 50% of time spent with exam, chart review, pt ca re coordination Vitals Vitals Vital Signs Date Time Temp Pulse Resp B/P (MAP) Pulse Ox O2 Delivery O2 Flow Rate FiO2 06/18/18 07:00 97.7 60 18 135/85 (102) 94 Room Air 97.7 Physical Exam Physical Exam GENERAL: Sitting upright in bed, alert, NAD HEENT: Oral cavity, pharynx clear. NECK: Supple, no JVD. LUNGS: Decreased in the bases. HEART: S1, S2. ABDOMEN: Obese, soft, nontender EXTREMITIES: Without clubbing or cyanosis. No gross edema. SKIN: Warm to touch without signs of rash. NEUROLOGIC: Alert and oriented x 3 RUE-PICC (06/16) clean General: Alert, Oriented X3, Cooperative, No acute distress Heart: Regular rate, Normal S1, Normal S2, No murmurs Lungs: Clear (No wheezes, rales, or rhonchi) Abdomen: Soft, Other (ND, NTTP) Extremities: No edema, Normal pulses, No tenderness/swelling Skin: No rashes, No breakdown, No significant lesion Labs LABS Laboratory Tests Test 06/17/18 11:43 06/17/18 16:58 06/17/18 21:03 06/18/18 06:15 Glucose (Fingerstick) 157 mg/dL (70-99) 128 mg/dL (70-99) 129 mg/dL (70-99) White Blood Count 5.8 x10^3/uL (4.0-11.0) Red Blood Count 3.83 x10^6/uL (4.30-5.70) Hemoglobin 11.0 g/dL (13.0-17.5) Hematocrit 32.7 % (39.0-53.0) Mean Corpuscular Volume 85 fL (79-100) Mean Corpuscular Hemoglobin 29 pg (25-35) Mean Corpuscular Hemoglobin Concent 34 g/dL (31-37) Red Cell Distribution Width 15.7 % (11.5-14.5) Platelet Count 223 x10^3/uL (140-400) Neutrophils (%) (Auto) 70 % (31-73) Lymphocytes (%) (Auto) 16 % (24-48) Monocytes (%) (Auto) 9 % (0-9) Eosinophils (%) (Auto) 5 % (0-3) Basophils (%) (Auto) 0 % (0-3) Neutrophils # (Auto) 4.0 x10^3uL (1.8-7.7) Lymphocytes # (Auto) 0.9 x10^3/uL (1.0-4.8) Monocytes # (Auto) 0.5 x10^3/uL (0.0-1.1) Eosinophils # (Auto) 0.3 x10^3/uL (0.0-0.7) Basophils # (Auto) 0.0 x10^3/uL (0.0-0.2) Sodium Level 141 mmol/L (136-145) Potassium Level 3.1 mmol/L (3.5-5.1) Chloride Level 104 mmol/L (98-107) Carbon Dioxide Level 30 mmol/L (21-32) Anion Gap 7 (6-14) Blood Urea Nitrogen 6 mg/dL (8-26) Creatinine 0.8 mg/dL (0.7-1.3) Estimated GFR (Cockcroft-Gault) 101.5 Glucose Level 227 mg/dL (70-99) Calcium Level 8.8 mg/dL (8.5-10.1) Phosphorus Level 3.1 mg/dL (2.6-4.7) Magnesium Level 1.8 mg/dL (1.8-2.4) Triglycerides Level 187 mg/dL (0-150) Test 06/18/18 06:31 Glucose (Fingerstick) 208 mg/dL (70-99) Assessment and Plan Assessmemt and Plan Problems Medical Problems: (1) Diverticulitis of colon with perforation Status: Acute Comment Review of Relevant I have reviewed the following items thania (where applicable) has been applied. Labs Laboratory Tests Test 06/16/18 11:34 06/16/18 21:22 06/17/18 07:19 06/17/18 11:43 Glucose (Fingerstick) 140 mg/dL (70-99) 123 mg/dL (70-99) 140 mg/dL (70-99) 157 mg/dL (70-99) Test 06/17/18 16:58 06/17/18 21:03 06/18/18 06:15 06/18/18 06:31 Glucose (Fingerstick) 128 mg/dL (70-99) 129 mg/dL (70-99) 208 mg/dL (70-99) White Blood Count 5.8 x10^3/uL (4.0-11.0) Red Blood Count 3.83 x10^6/uL (4.30-5.70) Hemoglobin 11.0 g/dL (13.0-17.5) Hematocrit 32.7 % (39.0-53.0) Mean Corpuscular Volume 85 fL (79-100) Mean Corpuscular Hemoglobin 29 pg (25-35) Mean Corpuscular Hemoglobin Concent 34 g/dL (31-37) Red Cell Distribution Width 15.7 % (11.5-14.5) Platelet Count 223 x10^3/uL (140-400) Neutrophils (%) (Auto) 70 % (31-73) Lymphocytes (%) (Auto) 16 % (24-48) Monocytes (%) (Auto) 9 % (0-9) Eosinophils (%) (Auto) 5 % (0-3) Basophils (%) (Auto) 0 % (0-3) Neutrophils # (Auto) 4.0 x10^3uL (1.8-7.7) Lymphocytes # (Auto) 0.9 x10^3/uL (1.0-4.8) Monocytes # (Auto) 0.5 x10^3/uL (0.0-1.1) Eosinophils # (Auto) 0.3 x10^3/uL (0.0-0.7) Basophils # (Auto) 0.0 x10^3/uL (0.0-0.2) Sodium Level 141 mmol/L (136-145) Potassium Level 3.1 mmol/L (3.5-5.1) Chloride Level 104 mmol/L (98-107) Carbon Dioxide Level 30 mmol/L (21-32) Anion Gap 7 (6-14) Blood Urea Nitrogen 6 mg/dL (8-26) Creatinine 0.8 mg/dL (0.7-1.3) Estimated GFR (Cockcroft-Gault) 101.5 Glucose Level 227 mg/dL (70-99) Calcium Level 8.8 mg/dL (8.5-10.1) Phosphorus Level 3.1 mg/dL (2.6-4.7) Magnesium Level 1.8 mg/dL (1.8-2.4) Triglycerides Level 187 mg/dL (0-150) Laboratory Tests Test 06/17/18 11:43 06/17/18 16:58 06/17/18 21:03 06/18/18 06:15 Glucose (Fingerstick) 157 mg/dL (70-99) 128 mg/dL (70-99) 129 mg/dL (70-99) White Blood Count 5.8 x10^3/uL (4.0-11.0) Red Blood Count 3.83 x10^6/uL (4.30-5.70) Hemoglobin 11.0 g/dL (13.0-17.5) Hematocrit 32.7 % (39.0-53.0) Mean Corpuscular Volume 85 fL (79-100) Mean Corpuscular Hemoglobin 29 pg (25-35) Mean Corpuscular Hemoglobin Concent 34 g/dL (31-37) Red Cell Distribution Width 15.7 % (11.5-14.5) Platelet Count 223 x10^3/uL (140-400) Neutrophils (%) (Auto) 70 % (31-73) Lymphocytes (%) (Auto) 16 % (24-48) Monocytes (%) (Auto) 9 % (0-9) Eosinophils (%) (Auto) 5 % (0-3) Basophils (%) (Auto) 0 % (0-3) Neutrophils # (Auto) 4.0 x10^3uL (1.8-7.7) Lymphocytes # (Auto) 0.9 x10^3/uL (1.0-4.8) Monocytes # (Auto) 0.5 x10^3/uL (0.0-1.1) Eosinophils # (Auto) 0.3 x10^3/uL (0.0-0.7) Basophils # (Auto) 0.0 x10^3/uL (0.0-0.2) Sodium Level 141 mmol/L (136-145) Potassium Level 3.1 mmol/L (3.5-5.1) Chloride Level 104 mmol/L (98-107) Carbon Dioxide Level 30 mmol/L (21-32) Anion Gap 7 (6-14) Blood Urea Nitrogen 6 mg/dL (8-26) Creatinine 0.8 mg/dL (0.7-1.3) Estimated GFR (Cockcroft-Gault) 101.5 Glucose Level 227 mg/dL (70-99) Calcium Level 8.8 mg/dL (8.5-10.1) Phosphorus Level 3.1 mg/dL (2.6-4.7) Magnesium Level 1.8 mg/dL (1.8-2.4) Triglycerides Level 187 mg/dL (0-150) Test 06/18/18 06:31 Glucose (Fingerstick) 208 mg/dL (70-99) Medications Current Medications Fentanyl Citrate (Fentanyl 2ml Vial) 50 mcg 1X ONCE IV Last administered on 06/11/18at 22:46; Start 06/11/18 at 22:45; Stop 06/11/18 at 22:46; Status DC Ondansetron HCl (Zofran) 4 mg 1X ONCE IV Last administered on 06/11/18at 22:46; Start 06/11/18 at 22:45; Stop 06/11/18 at 22:46; Status DC Sodium Chloride 1,000 ml @ 1,000 mls/hr 1X ONCE IV Last administered on 06/11/18at 22:47; Start 06/11/18 at 22:45; Stop 06/11/18 at 23:44; Status DC Iohexol (Omnipaque 300 Mg/ml) 75 ml 1X ONCE IV Last administered on 06/11/18at 23:15; Start 06/11/18 at 23:15; Stop 06/11/18 at 23:16; Status DC Info (CONTRAST GIVEN -- Rx MONITORING) 1 each PRN DAILY PRN MC SEE COMMENTS; Start 06/11/18 at 23:15; Stop 06/13/18 at 23:14; Status DC Piperacillin Sod/ Tazobactam Sod (Zosyn Per Pharmacy) 1 each PRN DAILY PRN MC SEE COMMENTS; Start 06/12/18 at 02:30 Hydromorphone HCl (Dilaudid) 1 mg PRN Q4HRS PRN IV MODERATE PAIN Last administered on 06/18/18 04:17; Start 06/12/18 at 02:00 Ondansetron HCl (Zofran) 4 mg PRN Q8HRS PRN IV NAUSEA/VOMITING; Start 06/12/18 at 02:00; Stop 06/13/18 at 01:59; Status DC Sodium Chloride 1,000 ml @ 100 mls/hr Q10H IV Last administered on 06/13/18at 01:01; Start 06/12/18 at 01:53; Stop 06/13/18 at 01:52; Status DC Piperacillin Sod/ Tazobactam Sod 4.5 gm/Sodium Chloride 100 ml @ 200 mls/hr Q6HRS IV Last administered on 06/18/18 06:24; Start 06/12/18 at 02:30 Tamsulosin HCl (Flomax) 0.4 mg DAILY PO Last administered on 06/17/18 08:51; Start 06/12/18 at 10:00 Pantoprazole Sodium (PROTONIX VIAL for IV PUSH) 40 mg DAILYAC IVP Last administered on 06/16/18 10:00; Start 06/12/18 at 10:00; Stop 06/16/18 at 11:40; Status DC Metoprolol Tartrate (Lopressor Vial) 2.5 mg BID IVP Last administered on 06/14/18 21:34; Start 06/12/18 at 21:00; Stop 06/15/18 at 11:51; Status DC Fentanyl Citrate (Fentanyl 2ml Vial) 100 mcg PRN Q4HRS PRN IV SEVERE PAIN Last administered on 06/15/18 12:16; Start 06/12/18 at 09:45 Ketorolac Tromethamine (Toradol 15mg Vial) 15 mg 1X ONCE IV Last administered on 06/12/18 11:16; Start 06/12/18 at 09:45; Stop 06/12/18 at 09:46; Status DC Saliva Substitute (Biotene Moisturizing Mouth) 2 spray PRN Q15MIN PRN PO DRY MOUTH Last administered on 4/24/19at 11:52; Start 06/12/18 at 09:45 Insulin Human Lispro (HumaLOG) 0-7 UNITS TIDWMEALS SQ Last administered on 06/18/18 08:31; Start 06/12/18 at 12:00 Dextrose (Dextrose 50%-Water Syringe) 12.5 gm PRN Q15MIN PRN IV SEE COMMENTS; Start 06/12/18 at 10:00 Micafungin Sodium 100 mg/Dextrose 100 ml @ 100 mls/hr Q24H IV Last administered on 06/17/18 11:34; Start 06/12/18 at 12:00 Vancomycin HCl (Vanco Per Pharmacy) 1 each PRN DAILY PRN MC SEE COMMENTS Last administered on 06/17/18 13:29; Start 06/12/18 at 10:45 Vancomycin HCl 2 gm/Sodium Chloride 500 ml @ 250 mls/hr 1X ONCE IV Last administered on 06/12/18 14:47; Start 06/12/18 at 11:30; Stop 06/12/18 at 13:29; Status DC Vancomycin HCl 1.75 gm/Sodium Chloride 500 ml @ 250 mls/hr Q12H IV Last administered on 06/18/18 08:30; Start 06/13/18 at 03:00 Vancomycin HCl (Vancomycin Trough Level) 1 each 1X ONCE MC Last administered on 06/14/18 02:30; Start 06/14/18 at 02:30; Stop 06/14/18 at 02:31; Status DC Sodium Chloride 1,000 ml @ 1,000 mls/hr 1X ONCE IV Last administered on 06/13/18at 10:35; Start 06/13/18 at 10:30; Stop 06/13/18 at 11:29; Status DC Amino Acids/ Glycerin/ Electrolytes 1,000 ml @ 80 mls/hr [id number] IV Last administered on 06/17/18 15:12; Start 06/13/18 at 11:00; Stop 06/17/18 at 21:59; Status DC Sodium Monofluorophosphate (Fleet Adult) 133 ml 1X ONCE IA ; Start 06/13/18 at 11:00; Stop 06/13/18 at 11:00; Status DC Insulin Glargine (Lantus) 8 units DAILY SQ Last administered on 4/29/19at 08: 32; Start 06/13/18 at 12:30 Sodium Chloride 1,000 ml @ 1,000 mls/hr 1X ONCE IV Last administered on 06/14/18 10:10; Start 06/14/18 at 09:15; Stop 06/14/18 at 10:14; Status DC Carvedilol (Coreg) 37.5 mg BIDWMEALS PO Last administered on 06/15/18 16:19; Start 06/15/18 at 17:00 Lactobacillus Rhamnosus (Culturelle) 1 cap BID PO Last administered on 06/17/18 21:29; Start 06/15/18 at 21:00 Iohexol (Omnipaque 300 Mg/ml) 75 ml 1X ONCE IV Last administered on 06/16/18 06:20; Start 06/16/18 at 06:30; Stop 06/16/18 at 06:31; Status DC Info (CONTRAST GIVEN -- Rx MONITORING) 1 each PRN DAILY PRN MC SEE COMMENTS; Start 06/16/18 at 06:15; Stop 06/18/18 at 06:14; Status DC Pantoprazole Sodium (Protonix) 40 mg DAILYAC PO Last administered on 06/17/18 08:51; Start 06/17/18 at 07:30 Amlodipine Besylate (Norvasc) 10 mg DAILY PO Last administered on 06/17/18 09:03; Start 06/16/18 at 16:30 Pseudoephedrine HCl (Sudafed) 30 mg PRN Q6HRS PRN PO NASAL CONGESTION Last administered on 06/17/18 21:29; Start 06/17/18 at 10:00 Acetaminophen (Tylenol) 650 mg PRN Q6HRS PRN PO MILD PAIN / TEMP Last administered on 06/17/18 21:29; Start 06/17/18 at 10:00 Montelukast Sodium (Singulair) 10 mg QHS PO Last administered on 06/17/18 21:29; Start 06/17/18 at 21:00 Cetirizine HCl (ZyrTEC) 10 mg DAILY PO Last administered on 06/17/18 11:38; Start 06/17/18 at 11:00 Ondansetron HCl (Zofran) 4 mg PRN Q6HRS PRN IV NAUSEA/VOMITING; Start 06/17/18 at 10:00 Info (Tpn Per Pharmacy) 1 each PRN DAILY PRN MC SEE COMMENTS Last administered on 06/17/18at 13:53; Start 06/17/18 at 22:00 Sodium Chloride 90 meq/Potassium Chloride 50 meq/ Potassium Phosphate 13.6 mmol/Magnesium Sulfate 10 meq/ Calcium Gluconate 10 meq/ Multivitamins 10 ml/Chromium/ Copper/Manganese/ Seleni/Zn 1 ml/ Total Parenteral Nutrition/Amino Acids/Dextrose/ Fat Emulsion Intravenous 1,512 ml @ 63 mls/hr TPN CONT IV Last administered on 06/17/18at 22:16; Start 06/17/18 at 22:00; Stop 06/18/18 at 21:59 Active Scripts Active Reported [bariatric vitamins] Citracal + D Er Tablet (Calcium Carb & Cit/Vitamin D3) 1 Each Tablet.er 1 Each PO DAILY Acidophilus (Lactobacillus Acidophilus) 100 Mg Capsule 100 Mg PO DAILY Flomax (Tamsulosin Hcl) 0.4 Mg Cap.er.24h 0.4 Mg PO DAILY Fenofibrate (Fenofibrate Nanocrystallized) 145 Mg Tablet 1 Tab PO DAILY [losartan] Coreg (Carvedilol) 25 Mg Tablet 37.5 Mg PO BIDWMEALS Protonix (Pantoprazole Sodium) 20 Mg Tablet. 1 Tab PO DAILY Vitals/I & O Vital Sign - Last 24 Hours 06/17/18 06/17/18 06/17/18 06/17/18 11:00 15:00 15:11 19:00 Temp 98.2 97.8 97.7 98.2 97.8 97.7 Pulse 73 58 56 Resp 18 16 18 B/P (MAP) 151/89 (109) 138/78 (98) 152/87 (108) Pulse Ox 96 96 96 95 O2 Delivery Room Air Room Air Room Air Room Air 06/17/18 06/17/18 06/17/18 06/18/18 19:24 19:40 23:00 03:00 Temp 98.1 98.6 98.1 98.6 Pulse 71 58 Resp 20 18 18 B/P (MAP) 161/88 (112) 153/91 (111) Pulse Ox 96 96 O2 Delivery Room Air Room Air Room Air Room Air 06/18/18 06/18/18 04:47 07:00 Temp 97.7 97.7 Pulse 60 Resp 20 18 B/P (MAP) 135/85 (102) Pulse Ox 94 O2 Delivery Room Air Room Air Intake and Output 06/17/18 06/17/18 06/18/18 14:59 22:59 06:59 Intake Total 720 ml 200 ml 440 ml Balance 720 ml 200 ml 440 ml RUKHSANA GALARZA MD Jun 18, 2018 10:34
[2018-06-18] MEDS ORDERED: LIDOCAINE WITH 8.4% SOD BICARB 3 ML DISP.SYRIN. ONE (13:10)
[2018-06-18] MEDS: MICAFUNGIN 100 MG in IV DEXTROSE 5% 100ML 100 ML IV SCH (13:12)
[2018-06-18] MEDS ORDERED: fentaNYL PF VIAL 100 MCG/2 ML VIAL ONE (13:25)
[2018-06-18] MEDS ORDERED: MIDAZOLAM HCL/PF 2 MG/2 ML VIAL. ONE (13:25)
[2018-06-18] MEDS ORDERED: LIDOCAINE WITH 8.4% SOD BICARB 3 ML DISP.SYRIN. IJ ONE (13:30)
[2018-06-18] MEDS ORDERED: MIDAZOLAM HCL/PF 2 MG/2 ML VIAL. IV ONE (13:30)
[2018-06-18] MEDS ORDERED: fentaNYL PF VIAL 100 MCG/2 ML VIAL IV ONE (13:30)
[2018-06-18] MEDS: VANCOMYCIN PER PHARMACY MC PRN (13:35)
[2018-06-18] MEDS: TPN PER PHARMACY MC PRN (14:22)
--- NOTE | 2018-06-18 14:53 | PDOC ---
Provider Note Provider Note IR NOTE Patient presented for CT drain placement. Collection appeared slightly smaller. Collection was aspirated under CT with essentially all contents removed. These were sent for gram stain and culture. Drain was not placed, as collapsed cavity made this unfeasible. Would repeat ct imaging to confirm resolution as patient approaches end of antibiotic therapy or if there is clinical change. CHEYENNE PARTIDA MD Jun 18, 2018 14:53
[2018-06-18] MEDS: POTASSIUM CHL 20MEQ PREMIX 50 ML IV SCH ×2 (15:55→17:45)
[2018-06-18] MEDS: MONTELUKAST SODIUM 10 MG TABLET. PO SCH (21:00)
[2018-06-18] MEDS ORDERED: AMINO ACID IV SCH ×10 (22:00)
[2018-06-18] MEDS ORDERED: [UNRECOGNIZED DRUG - OTHER] IV SCH ×10 (22:00)
[2018-06-18] MEDS ORDERED: TOTAL PARENTERAL NUTRITION IV SCH ×10 (22:00)
[2018-06-18] MEDS ORDERED: DEXTROSE 70% IV SCH ×10 (22:00)
[2018-06-19] MEDS: PIPERACILLIN/TAZOBACTAM 4.5 GM in IV NORMAL SALINE 100ML 100 ML IV SCH ×4 (01:05→17:35)
[2018-06-19 03:00] VITALS: BP 151/62
[2018-06-19] MEDS: HYDROmorphone 2 MG/ML VIAL IV PRN (04:23)
[2018-06-19] MEDS: PANTOPRAZOLE 40 MG TABLET.DR. PO SCH (06:18)
[2018-06-19 07:00] VITALS: BP 142/93
[2018-06-19] MEDS: LACTOBACILLUS RHAMNOSUS GG 1 CAPSULE. PO SCH ×2 (08:45→21:52)
[2018-06-19] MEDS: CETIRIZINE HCL 10 MG TABLET. PO SCH (08:45)
[2018-06-19] MEDS: VANCOMYCIN 1.75 GM in IV NORMAL SALINE 500ML BAG 500 ML IV SCH ×2 (08:45→20:32)
[2018-06-19] MEDS: amLODIPine BESYLATE 10 MG TABLET PO SCH (08:45)
[2018-06-19] MEDS: TAMSULOSIN 0.4 MG CAP.ER.24H. PO SCH (08:47)
[2018-06-19] MEDS: CARVEDILOL 12.5 MG TABLET. PO SCH ×2 (08:47→17:34)
[2018-06-19] MEDS: INSULIN LISPRO 300 UNITS/3 ML INSULN.PEN. SQ SCH ×3 (08:53→17:38)
[2018-06-19] MEDS: INSULIN GLARGINE 300 UNITS/3 ML INSULN.PEN. SQ SCH (08:54)
[2018-06-19 10:24] LABS: BASO # 0.1 x10^3/uL (0.0-0.2); BASO % 1 % (0-3); EOS # 0.3 x10^3/uL (0.0-0.7); EOS % 6 % (0-3); HEMATOCRIT 34.2 % (39.0-53.0); HEMOGLOBIN 11.3 g/dL (13.0-17.5); LYMPH # 1.2 x10^3/uL (1.0-4.8); LYMPH % 21 % (24-48); MEAN CORPUSCULAR HEMOGLOBIN 28 pg (25-35); MEAN CORPUSCULAR HGB CONC 33 g/dL (31-37); MEAN CORPUSCULAR VOLUME 85 fL (79-100); MONO # 0.5 x10^3/uL (0.0-1.1); MONO % 9 % (0-9); NEUT # 3.5 x10^3uL (1.8-7.7); NEUT % 62 % (31-73); PLATELET COUNT 264 x10^3/uL (140-400); RED BLOOD COUNT 4.03 x10^6/uL (4.30-5.70); RED CELL DISTRIBUTION WIDTH 16.1 % (11.5-14.5); WHITE BLOOD COUNT 5.6 x10^3/uL (4.0-11.0)
[2018-06-19 10:41] LABS: CALCIUM 9.1 mg/dL (8.5-10.1); GFR 78.5; MAGNESIUM 1.9 mg/dL (1.8-2.4); PHOSPHORUS 3.1 mg/dL (2.6-4.7); POTASSIUM 3.7 mmol/L (3.5-5.1)
[2018-06-19 11:00] VITALS: BP 148/95
--- NOTE | 2018-06-19 11:51 | PDOC ---
JULIET NAVARRO [employer] 06/19/18 1151: SURGICAL PROGRESS NOTE Subjective no pain, had pain at perc site last night no n/v Vital Signs Vital Signs Date Time Temp Pulse Resp B/P (MAP) Pulse Ox O2 Delivery O2 Flow Rate FiO2 06/19/18 08:47 63 142/93 06/19/18 07:00 97.7 16 96 Room Air 97.7 06/19/18 04:23 2.0 I&O Intake and Output 06/19/18 06:59 Intake Total 550 ml Balance 550 ml Intake Oral 550 ml # Voids 2 # Bowel Movements 1 General: Alert, Oriented X3, Cooperative, No acute distress Abdomen: Soft, No tenderness Labs Laboratory Tests Test 06/17/18 16:58 06/17/18 21:03 06/18/18 06:15 06/18/18 06:31 Glucose (Fingerstick) 128 mg/dL (70-99) 129 mg/dL (70-99) 208 mg/dL (70-99) White Blood Count 5.8 x10^3/uL (4.0-11.0) Red Blood Count 3.83 x10^6/uL (4.30-5.70) Hemoglobin 11.0 g/dL (13.0-17.5) Hematocrit 32.7 % (39.0-53.0) Mean Corpuscular Volume 85 fL (79-100) Mean Corpuscular Hemoglobin 29 pg (25-35) Mean Corpuscular Hemoglobin Concent 34 g/dL (31-37) Red Cell Distribution Width 15.7 % (11.5-14.5) Platelet Count 223 x10^3/uL (140-400) Neutrophils (%) (Auto) 70 % (31-73) Lymphocytes (%) (Auto) 16 % (24-48) Monocytes (%) (Auto) 9 % (0-9) Eosinophils (%) (Auto) 5 % (0-3) Basophils (%) (Auto) 0 % (0-3) Neutrophils # (Auto) 4.0 x10^3uL (1.8-7.7) Lymphocytes # (Auto) 0.9 x10^3/uL (1.0-4.8) Monocytes # (Auto) 0.5 x10^3/uL (0.0-1.1) Eosinophils # (Auto) 0.3 x10^3/uL (0.0-0.7) Basophils # (Auto) 0.0 x10^3/uL (0.0-0.2) Sodium Level 141 mmol/L (136-145) Potassium Level 3.1 mmol/L (3.5-5.1) Chloride Level 104 mmol/L (98-107) Carbon Dioxide Level 30 mmol/L (21-32) Anion Gap 7 (6-14) Blood Urea Nitrogen 6 mg/dL (8-26) Creatinine 0.8 mg/dL (0.7-1.3) Estimated GFR (Cockcroft-Gault) 101.5 Glucose Level 227 mg/dL (70-99) Calcium Level 8.8 mg/dL (8.5-10.1) Phosphorus Level 3.1 mg/dL (2.6-4.7) Magnesium Level 1.8 mg/dL (1.8-2.4) Triglycerides Level 187 mg/dL (0-150) Test 06/18/18 12:04 06/18/18 17:03 06/18/18 20:56 06/19/18 08:23 Glucose (Fingerstick) 203 mg/dL (70-99) 219 mg/dL (70-99) 187 mg/dL (70-99) 201 mg/dL (70-99) Test 06/19/18 10:20 White Blood Count 5.6 x10^3/uL (4.0-11.0) Red Blood Count 4.03 x10^6/uL (4.30-5.70) Hemoglobin 11.3 g/dL (13.0-17.5) Hematocrit 34.2 % (39.0-53.0) Mean Corpuscular Volume 85 fL (79-100) Mean Corpuscular Hemoglobin 28 pg (25-35) Mean Corpuscular Hemoglobin Concent 33 g/dL (31-37) Red Cell Distribution Width 16.1 % (11.5-14.5) Platelet Count 264 x10^3/uL (140-400) Neutrophils (%) (Auto) 62 % (31-73) Lymphocytes (%) (Auto) 21 % (24-48) Monocytes (%) (Auto) 9 % (0-9) Eosinophils (%) (Auto) 6 % (0-3) Basophils (%) (Auto) 1 % (0-3) Neutrophils # (Auto) 3.5 x10^3uL (1.8-7.7) Lymphocytes # (Auto) 1.2 x10^3/uL (1.0-4.8) Monocytes # (Auto) 0.5 x10^3/uL (0.0-1.1) Eosinophils # (Auto) 0.3 x10^3/uL (0.0-0.7) Basophils # (Auto) 0.1 x10^3/uL (0.0-0.2) Sodium Level 138 mmol/L (136-145) Potassium Level 3.7 mmol/L (3.5-5.1) Chloride Level 103 mmol/L (98-107) Carbon Dioxide Level 28 mmol/L (21-32) Anion Gap 7 (6-14) Blood Urea Nitrogen 5 mg/dL (8-26) Creatinine 1.0 mg/dL (0.7-1.3) Estimated GFR (Cockcroft-Gault) 78.5 Glucose Level 223 mg/dL (70-99) Calcium Level 9.1 mg/dL (8.5-10.1) Phosphorus Level 3.1 mg/dL (2.6-4.7) Magnesium Level 1.9 mg/dL (1.8-2.4) Laboratory Tests Test 06/18/18 12:04 06/18/18 17:03 06/18/18 20:56 06/19/18 08:23 Glucose (Fingerstick) 203 mg/dL (70-99) 219 mg/dL (70-99) 187 mg/dL (70-99) 201 mg/dL (70-99) Test 06/19/18 10:20 White Blood Count 5.6 x10^3/uL (4.0-11.0) Red Blood Count 4.03 x10^6/uL (4.30-5.70) Hemoglobin 11.3 g/dL (13.0-17.5) Hematocrit 34.2 % (39.0-53.0) Mean Corpuscular Volume 85 fL (79-100) Mean Corpuscular Hemoglobin 28 pg (25-35) Mean Corpuscular Hemoglobin Concent 33 g/dL (31-37) Red Cell Distribution Width 16.1 % (11.5-14.5) Platelet Count 264 x10^3/uL (140-400) Neutrophils (%) (Auto) 62 % (31-73) Lymphocytes (%) (Auto) 21 % (24-48) Monocytes (%) (Auto) 9 % (0-9) Eosinophils (%) (Auto) 6 % (0-3) Basophils (%) (Auto) 1 % (0-3) Neutrophils # (Auto) 3.5 x10^3uL (1.8-7.7) Lymphocytes # (Auto) 1.2 x10^3/uL (1.0-4.8) Monocytes # (Auto) 0.5 x10^3/uL (0.0-1.1) Eosinophils # (Auto) 0.3 x10^3/uL (0.0-0.7) Basophils # (Auto) 0.1 x10^3/uL (0.0-0.2) Sodium Level 138 mmol/L (136-145) Potassium Level 3.7 mmol/L (3.5-5.1) Chloride Level 103 mmol/L (98-107) Carbon Dioxide Level 28 mmol/L (21-32) Anion Gap 7 (6-14) Blood Urea Nitrogen 5 mg/dL (8-26) Creatinine 1.0 mg/dL (0.7-1.3) Estimated GFR (Cockcroft-Gault) 78.5 Glucose Level 223 mg/dL (70-99) Calcium Level 9.1 mg/dL (8.5-10.1) Phosphorus Level 3.1 mg/dL (2.6-4.7) Magnesium Level 1.9 mg/dL (1.8-2.4) Problem List Problems Medical Problems: (1) Diverticulitis of colon with perforation Status: Acute Assessment/Plan advance diet reports ID discussing home tomorrow on IV abx likely outpt ct to FU, can FU in clinic with DANIELE Donald MD 06/19/18 6255: SURGICAL PROGRESS NOTE Assessment/Plan Reviewed, agree with above, can FU in 2 weeks in office JULIET NAVARRO APRN Jun 19, 2018 11:51 DANIELE GREY MD Jun 19, 2018 13:44
--- NOTE | 2018-06-19 12:05 | PDOC ---
PROGRESS NOTES Chief Complaint Chief Complaint peritonitis perforated diverticulitis Incidental finding of a left one-inch renal mass awaiting eventual cryotherapy exophytic lesion of the left kidney concerning for renal cell carcinoma until proven otherwise. reviewed CT drain placement. Collection appeared slightly smaller. Collection was aspirated under CT with essentially all contents removed. These were sent for gram stain and culture. Drain was not placed, as collapsed cavity made this unfeasible. History of Present Illness History of Present Illness Patient was seen and examined Discussed the case at length with him Reviewed the films Would repeat ct imaging to confirm resolution as patient approaches end of antibiotic therapy or if there is clinical change. 45 min pt exam, chart review, > 50% of time spent with exam, chart review, pt care coordination Vitals Vitals Vital Signs Date Time Temp Pulse Resp B/P (MAP) Pulse Ox O2 Delivery O2 Flow Rate FiO2 06/19/18 11:00 97.9 63 16 148/95 (112) 96 Room Air 97.9 06/19/18 04:23 2.0 Physical Exam Physical Exam GENERAL: Sitting upright in bed, alert, NAD HEENT: Oral cavity, pharynx clear. NECK: Supple, no JVD. LUNGS: Decreased in the bases. HEART: S1, S2. ABDOMEN: Obese, soft, nontender EXTREMITIES: Without clubbing or cyanosis. No gross edema. SKIN: Warm to touch without signs of rash. NEUROLOGIC: Alert and oriented x 3 RUE-PICC (06/16) clean General: Alert, Oriented X3, Cooperative, No acute distress Heart: Regular rate, Normal S1, Normal S2, No murmurs Lungs: Clear (No wheezes, rales, or rhonchi) Abdomen: Normal bowel sounds, Soft, No tenderness Extremities: No cyanosis, No edema, Normal pulses, No tenderness/swelling Skin: No rashes, No breakdown, No significant lesion Labs LABS CT ABD PELV W/ IV CONTRST ONLY Indication: Diverticulitis Technique: Postcontrast CT imaging was performed of the abdomen and pelvis, multiplanar reconstruction images submitted. No oral contrast was given. One or more of the following individualized dose reduction techniques were utilized for this examination: 1. Automated exposure control 2. Adjustment of the mA and/or kV according to patient size 3. Use of iterative reconstruction technique. Comparison: June 11, 2018 Findings: There are now very small pleural effusions bilaterally. There is increased mild free fluid in the abdomen extending along the paracolic gutters bilaterally and about the liver and spleen. Previously seen abscess in the left pelvis is larger, internal gas and fluid as seen on images 63 through 70 located posterior to the proximal to mid sigmoid colon. Pocket of fluid and gas measures larger about 4.9 cm transverse by 4.3 cm AP by 3.8 cm cc, previously about 3.7 cm transverse by 2.4 cm AP by 3.8 cm CC. Adjacent hazy and strandy inflammatory type change is also greater. There is adjacent wall thickening of the sigmoid colon at which there are diverticula present. There is no significant free air on this exam. Bowel is not significantly dilated. Appendix is again dilated to about 1.2 cm with somewhat thickened [place] although there is internal gas present. There are 3 right renal calculi with the largest about 0.7 cm and also 0.2 cm left renal calculus. There is again exophytic lesion posteriorly of the mid left kidney about 2.5 cm transverse by 1.9 cm AP by 2.1 cm CC, density measurements similar to adjacent renal parenchyma concerning for an enhancing lesion. Both kidneys enhance, no hydronephrosis. There again has been cholecystectomy. No new focal abnormality is identified of the liver, spleen, pancreas. There are again postsurgical changes of stomach. There is again left adrenal nodule about 1.2 cm. There is multilevel lumbar facet degenerative change, negligible anterior spondylolisthesis at L4-5. There is degenerative disc disease greatest at L4-5. IMPRESSION: 1. Previously seen left pelvic abscess is larger, adjacent inflammatory-type change also greater. There is now mild free fluid in the abdomen bilaterally. There are now small pleural effusions bilaterally. However there is no significant free air on this exam. 2. There is again exophytic lesion of the left kidney concerning for renal cell carcinoma until proven otherwise. 3. There are again bilateral renal calculi right greater than left. 4. There is again nonspecific left adrenal nodule. Findings discussed with patient's nurse Pedrito at 06/16/2018 10:03 AM. Laboratory Tests Test 06/18/18 17:03 06/18/18 20:56 06/19/18 08:23 06/19/18 10:20 Glucose (Fingerstick) 219 mg/dL (70-99) 187 mg/dL (70-99) 201 mg/dL (70-99) White Blood Count 5.6 x10^3/uL (4.0-11.0) Red Blood Count 4.03 x10^6/uL (4.30-5.70) Hemoglobin 11.3 g/dL (13.0-17.5) Hematocrit 34.2 % (39.0-53.0) Mean Corpuscular Volume 85 fL (79-100) Mean Corpuscular Hemoglobin 28 pg (25-35) Mean Corpuscular Hemoglobin Concent 33 g/dL (31-37) Red Cell Distribution Width 16.1 % (11.5-14.5) Platelet Count 264 x10^3/uL (140-400) Neutrophils (%) (Auto) 62 % (31-73) Lymphocytes (%) (Auto) 21 % (24-48) Monocytes (%) (Auto) 9 % (0-9) Eosinophils (%) (Auto) 6 % (0-3) Basophils (%) (Auto) 1 % (0-3) Neutrophils # (Auto) 3.5 x10^3uL (1.8-7.7) Lymphocytes # (Auto) 1.2 x10^3/uL (1.0-4.8) Monocytes # (Auto) 0.5 x10^3/uL (0.0-1.1) Eosinophils # (Auto) 0.3 x10^3/uL (0.0-0.7) Basophils # (Auto) 0.1 x10^3/uL (0.0-0.2) Sodium Level 138 mmol/L (136-145) Potassium Level 3.7 mmol/L (3.5-5.1) Chloride Level 103 mmol/L (98-107) Carbon Dioxide Level 28 mmol/L (21-32) Anion Gap 7 (6-14) Blood Urea Nitrogen 5 mg/dL (8-26) Creatinine 1.0 mg/dL (0.7-1.3) Estimated GFR (Cockcroft-Gault) 78.5 Glucose Level 223 mg/dL (70-99) Calcium Level 9.1 mg/dL (8.5-10.1) Phosphorus Level 3.1 mg/dL (2.6-4.7) Magnesium Level 1.9 mg/dL (1.8-2.4) Test 06/19/18 11:30 Glucose (Fingerstick) 218 mg/dL (70-99) Assessment and Plan Assessmemt and Plan Problems Medical Problems: (1) Diverticulitis of colon with perforation Status: Acute Comment Review of Relevant I have reviewed the following items thania (where applicable) has been applied. Labs Laboratory Tests Test 06/17/18 16:58 06/17/18 21:03 06/18/18 06:15 06/18/18 06:31 Glucose (Fingerstick) 128 mg/dL (70-99) 129 mg/dL (70-99) 208 mg/dL (70-99) White Blood Count 5.8 x10^3/uL (4.0-11.0) Red Blood Count 3.83 x10^6/uL (4.30-5.70) Hemoglobin 11.0 g/dL (13.0-17.5) Hematocrit 32.7 % (39.0-53.0) Mean Corpuscular Volume 85 fL (79-100) Mean Corpuscular Hemoglobin 29 pg (25-35) Mean Corpuscular Hemoglobin Concent 34 g/dL (31-37) Red Cell Distribution Width 15.7 % (11.5-14.5) Platelet Count 223 x10^3/uL (140-400) Neutrophils (%) (Auto) 70 % (31-73) Lymphocytes (%) (Auto) 16 % (24-48) Monocytes (%) (Auto) 9 % (0-9) Eosinophils (%) (Auto) 5 % (0-3) Basophils (%) (Auto) 0 % (0-3) Neutrophils # (Auto) 4.0 x10^3uL (1.8-7.7) Lymphocytes # (Auto) 0.9 x10^3/uL (1.0-4.8) Monocytes # (Auto) 0.5 x10^3/uL (0.0-1.1) Eosinophils # (Auto) 0.3 x10^3/uL (0.0-0.7) Basophils # (Auto) 0.0 x10^3/uL (0.0-0.2) Sodium Level 141 mmol/L (136-145) Potassium Level 3.1 mmol/L (3.5-5.1) Chloride Level 104 mmol/L (98-107) Carbon Dioxide Level 30 mmol/L (21-32) Anion Gap 7 (6-14) Blood Urea Nitrogen 6 mg/dL (8-26) Creatinine 0.8 mg/dL (0.7-1.3) Estimated GFR (Cockcroft-Gault) 101.5 Glucose Level 227 mg/dL (70-99) Calcium Level 8.8 mg/dL (8.5-10.1) Phosphorus Level 3.1 mg/dL (2.6-4.7) Magnesium Level 1.8 mg/dL (1.8-2.4) Triglycerides Level 187 mg/dL (0-150) Test 06/18/18 12:04 06/18/18 17:03 06/18/18 20:56 06/19/18 08:23 Glucose (Fingerstick) 203 mg/dL (70-99) 219 mg/dL (70-99) 187 mg/dL (70-99) 201 mg/dL (70-99) Test 06/19/18 10:20 06/19/18 11:30 White Blood Count 5.6 x10^3/uL (4.0-11.0) Red Blood Count 4.03 x10^6/uL (4.30-5.70) Hemoglobin 11.3 g/dL (13.0-17.5) Hematocrit 34.2 % (39.0-53.0) Mean Corpuscular Volume 85 fL (79-100) Mean Corpuscular Hemoglobin 28 pg (25-35) Mean Corpuscular Hemoglobin Concent 33 g/dL (31-37) Red Cell Distribution Width 16.1 % (11.5-14.5) Platelet Count 264 x10^3/uL (140-400) Neutrophils (%) (Auto) 62 % (31-73) Lymphocytes (%) (Auto) 21 % (24-48) Monocytes (%) (Auto) 9 % (0-9) Eosinophils (%) (Auto) 6 % (0-3) Basophils (%) (Auto) 1 % (0-3) Neutrophils # (Auto) 3.5 x10^3uL (1.8-7.7) Lymphocytes # (Auto) 1.2 x10^3/uL (1.0-4.8) Monocytes # (Auto) 0.5 x10^3/uL (0.0-1.1) Eosinophils # (Auto) 0.3 x10^3/uL (0.0-0.7) Basophils # (Auto) 0.1 x10^3/uL (0.0-0.2) Sodium Level 138 mmol/L (136-145) Potassium Level 3.7 mmol/L (3.5-5.1) Chloride Level 103 mmol/L (98-107) Carbon Dioxide Level 28 mmol/L (21-32) Anion Gap 7 (6-14) Blood Urea Nitrogen 5 mg/dL (8-26) Creatinine 1.0 mg/dL (0.7-1.3) Estimated GFR (Cockcroft-Gault) 78.5 Glucose Level 223 mg/dL (70-99) Calcium Level 9.1 mg/dL (8.5-10.1) Phosphorus Level 3.1 mg/dL (2.6-4.7) Magnesium Level 1.9 mg/dL (1.8-2.4) Glucose (Fingerstick) 218 mg/dL (70-99) Laboratory Tests Test 06/18/18 17:03 06/18/18 20:56 06/19/18 08:23 06/19/18 10:20 Glucose (Fingerstick) 219 mg/dL (70-99) 187 mg/dL (70-99) 201 mg/dL (70-99) White Blood Count 5.6 x10^3/uL (4.0-11.0) Red Blood Count 4.03 x10^6/uL (4.30-5.70) Hemoglobin 11.3 g/dL (13.0-17.5) Hematocrit 34.2 % (39.0-53.0) Mean Corpuscular Volume 85 fL (79-100) Mean Corpuscular Hemoglobin 28 pg (25-35) Mean Corpuscular Hemoglobin Concent 33 g/dL (31-37) Red Cell Distribution Width 16.1 % (11.5-14.5) Platelet Count 264 x10^3/uL (140-400) Neutrophils (%) (Auto) 62 % (31-73) Lymphocytes (%) (Auto) 21 % (24-48) Monocytes (%) (Auto) 9 % (0-9) Eosinophils (%) (Auto) 6 % (0-3) Basophils (%) (Auto) 1 % (0-3) Neutrophils # (Auto) 3.5 x10^3uL (1.8-7.7) Lymphocytes # (Auto) 1.2 x10^3/uL (1.0-4.8) Monocytes # (Auto) 0.5 x10^3/uL (0.0-1.1) Eosinophils # (Auto) 0.3 x10^3/uL (0.0-0.7) Basophils # (Auto) 0.1 x10^3/uL (0.0-0.2) Sodium Level 138 mmol/L (136-145) Potassium Level 3.7 mmol/L (3.5-5.1) Chloride Level 103 mmol/L (98-107) Carbon Dioxide Level 28 mmol/L (21-32) Anion Gap 7 (6-14) Blood Urea Nitrogen 5 mg/dL (8-26) Creatinine 1.0 mg/dL (0.7-1.3) Estimated GFR (Cockcroft-Gault) 78.5 Glucose Level 223 mg/dL (70-99) Calcium Level 9.1 mg/dL (8.5-10.1) Phosphorus Level 3.1 mg/dL (2.6-4.7) Magnesium Level 1.9 mg/dL (1.8-2.4) Test 06/19/18 11:30 Glucose (Fingerstick) 218 mg/dL (70-99) Medications Current Medications Fentanyl Citrate (Fentanyl 2ml Vial) 50 mcg 1X ONCE IV Last administered on 06/11/18at 22:46; Start 06/11/18 at 22:45; Stop 06/11/18 at 22:46; Status DC Ondansetron HCl (Zofran) 4 mg 1X ONCE IV Last administered on 06/11/18at 22:46; Start 06/11/18 at 22:45; Stop 06/11/18 at 22:46; Status DC Sodium Chloride 1,000 ml @ 1,000 mls/hr 1X ONCE IV Last administered on 06/11/18at 22:47; Start 06/11/18 at 22:45; Stop 06/11/18 at 23:44; Status DC Iohexol (Omnipaque 300 Mg/ml) 75 ml 1X ONCE IV Last administered on 06/11/18at 23:15; Start 06/11/18 at 23:15; Stop 06/11/18 at 23:16; Status DC Info (CONTRAST GIVEN -- Rx MONITORING) 1 each PRN DAILY PRN MC SEE COMMENTS; Start 06/11/18 at 23:15; Stop 06/13/18 at 23:14; Status DC Piperacillin Sod/ Tazobactam Sod (Zosyn Per Pharmacy) 1 each PRN DAILY PRN MC SEE COMMENTS; Start 06/12/18 at 02:30 Hydromorphone HCl (Dilaudid) 1 mg PRN Q4HRS PRN IV MODERATE PAIN Last admi nistered on 06/19/18at 04:23; Start 06/12/18 at 02:00 Ondansetron HCl (Zofran) 4 mg PRN Q8HRS PRN IV NAUSEA/VOMITING; Start 06/12/18 at 02:00; Stop 06/13/18 at 01:59; Status DC Sodium Chloride 1,000 ml @ 100 mls/hr Q10H IV Last administered on 06/13/18at 01:01; Start 06/12/18 at 01:53; Stop 06/13/18 at 01:52; Status DC Piperacillin Sod/ Tazobactam Sod 4.5 gm/Sodium Chloride 100 ml @ 200 mls/hr Q6HRS IV Last administered on 06/19/18 06:17; Start 06/12/18 at 02:30 Tamsulosin HCl (Flomax) 0.4 mg DAILY PO Last administered on 06/19/18at 08:47; Start 06/12/18 at 10:00 Pantoprazole Sodium (PROTONIX VIAL for IV PUSH) 40 mg DAILYAC IVP Last administered on 06/16/18at 10:00; Start 06/12/18 at 10:00; Stop 06/16/18 at 11:40; Status DC Metoprolol Tartrate (Lopressor Vial) 2.5 mg BID IVP Last administered on 06/14/18at 21:34; Start 06/12/18 at 21:00; Stop 06/15/18 at 11:51; Status DC Fentanyl Citrate (Fentanyl 2ml Vial) 100 mcg PRN Q4HRS PRN IV SEVERE PAIN Last administered on 06/15/18at 12:16; Start 06/12/18 at 09:45 Ketorolac Tromethamine (Toradol 15mg Vial) 15 mg 1X ONCE IV Last administered on 06/12/18 11:16; Start 06/12/18 at 09:45; Stop 06/12/18 at 09:46; Status DC Saliva Substitute (Biotene Moisturizing Mouth) 2 spray PRN Q15MIN PRN PO DRY MOUTH Last administered on 06/13/18 11:52; Start 06/12/18 at 09:45 Insulin Human Lispro (HumaLOG) 0-7 UNITS TIDWMEALS SQ Last administered on 06/19/18 08:53; Start 06/12/18 at 12:00 Dextrose (Dextrose 50%-Water Syringe) 12.5 gm PRN Q15MIN PRN IV SEE COMMENTS; Start 06/12/18 at 10:00 Micafungin Sodium 100 mg/Dextrose 100 ml @ 100 mls/hr Q24H IV Last administered on 06/18/18 13:12; Start 06/12/18 at 12:00 Vancomycin HCl (Vanco Per Pharmacy) 1 each PRN DAILY PRN MC SEE COMMENTS Last administered on 06/18/18 13:35; Start 06/12/18 at 10:45 Vancomycin HCl 2 gm/Sodium Chloride 500 ml @ 250 mls/hr 1X ONCE IV Last administered on 06/12/18 14:47; Start 06/12/18 at 11:30; Stop 06/12/18 at 13:29; Status DC Vancomycin HCl 1.75 gm/Sodium Chloride 500 ml @ 250 mls/hr Q12H IV Last administered on 06/19/18 08:45; Start 06/13/18 at 03:00 Vancomycin HCl (Vancomycin Trough Level) 1 each 1X ONCE MC Last administered on 06/14/18 02:30; Start 06/14/18 at 02:30; Stop 06/14/18 at 02:31; Status DC Sodium Chloride 1,000 ml @ 1,000 mls/hr 1X ONCE IV Last administered on 06/13/18 10:35; Start 06/13/18 at 10:30; Stop 06/13/18 at 11:29; Status DC Amino Acids/ Glycerin/ Electrolytes 1,000 ml @ 80 mls/hr [id number] IV Last administered on 4/28/19at 15:12; Start 06/13/18 at 11:00; Stop 06/17/18 at 21:59; Status DC Sodium Monofluorophosphate (Fleet Adult) [address] ; Start 06/13/18 at 11:00; Stop 06/13/18 at 11:00; Status DC Insulin Glargine (Lantus) 8 units DAILY SQ Last administered on 06/19/18 08:54; Start 06/13/18 at 12:30 Sodium Chloride 1,000 ml @ 1,000 mls/hr 1X ONCE IV Last administered on 06/14/18at 10:10; Start 06/14/18 at 09:15; Stop 06/14/18 at 10:14; Status DC Carvedilol (Coreg) 37.5 mg BIDWMEALS PO Last administered on 06/19/18 08:47; Start 06/15/18 at 17:00 Lactobacillus Rhamnosus (Culturelle) 1 cap BID PO Last administered on 06/19/18 08:45; Start 06/15/18 at 21:00 Iohexol (Omnipaque 300 Mg/ml) 75 ml 1X ONCE IV Last administered on 06/16/18at 06:20; Start 06/16/18 at 06:30; Stop 06/16/18 at 06:31; Status DC Info (CONTRAST GIVEN -- Rx MONITORING) 1 each PRN DAILY PRN MC SEE COMMENTS; Start 06/16/18 at 06:15; Stop 06/18/18 at 06:14; Status DC Pantoprazole Sodium (Protonix) 40 mg DAILYAC PO Last administered on 06/19/18 06:18; Start 06/17/18 at 07:30 Amlodipine Besylate (Norvasc) 10 mg DAILY PO Last administered on 06/19/18 08:45; Start 06/16/18 at 16:30 Pseudoephedrine HCl (Sudafed) 30 mg PRN Q6HRS PRN PO NASAL CONGESTION Last administered on 06/17/18 21:29; Start 06/17/18 at 10:00 Acetaminophen (Tylenol) 650 mg PRN Q6HRS PRN PO MILD PAIN / TEMP Last administered on 06/17/18 21:29; Start 06/17/18 at 10:00 Montelukast Sodium (Singulair) 10 mg QHS PO Last administered on 06/18/18 21:00; Start 06/17/18 at 21:00 Cetirizine HCl (ZyrTEC) 10 mg DAILY PO Last administered on 06/19/18at 08:45; Start 06/17/18 at 11:00 Ondansetron HCl (Zofran) 4 mg PRN Q6HRS PRN IV NAUSEA/VOMITING; Start 06/17/18 at 10:00 Info (Tpn Per Pharmacy) 1 each PRN DAILY PRN MC SEE COMMENTS Last administered on 06/18/18at 14:22; Start 06/17/18 at 22:00 Sodium Chloride 90 meq/Potassium Chloride 50 meq/ Potassium Phosphate 13.6 mmol/Magnesium Sulfate 10 meq/ Calcium Gluconate 10 meq/ Multivitamins 10 ml/Chromium/ Copper/Manganese/ Seleni/Zn 1 ml/ Total Parenteral Nutrition/Amino Acids/Dextrose/ Fat Emulsion Intravenous 1,512 ml @ 63 mls/hr TPN CONT IV Last administered on 06/17/18at 22:16; Start 06/17/18 at 22:00; Stop 06/18/18 at 21:59; Status DC Lidocaine/Sodium Bicarbonate (Buffered Lidocaine 1%) 3 ml STK-MED ONCE .ROUTE ; Start 06/18/18 at 13:10; Stop 06/18/18 at 13:11; Status DC Midazolam HCl (Versed) 2 mg STK-MED ONCE .ROUTE ; Start 06/18/18 at 13:25; Stop 06/18/18 at 13:26; Status DC Fentanyl Citrate (Fentanyl 2ml Vial) 100 mcg STK-MED ONCE .ROUTE ; Start 06/18/18 at 13:25; Stop 06/18/18 at 13:26; Status DC Lidocaine/Sodium Bicarbonate (Buffered Lidocaine 1%) 3 ml 1X ONCE IJ Last administered on 06/18/18 13:30; Start 06/18/18 at 13:30; Stop 06/18/18 at 13:47; Status DC Midazolam HCl (Versed) 2 mg 1X ONCE IV Last administered on 06/18/18at 13:30; Start 06/18/18 at 13:30; Stop 06/18/18 at 13:47; Status DC Fentanyl Citrate (Fentanyl 2ml Vial) 100 mcg 1X ONCE IV Last administered on 4/29/19at 13:30; Start 06/18/18 at 13:30; Stop 06/18/18 at 13:47; Status DC Potassium Chloride/Water 50 ml @ 25 mls/hr Q2H IV Last administered on 06/18/18at 17:45; Start 06/18/18 at 15:00; Stop 06/18/18 at 18:59; Status DC Sodium Chloride 90 meq/Potassium Chloride 70 meq/ Potassium Phosphate 13.6 mmol/Magnesium Sulfate 10 meq/ Calcium Gluconate 10 meq/ Multivitamins 10 ml/Chromium/ Copper/Manganese/ Seleni/Zn 1 ml/ Total Parenteral Nutrition/Amino Acids/Dextrose/ Fat Emulsion Intravenous 1,512 ml @ 63 mls/hr TPN CONT IV Last administered on 06/18/18at 22:21; Start 06/18/18 at 22:00; Stop 06/19/18 at 21:59 Active Scripts Active Reported [bariatric vitamins] Citracal + D Er Tablet (Calcium Carb & Cit/Vitamin D3) 1 Each Tablet.er 1 Each PO DAILY Acidophilus (Lactobacillus Acidophilus) 100 Mg Capsule 100 Mg PO DAILY Flomax (Tamsulosin Hcl) 0.4 Mg Cap.er.24h 0.4 Mg PO DAILY Fenofibrate (Fenofibrate Nanocrystallized) 145 Mg Tablet 1 Tab PO DAILY [losartan] Coreg (Carvedilol) 25 Mg Tablet 37.5 Mg PO BIDWMEALS Protonix (Pantoprazole Sodium) 20 Mg Tablet.dr 1 Tab PO DAILY Vitals/I & O Vital Sign - Last 24 Hours 06/18/18 06/18/18 06/18/18 06/18/18 13:30 13:35 13:39 13:50 Pulse 83 73 60 Resp 17 B/P (MAP) 157/94 (115) 155/87 (109) Pulse Ox 95 97 96 O2 Delivery Nasal Cannula Nasal Cannula Nasal Cannula O2 Flow Rate 2.0 2.0 2.0 06/18/18 06/18/18 06/18/18 06/18/18 13:55 14:00 14:05 14:10 Pulse 57 55 58 62 Resp 17 B/P (MAP) 158/91 (113) 148/95 (112) 153/86 (108) 136/93 (107) Pulse Ox 97 97 96 94 O2 Delivery Nasal Cannula Nasal Cannula Nasal Cannula Nasal Cannula O2 Flow Rate 2.0 2.0 2.0 2.0 06/18/18 06/18/18 06/18/18 06/18/18 14:15 14:20 14:25 14:39 Pulse 63 64 63 66 Resp 12 15 16 B/P (MAP) 145/81 (102) 142/90 (107) 130/93 (105) Pulse Ox 95 94 95 94 O2 Delivery Nasal Cannula Nasal Cannula Nasal Cannula Room Air O2 Flow Rate 2.0 2.0 2.0 06/18/18 06/18/18 06/18/18 06/18/18 14:51 15:06 15:21 15:23 Pulse 57 60 68 Resp 16 B/P (MAP) 148/94 (112) 136/97 (110) 139/100 (113) Pulse Ox 93 96 94 O2 Delivery Room Air Room Air Room Air Room Air 06/18/18 06/18/18 06/18/18 06/18/18 15:36 16:07 16:36 17:20 Pulse 63 54 58 58 B/P (MAP) 135/105 (115) 172/101 (124) 164/98 (120) 164/98 Pulse Ox 93 93 93 O2 Delivery Room Air Room Air Room Air 06/18/18 06/18/18 06/18/18 06/18/18 17:36 18:35 19:45 21:01 Pulse 63 57 Resp 16 B/P (MAP) 177/105 (129) 169/97 (121) O2 Delivery Room Air Room Air Room Air Room Air 06/18/18 06/19/18 06/19/18 06/19/18 23:00 03:00 04:23 05:00 Pulse 60 60 Resp 20 20 16 B/P (MAP) 127/76 (93) 151/62 (91) Pulse Ox 94 96 96 O2 Delivery Room Air BiPAP/CPAP BiPAP/CPAP Room Air O2 Flow Rate 2.0 06/19/18 06/19/18 06/19/18 06/19/18 07:00 08:45 08:47 11:00 Temp 97.7 97.9 97.7 97.9 Pulse 63 63 63 63 Resp 16 16 B/P (MAP) 142/93 (109) 142/93 142/93 148/95 (112) Pulse Ox 96 96 O2 Delivery Room Air Room Air Intake and Output 06/18/18 06/18/18 06/19/18 15:00 23:00 07:00 Intake Total 200 ml 350 ml Balance 200 ml 350 ml RUKHSANA GALARZA MD Jun 19, 2018 12:05
[2018-06-19] MEDS: TPN PER PHARMACY MC PRN ×2 (12:14→12:45)
[2018-06-19] MEDS: VANCOMYCIN PER PHARMACY MC PRN (12:51)
--- NOTE | 2018-06-19 13:46 | RAD ---
CT-guided aspiration, pelvic abscess 06/18/2018 Indication: Pelvic abscess Discussion: The risks and benefits of the procedure discussed the patient. Informed consent was obtained. Timeout procedure was performed. CT imaging was performed demonstrating small gas and fluid collection in the left pelvis. This was targeted for aspiration. 1% lidocaine was administered for local anesthesia. Under intermittent CT guidance a 17-gauge needle was advanced into the collection. Small amount of turbid fluid was aspirated and sent for Gram stain and culture. Repeat imaging demonstrates essentially complete evacuation of the abscess cavity. Gas remained. The needles were removed. Manual pressure was held. Sterile dressings were applied. The procedures performed under conscious sedation including continuous cardiopulmonary monitoring via dedicated sedation nurse. [id number] sedation time: 30 minutes Impression: Aspiration of small left pelvic abscess PQRS Compliance Statement: One or more of the following individualized dose reduction techniques were utilized for this examination: 1. Automated exposure control 2. Adjustment of the mA and/or kV according to patient size 3. Use of iterative reconstruction technique
[2018-06-19] MEDS: MICAFUNGIN 100 MG in IV DEXTROSE 5% 100ML 100 ML IV SCH (14:32)
--- NOTE | 2018-06-19 14:36 | PDOC ---
Infectious Disease Note Subjective Subjective feeling good,no complaints ROS ROS no n/v/d/sob Vital Sign Vital Signs Vital Signs Date Time Temp Pulse Resp B/P (MAP) Pulse Ox O2 Delivery O2 Flow Rate FiO2 06/19/18 11:00 97.9 63 16 148/95 (112) 96 Room Air 97.9 06/19/18 04:23 2.0 Physical Exam PHYSICAL EXAM GENERAL: Sitting upright in bed, alert, NAD HEENT: Oral cavity, pharynx clear. NECK: Supple, no JVD. LUNGS: Decreased in the bases. HEART: S1, S2. ABDOMEN: Obese, soft, nontender EXTREMITIES: Without clubbing or cyanosis. No gross edema. SKIN: Warm to touch without signs of rash. NEUROLOGIC: Alert and oriented x 3 RUE-PICC (06/16) clean Labs Lab Laboratory Tests Test 06/18/18 17:03 06/18/18 20:56 06/19/18 08:23 06/19/18 10:20 Glucose (Fingerstick) 219 mg/dL (70-99) 187 mg/dL (70-99) 201 mg/dL (70-99) White Blood Count 5.6 x10^3/uL (4.0-11.0) Red Blood Count 4.03 x10^6/uL (4.30-5.70) Hemoglobin 11.3 g/dL (13.0-17.5) Hematocrit 34.2 % (39.0-53.0) Mean Corpuscular Volume 85 fL (79-100) Mean Corpuscular Hemoglobin 28 pg (25-35) Mean Corpuscular Hemoglobin Concent 33 g/dL (31-37) Red Cell Distribution Width 16.1 % (11.5-14.5) Platelet Count 264 x10^3/uL (140-400) Neutrophils (%) (Auto) 62 % (31-73) Lymphocytes (%) (Auto) 21 % (24-48) Monocytes (%) (Auto) 9 % (0-9) Eosinophils (%) (Auto) 6 % (0-3) Basophils (%) (Auto) 1 % (0-3) Neutrophils # (Auto) 3.5 x10^3uL (1.8-7.7) Lymphocytes # (Auto) 1.2 x10^3/uL (1.0-4.8) Monocytes # (Auto) 0.5 x10^3/uL (0.0-1.1) Eosinophils # (Auto) 0.3 x10^3/uL (0.0-0.7) Basophils # (Auto) 0.1 x10^3/uL (0.0-0.2) Sodium Level 138 mmol/L (136-145) Potassium Level 3.7 mmol/L (3.5-5.1) Chloride Level 103 mmol/L (98-107) Carbon Dioxide Level 28 mmol/L (21-32) Anion Gap 7 (6-14) Blood Urea Nitrogen 5 mg/dL (8-26) Creatinine 1.0 mg/dL (0.7-1.3) Estimated GFR (Cockcroft-Gault) 78.5 Glucose Level 223 mg/dL (70-99) Calcium Level 9.1 mg/dL (8.5-10.1) Phosphorus Level 3.1 mg/dL (2.6-4.7) Magnesium Level 1.9 mg/dL (1.8-2.4) Test 06/19/18 11:30 Glucose (Fingerstick) 218 mg/dL (70-99) Objective Assessment Perforated diverticulitis w/worsening left pelvic abscess on CT 06/16 H/o staph infection recent doxycycline in Mar around his Gastric bypass ? left max sinusitis on CT Sulfa allergy DM Exophytic lesion of the left kidney concerning for renal cell carcinoma. Urology following Plan Plan of Care Cont vanc, Zosyn and Micafungin Await IR consult for drainage and culture done Monitor labs/temp Gen surgery following CHATO LORENZ MD Jun 19, 2018 14:36
[2018-06-19 15:00] VITALS: BP 136/84
[2018-06-19 19:20] VITALS: BP 131/87
[2018-06-19] MEDS: MONTELUKAST SODIUM 10 MG TABLET. PO SCH (21:52)
[2018-06-19] MEDS ORDERED: [UNRECOGNIZED DRUG - OTHER] IV SCH ×10 (22:00)
[2018-06-19] MEDS ORDERED: DEXTROSE 70% IV SCH ×10 (22:00)
[2018-06-19] MEDS ORDERED: TOTAL PARENTERAL NUTRITION IV SCH ×10 (22:00)
[2018-06-19] MEDS ORDERED: AMINO ACID IV SCH ×10 (22:00)
[2018-06-19 23:34] VITALS: BP 128/82
[2018-06-20] MEDS: PIPERACILLIN/TAZOBACTAM 4.5 GM in IV NORMAL SALINE 100ML 100 ML IV SCH ×3 (00:02→12:23)
[2018-06-20 03:22] VITALS: BP 157/92
[2018-06-20] MEDS: PANTOPRAZOLE 40 MG TABLET.DR. PO SCH (05:44)
[2018-06-20 06:13] LABS: BASO # 0.1 x10^3/uL (0.0-0.2); BASO % 1 % (0-3); EOS # 0.3 x10^3/uL (0.0-0.7); EOS % 6 % (0-3); HEMATOCRIT 33.6 % (39.0-53.0); HEMOGLOBIN 11.4 g/dL (13.0-17.5); LYMPH # 1.4 x10^3/uL (1.0-4.8); LYMPH % 24 % (24-48); MEAN CORPUSCULAR HEMOGLOBIN 29 pg (25-35); MEAN CORPUSCULAR HGB CONC 34 g/dL (31-37); MEAN CORPUSCULAR VOLUME 85 fL (79-100); MONO # 0.6 x10^3/uL (0.0-1.1); MONO % 10 % (0-9); NEUT # 3.3 x10^3uL (1.8-7.7); NEUT % 59 % (31-73); PLATELET COUNT 233 x10^3/uL (140-400); RED BLOOD COUNT 3.95 x10^6/uL (4.30-5.70); RED CELL DISTRIBUTION WIDTH 15.6 % (11.5-14.5); WHITE BLOOD COUNT 5.7 x10^3/uL (4.0-11.0)
[2018-06-20 06:23] LABS: CALCIUM 9.4 mg/dL (8.5-10.1); CREATININE 1.1 mg/dL (0.7-1.3); GFR 70.3; PHOSPHORUS 3.4 mg/dL (2.6-4.7); POTASSIUM 3.5 mmol/L (3.5-5.1)
[2018-06-20 07:00] VITALS: BP 146/97
[2018-06-20] MEDS: CARVEDILOL 12.5 MG TABLET. PO SCH (07:52)
[2018-06-20] MEDS: INSULIN LISPRO 300 UNITS/3 ML INSULN.PEN. SQ SCH ×2 (08:07→12:11)
[2018-06-20 08:32] LABS: VANC TR 19.3 mcg/mL (10.0-20.0)
[2018-06-20] MEDS: VANCOMYCIN PER PHARMACY MC PRN (09:10)
[2018-06-20] MEDS: CETIRIZINE HCL 10 MG TABLET. PO SCH (09:17)
[2018-06-20] MEDS: TAMSULOSIN 0.4 MG CAP.ER.24H. PO SCH (09:17)
[2018-06-20] MEDS: LACTOBACILLUS RHAMNOSUS GG 1 CAPSULE. PO SCH (09:17)
[2018-06-20] MEDS: VANCOMYCIN 1.75 GM in IV NORMAL SALINE 500ML BAG 500 ML IV SCH (09:17)
[2018-06-20] MEDS: amLODIPine BESYLATE 10 MG TABLET PO SCH (09:19)
[2018-06-20] MEDS: INSULIN GLARGINE 300 UNITS/3 ML INSULN.PEN. SQ SCH (09:25)
--- NOTE | 2018-06-20 09:43 | PDOC ---
PROGRESS NOTES Subjective Subjective doing well, no pain, princess food Objective Objective Vital Signs Date Time Temp Pulse Resp B/P (MAP) Pulse Ox O2 Delivery O2 Flow Rate FiO2 06/20/18 09:19 58 146/97 06/20/18 07:45 Room Air 06/20/18 07:00 98.3 18 97 98.3 06/19/18 04:23 2.0 Intake and Output 06/20/18 07:00 Intake Total 360 ml Balance 360 ml Intake Oral 360 ml # Voids 2 Physical Exam Abdomen: Soft, No tenderness Heart: Regular rate, Normal S1 Extremities: No clubbing, No cyanosis General: Alert, Oriented X3, Cooperative HEENT: Atraumatic Lungs: Clear to auscultation Neuro: Normal speech Psych/Mental Status: Mental status NL Assessment Assessment Problems Medical Problems: (1) Diverticulitis of colon with perforation Status: Acute Plan Plan of Care Good response to abx/drainage; ok to discharge; pt is interested in elective sigmoid resection, plan for FU in 2-3 weeks in my office and will arrange Comment Review of Relevant I have reviewed the following items thania (where applicable) has been applied. Labs Laboratory Tests Test 06/18/18 12:04 06/18/18 17:03 06/18/18 20:56 06/19/18 08:23 Glucose (Fingerstick) 203 mg/dL (70-99) 219 mg/dL (70-99) 187 mg/dL (70-99) 201 mg/dL (70-99) Test 06/19/18 10:20 06/19/18 11:30 06/19/18 17:06 06/19/18 21:45 White Blood Count 5.6 x10^3/uL (4.0-11.0) Red Blood Count 4.03 x10^6/uL (4.30-5.70) Hemoglobin 11.3 g/dL (13.0-17.5) Hematocrit 34.2 % (39.0-53.0) Mean Corpuscular Volume 85 fL (79-100) Mean Corpuscular Hemoglobin 28 pg (25-35) Mean Corpuscular Hemoglobin Concent 33 g/dL (31-37) Red Cell Distribution Width 16.1 % (11.5-14.5) Platelet Count 264 x10^3/uL (140-400) Neutrophils (%) (Auto) 62 % (31-73) Lymphocytes (%) (Auto) 21 % (24-48) Monocytes (%) (Auto) 9 % (0-9) Eosinophils (%) (Auto) 6 % (0-3) Basophils (%) (Auto) 1 % (0-3) Neutrophils # (Auto) 3.5 x10^3uL (1.8-7.7) Lymphocytes # (Auto) 1.2 x10^3/uL (1.0-4.8) Monocytes # (Auto) 0.5 x10^3/uL (0.0-1.1) Eosinophils # (Auto) 0.3 x10^3/uL (0.0-0.7) Basophils # (Auto) 0.1 x10^3/uL (0.0-0.2) Sodium Level 138 mmol/L (136-145) Potassium Level 3.7 mmol/L (3.5-5.1) Chloride Level 103 mmol/L (98-107) Carbon Dioxide Level 28 mmol/L (21-32) Anion Gap 7 (6-14) Blood Urea Nitrogen 5 mg/dL (8-26) Creatinine 1.0 mg/dL (0.7-1.3) Estimated GFR (Cockcroft-Gault) 78.5 Glucose Level 223 mg/dL (70-99) Calcium Level 9.1 mg/dL (8.5-10.1) Phosphorus Level 3.1 mg/dL (2.6-4.7) Magnesium Level 1.9 mg/dL (1.8-2.4) Glucose (Fingerstick) 218 mg/dL (70-99) 158 mg/dL (70-99) 140 mg/dL (70-99) Test 06/20/18 05:45 06/20/18 07:25 06/20/18 08:10 White Blood Count 5.7 x10^3/uL (4.0-11.0) Red Blood Count 3.95 x10^6/uL (4.30-5.70) Hemoglobin 11.4 g/dL (13.0-17.5) Hematocrit 33.6 % (39.0-53.0) Mean Corpuscular Volume 85 fL (79-100) Mean Corpuscular Hemoglobin 29 pg (25-35) Mean Corpuscular Hemoglobin Concent 34 g/dL (31-37) Red Cell Distribution Width 15.6 % (11.5-14.5) Platelet Count 233 x10^3/uL (140-400) Neutrophils (%) (Auto) 59 % (31-73) Lymphocytes (%) (Auto) 24 % (24-48) Monocytes (%) (Auto) 10 % (0-9) Eosinophils (%) (Auto) 6 % (0-3) Basophils (%) (Auto) 1 % (0-3) Neutrophils # (Auto) 3.3 x10^3uL (1.8-7.7) Lymphocytes # (Auto) 1.4 x10^3/uL (1.0-4.8) Monocytes # (Auto) 0.6 x10^3/uL (0.0-1.1) Eosinophils # (Auto) 0.3 x10^3/uL (0.0-0.7) Basophils # (Auto) 0.1 x10^3/uL (0.0-0.2) Sodium Level 142 mmol/L (136-145) Potassium Level 3.5 mmol/L (3.5-5.1) Chloride Level 107 mmol/L (98-107) Carbon Dioxide Level 25 mmol/L (21-32) Anion Gap 10 (6-14) Blood Urea Nitrogen 7 mg/dL (8-26) Creatinine 1.1 mg/dL (0.7-1.3) Estimated GFR (Cockcroft-Gault) 70.3 Glucose Level 218 mg/dL (70-99) Calcium Level 9.4 mg/dL (8.5-10.1) Phosphorus Level 3.4 mg/dL (2.6-4.7) Magnesium Level 2.0 mg/dL (1.8-2.4) Glucose (Fingerstick) 214 mg/dL (70-99) Vancomycin Level Trough 19.3 mcg/mL (10.0-20.0) Vancomycin Last Dose Date 06/19/18 Vancomycin Last Dose Time 2100 Laboratory Tests Test 06/19/18 10:20 06/19/18 11:30 06/19/18 17:06 06/19/18 21:45 White Blood Count 5.6 x10^3/uL (4.0-11.0) Red Blood Count 4.03 x10^6/uL (4.30-5.70) Hemoglobin 11.3 g/dL (13.0-17.5) Hematocrit 34.2 % (39.0-53.0) Mean Corpuscular Volume 85 fL (79-100) Mean Corpuscular Hemoglobin 28 pg (25-35) Mean Corpuscular Hemoglobin Concent 33 g/dL (31-37) Red Cell Distribution Width 16.1 % (11.5-14.5) Platelet Count 264 x10^3/uL (140-400) Neutrophils (%) (Auto) 62 % (31-73) Lymphocytes (%) (Auto) 21 % (24-48) Monocytes (%) (Auto) 9 % (0-9) Eosinophils (%) (Auto) 6 % (0-3) Basophils (%) (Auto) 1 % (0-3) Neutrophils # (Auto) 3.5 x10^3uL (1.8-7.7) Lymphocytes # (Auto) 1.2 x10^3/uL (1.0-4.8) Monocytes # (Auto) 0.5 x10^3/uL (0.0-1.1) Eosinophils # (Auto) 0.3 x10^3/uL (0.0-0.7) Basophils # (Auto) 0.1 x10^3/uL (0.0-0.2) Sodium Level 138 mmol/L (136-145) Potassium Level 3.7 mmol/L (3.5-5.1) Chloride Level 103 mmol/L (98-107) Carbon Dioxide Level 28 mmol/L (21-32) Anion Gap 7 (6-14) Blood Urea Nitrogen 5 mg/dL (8-26) Creatinine 1.0 mg/dL (0.7-1.3) Estimated GFR (Cockcroft-Gault) 78.5 Glucose Level 223 mg/dL (70-99) Calcium Level 9.1 mg/dL (8.5-10.1) Phosphorus Level 3.1 mg/dL (2.6-4.7) Magnesium Level 1.9 mg/dL (1.8-2.4) Glucose (Fingerstick) 218 mg/dL (70-99) 158 mg/dL (70-99) 140 mg/dL (70-99) Test 06/20/18 05:45 06/20/18 07:25 06/20/18 08:10 White Blood Count 5.7 x10^3/uL (4.0-11.0) Red Blood Count 3.95 x10^6/uL (4.30-5.70) Hemoglobin 11.4 g/dL (13.0-17.5) Hematocrit 33.6 % (39.0-53.0) Mean Corpuscular Volume 85 fL (79-100) Mean Corpuscular Hemoglobin 29 pg (25-35) Mean Corpuscular Hemoglobin Concent 34 g/dL (31-37) Red Cell Distribution Width 15.6 % (11.5-14.5) Platelet Count 233 x10^3/uL (140-400) Neutrophils (%) (Auto) 59 % (31-73) Lymphocytes (%) (Auto) 24 % (24-48) Monocytes (%) (Auto) 10 % (0-9) Eosinophils (%) (Auto) 6 % (0-3) Basophils (%) (Auto) 1 % (0-3) Neutrophils # (Auto) 3.3 x10^3uL (1.8-7.7) Lymphocytes # (Auto) 1.4 x10^3/uL (1.0-4.8) Monocytes # (Auto) 0.6 x10^3/uL (0.0-1.1) Eosinophils # (Auto) 0.3 x10^3/uL (0.0-0.7) Basophils # (Auto) 0.1 x10^3/uL (0.0-0.2) Sodium Level 142 mmol/L (136-145) Potassium Level 3.5 mmol/L (3.5-5.1) Chloride Level 107 mmol/L (98-107) Carbon Dioxide Level 25 mmol/L (21-32) Anion Gap 10 (6-14) Blood Urea Nitrogen 7 mg/dL (8-26) Creatinine 1.1 mg/dL (0.7-1.3) Estimated GFR (Cockcroft-Gault) 70.3 Glucose Level 218 mg/dL (70-99) Calcium Level 9.4 mg/dL (8.5-10.1) Phosphorus Level 3.4 mg/dL (2.6-4.7) Magnesium Level 2.0 mg/dL (1.8-2.4) Glucose (Fingerstick) 214 mg/dL (70-99) Vancomycin Level Trough 19.3 mcg/mL (10.0-20.0) Vancomycin Last Dose Date 06/19/18 Vancomycin Last Dose Time 2100 Medications Current Medications Fentanyl Citrate (Fentanyl 2ml Vial) 50 mcg 1X ONCE IV Last administered on 06/11/18at 22:46; Start 06/11/18 at 22:45; Stop 06/11/18 at 22:46; Status DC Ondansetron HCl (Zofran) 4 mg 1X ONCE IV Last administered on 06/11/18at 22:46; Start 06/11/18 at 22:45; Stop 06/11/18 at 22:46; Status DC Sodium Chloride 1,000 ml @ 1,000 mls/hr 1X ONCE IV Last administered on 06/11/18at 22:47; Start 06/11/18 at 22:45; Stop 06/11/18 at 23:44; Status DC Iohexol (Omnipaque 300 Mg/ml) 75 ml 1X ONCE IV Last administered on 06/11/18at 23:15; Start 06/11/18 at 23:15; Stop 06/11/18 at 23:16; Status DC Info (CONTRAST GIVEN -- Rx MONITORING) 1 each PRN DAILY PRN MC SEE COMMENTS; Start 06/11/18 at 23:15; Stop 06/13/18 at 23:14; Status DC Piperacillin Sod/ Tazobactam Sod (Zosyn Per Pharmacy) 1 each PRN DAILY PRN MC SEE COMMENTS; Start 06/12/18 at 02:30 Hydromorphone HCl (Dilaudid) 1 mg PRN Q4HRS PRN IV MODERATE PAIN Last administered on 06/19/18at 04:23; Start 06/12/18 at 02:00 Ondansetron HCl (Zofran) 4 mg PRN Q8HRS PRN IV NAUSEA/VOMITING; Start 06/12/18 at 02:00; Stop 06/13/18 at 01:59; Status DC Sodium Chloride 1,000 ml @ 100 mls/hr Q10H IV Last administered on 06/13/18at 01:01; Start 06/12/18 at 01:53; Stop 06/13/18 at 01:52; Status DC Piperacillin Sod/ Tazobactam Sod 4.5 gm/Sodium Chloride 100 ml @ 200 mls/hr Q6HRS IV Last administered on 06/20/18 05:44; Start 06/12/18 at 02:30 Tamsulosin HCl (Flomax) 0.4 mg DAILY PO Last administered on 06/20/18 09:17; Start 06/12/18 at 10:00 Pantoprazole Sodium (PROTONIX VIAL for IV PUSH) 40 mg DAILYAC IVP Last administered on 06/16/18 10:00; Start 06/12/18 at 10:00; Stop 06/16/18 at 11:40; Status DC Metoprolol Tartrate (Lopressor Vial) 2.5 mg BID IVP Last administered on 06/14/18 21:34; Start 06/12/18 at 21:00; Stop 06/15/18 at 11:51; Status DC Fentanyl Citrate (Fentanyl 2ml Vial) 100 mcg PRN Q4HRS PRN IV SEVERE PAIN Last administered on 06/15/18 12:16; Start 06/12/18 at 09:45 Ketorolac Tromethamine (Toradol 15mg Vial) 15 mg 1X ONCE IV Last administered on 06/12/18 11:16; Start 06/12/18 at 09:45; Stop 06/12/18 at 09:46; Status DC Saliva Substitute (Biotene Moisturizing Mouth) 2 spray PRN Q15MIN PRN PO DRY MOUTH Last administered on 06/13/18 11:52; Start 06/12/18 at 09:45 Insulin Human Lispro (HumaLOG) 0-7 UNITS TIDWMEALS SQ Last administered on 06/20/18 08:07; Start 06/12/18 at 12:00 Dextrose (Dextrose 50%-Water Syringe) 12.5 gm PRN Q15MIN PRN IV SEE COMMENTS; Start 06/12/18 at 10:00 Micafungin Sodium 100 mg/Dextrose 100 ml @ 100 mls/hr Q24H IV Last administered on 06/19/18 14:32; Start 06/12/18 at 12:00 Vancomycin HCl (Vanco Per Pharmacy) 1 each PRN DAILY PRN MC SEE COMMENTS Last administered on 5/1/19at 09:10; Start 06/12/18 at 10:45 Vancomycin HCl 2 gm/Sodium Chloride 500 ml @ 250 mls/hr 1X ONCE IV Last administered on 06/12/18at 14:47; Start 06/12/18 at 11:30; Stop 06/12/18 at 13:29; Status DC Vancomycin HCl 1.75 gm/Sodium Chloride 500 ml @ 250 mls/hr Q12H IV Last administered on 06/20/18 09:17; Start 06/13/18 at 03:00 Vancomycin HCl (Vancomycin Trough Level) 1 each 1X ONCE MC Last administered on 06/14/18at 02:30; Start 06/14/18 at 02:30; Stop 06/14/18 at 02:31; Status DC Sodium Chloride 1,000 ml @ 1,000 mls/hr 1X ONCE IV Last administered on 06/13/18at 10:35; Start 06/13/18 at 10:30; Stop 06/13/18 at 11:29; Status DC Amino Acids/ Glycerin/ Electrolytes 1,000 ml @ 80 mls/hr [id number] IV Last administered on 06/17/18at 15:12; Start 06/13/18 at 11:00; Stop 06/17/18 at 21:59; Status DC Sodium Monofluorophosphate (Fleet Adult) 133 ml 1X ONCE MT ; Start 06/13/18 at 11:00; Stop 06/13/18 at 11:00; Status DC Insulin Glargine (Lantus) 8 units DAILY SQ Last administered on 06/20/18 09:25; Start 06/13/18 at 12:30 Sodium Chloride 1,000 ml @ 1,000 mls/hr 1X ONCE IV Last administered on 06/14/18at 10:10; Start 06/14/18 at 09:15; Stop 06/14/18 at 10:14; Status DC Carvedilol (Coreg) 37.5 mg BIDWMEALS PO Last administered on 06/20/18 07:52; Start 06/15/18 at 17:00 Lactobacillus Rhamnosus (Culturelle) 1 cap BID PO Last administered on 06/20/18at 09:17; Start 06/15/18 at 21:00 Iohexol (Omnipaque 300 Mg/ml) 75 ml 1X ONCE IV Last administered on 06/16/18 06:20; Start 06/16/18 at 06:30; Stop 06/16/18 at 06:31; Status DC Info (CONTRAST GIVEN -- Rx MONITORING) 1 each PRN DAILY PRN MC SEE COMMENTS; Start 06/16/18 at 06:15; Stop 06/18/18 at 06:14; Status DC Pantoprazole Sodium (Protonix) 40 mg DAILYAC PO Last administered on 06/20/18 05:44; Start 06/17/18 at 07:30 Amlodipine Besylate (Norvasc) 10 mg DAILY PO Last administered on 06/20/18 09:19; Start 06/16/18 at 16:30 Pseudoephedrine HCl (Sudafed) 30 mg PRN Q6HRS PRN PO NASAL CONGESTION Last adm inistered on 06/17/18 21:29; Start 06/17/18 at 10:00 Acetaminophen (Tylenol) 650 mg PRN Q6HRS PRN PO MILD PAIN / TEMP Last adm inistered on 06/17/18 21:29; Start 06/17/18 at 10:00 Montelukast Sodium (Singulair) 10 mg QHS PO Last administered on 06/19/18 21:52; Start 06/17/18 at 21:00 Cetirizine HCl (ZyrTEC) 10 mg DAILY PO Last administered on 06/20/18 09:17; Start 06/17/18 at 11:00 Ondansetron HCl (Zofran) 4 mg PRN Q6HRS PRN IV NAUSEA/VOMITING; Start 06/17/18 at 10:00 Info (Tpn Per Pharmacy) 1 each PRN DAILY PRN MC SEE COMMENTS Last administered on 06/19/18 12:45; Start 06/17/18 at 22:00 Sodium Chloride 90 meq/Potassium Chloride 50 meq/ Potassium Phosphate 13.6 mmol/Magnesium Sulfate 10 meq/ Calcium Gluconate 10 meq/ Multivitamins 10 ml/Chromium/ Copper/Manganese/ Seleni/Zn 1 ml/ Total Parenteral Nutrition/Amino Acids/Dextrose/ Fat Emulsion Intravenous 1,512 ml @ 63 mls/hr TPN CONT IV Last administered on 06/17/18 22:16; Start 06/17/18 at 22:00; Stop 06/18/18 at 21:59; Status DC Lidocaine/Sodium Bicarbonate (Buffered Lidocaine 1%) 3 ml STK-MED ONCE .ROUTE ; Start 06/18/18 at 13:10; Stop 06/18/18 at 13:11; Status DC Midazolam HCl (Versed) 2 mg STK-MED ONCE .ROUTE ; Start 06/18/18 at 13:25; Stop 06/18/18 at 13:26; Status DC Fentanyl Citrate (Fentanyl 2ml Vial) 100 mcg STK-MED ONCE .ROUTE ; Start 06/18/18 at 13:25; Stop 06/18/18 at 13:26; Status DC Lidocaine/Sodium Bicarbonate (Buffered Lidocaine 1%) 3 ml 1X ONCE IJ Last administered on 06/18/18at 13:30; Start 06/18/18 at 13:30; Stop 06/18/18 at 1 3:47; Status DC Midazolam HCl (Versed) 2 mg 1X ONCE IV Last administered on 06/18/18at 13:30; Start 06/18/18 at 13:30; Stop 06/18/18 at 13:47; Status DC Fentanyl Citrate (Fentanyl 2ml Vial) 100 mcg 1X ONCE IV Last administered on 06/18/18at 13:30; Start 06/18/18 at 13:30; Stop 06/18/18 at 13:47; Status DC Potassium Chloride/Water 50 ml @ 25 mls/hr Q2H IV Last administered on 06/18/18at 17:45; Start 06/18/18 at 15:00; Stop 06/18/18 at 18:59; Status DC Sodium Chloride 90 meq/Potassium Chloride 70 meq/ Potassium Phosphate 13.6 mmol/Magnesium Sulfate 10 meq/ Calcium Gluconate 10 meq/ Multivitamins 10 ml/Chromium/ Copper/Manganese/ Seleni/Zn 1 ml/ Total Parenteral Nutrition/Amino Acids/Dextrose/ Fat Emulsion Intravenous 1,512 ml @ 63 mls/hr TPN CONT IV L ast administered on 06/18/18at 22:21; Start 06/18/18 at 22:00; Stop 06/19/18 at 21:59; Status DC Sodium Chloride 90 meq/Potassium Chloride 70 meq/ Potassium Phosphate 13.6 mmol/Magnesium Sulfate 10 meq/ Calcium Gluconate 10 meq/ Multivitamins 10 ml/Chromium/ Copper/Manganese/ Seleni/Zn 1 ml/ Total Parenteral Nutrition/Amino Acids/Dextrose/ Fat Emulsion Intravenous 1,512 ml @ 63 mls/hr TPN CONT IV Last administered on 06/19/18at 21:53; Start 06/19/18 at 22:00; Stop 06/20/18 at 21:59 Vancomycin HCl (Vancomycin Trough Level) 1 each 1X ONCE MC ; Start 06/20/18 at 08:30; Stop 06/20/18 at 08:31; Status DC Active Scripts Active Reported [bariatric vitamins] Citracal + D Er Tablet (Calcium Carb & Cit/Vitamin D3) 1 Each Tablet.er 1 Each PO DAILY Acidophilus (Lactobacillus Acidophilus) 100 Mg Capsule 100 Mg PO DAILY Flomax (Tamsulosin Hcl) 0.4 Mg Cap.er.24h 0.4 Mg PO DAILY Fenofibrate (Fenofibrate Nanocrystallized) 145 Mg Tablet 1 Tab PO DAILY [losartan] Coreg (Carvedilol) 25 Mg Tablet 37.5 Mg PO BIDWMEALS Protonix (Pantoprazole Sodium) 20 Mg Tablet. 1 Tab PO DAILY Vitals/I & O Vital Sign - Last 24 Hours 06/19/18 06/19/18 06/19/18 06/19/18 11:00 15:00 17:34 19:20 Temp 97.9 98.6 98.4 97.9 98.6 98.4 Pulse 63 72 72 71 Resp 16 16 18 B/P (MAP) 148/95 (112) 136/84 (101) 136/84 131/87 (102) Pulse Ox 96 97 95 O2 Delivery Room Air Room Air Room Air 06/19/18 06/19/18 06/20/18 06/20/18 20:30 23:34 03:22 07:00 Temp 98.3 97.5 98.3 98.3 97.5 98.3 Pulse 75 64 58 Resp 18 18 18 B/P (MAP) 128/82 (97) 157/92 (113) 146/97 (113) Pulse Ox 96 97 97 O2 Delivery Room Air Room Air BiPAP/CPAP Room Air 06/20/18 06/20/18 06/20/18 07:45 07:52 09:19 Pulse 64 58 B/P (MAP) 146/97 146/97 O2 Delivery Room Air Intake and Output 06/19/18 06/19/18 06/20/18 15:00 23:00 07:00 Intake Total 360 ml Balance 360 ml DANIELE GREY MD June 20, 2018 09:43
--- NOTE | 2018-06-20 10:54 | PDOC ---
Infectious Disease Note Subjective Subjective feeling good,no complaints,, ready to go home ROS ROS no n/v/d/sob Vital Sign Vital Signs Vital Signs Date Time Temp Pulse Resp B/P (MAP) Pulse Ox O2 Delivery O2 Flow Rate FiO2 06/20/18 09:19 58 146/97 06/20/18 07:45 Room Air 06/20/18 07:00 98.3 18 97 98.3 Physical Exam PHYSICAL EXAM GENERAL: Sitting upright in bed, alert, NAD HEENT: Oral cavity, pharynx clear. NECK: Supple, no JVD. LUNGS: Decreased in the bases. HEART: S1, S2. ABDOMEN: Obese, soft, nontender EXTREMITIES: Without clubbing or cyanosis. No gross edema. SKIN: Warm to touch without signs of rash. NEUROLOGIC: Alert and oriented x 3 RUE-PICC (06/16) clean Labs Lab Laboratory Tests Test 06/19/18 11:30 06/19/18 17:06 06/19/18 21:45 06/20/18 05:45 Glucose (Fingerstick) 218 mg/dL (70-99) 158 mg/dL (70-99) 140 mg/dL (70-99) White Blood Count 5.7 x10^3/uL (4.0-11.0) Red Blood Count 3.95 x10^6/uL (4.30-5.70) Hemoglobin 11.4 g/dL (13.0-17.5) Hematocrit 33.6 % (39.0-53.0) Mean Corpuscular Volume 85 fL (79-100) Mean Corpuscular Hemoglobin 29 pg (25-35) Mean Corpuscular Hemoglobin Concent 34 g/dL (31-37) Red Cell Distribution Width 15.6 % (11.5-14.5) Platelet Count 233 x10^3/uL (140-400) Neutrophils (%) (Auto) 59 % (31-73) Lymphocytes (%) (Auto) 24 % (24-48) Monocytes (%) (Auto) 10 % (0-9) Eosinophils (%) (Auto) 6 % (0-3) Basophils (%) (Auto) 1 % (0-3) Neutrophils # (Auto) 3.3 x10^3uL (1.8-7.7) Lymphocytes # (Auto) 1.4 x10^3/uL (1.0-4.8) Monocytes # (Auto) 0.6 x10^3/uL (0.0-1.1) Eosinophils # (Auto) 0.3 x10^3/uL (0.0-0.7) Basophils # (Auto) 0.1 x10^3/uL (0.0-0.2) Sodium Level 142 mmol/L (136-145) Potassium Level 3.5 mmol/L (3.5-5.1) Chloride Level 107 mmol/L (98-107) Carbon Dioxide Level 25 mmol/L (21-32) Anion Gap 10 (6-14) Blood Urea Nitrogen 7 mg/dL (8-26) Creatinine 1.1 mg/dL (0.7-1.3) Estimated GFR (Cockcroft-Gault) 70.3 Glucose Level 218 mg/dL (70-99) Calcium Level 9.4 mg/dL (8.5-10.1) Phosphorus Level 3.4 mg/dL (2.6-4.7) Magnesium Level 2.0 mg/dL (1.8-2.4) Test 06/20/18 07:25 06/20/18 08:10 Glucose (Fingerstick) 214 mg/dL (70-99) Vancomycin Level Trough 19.3 mcg/mL (10.0-20.0) Vancomycin Last Dose Date 06/19/18 Vancomycin Last Dose Time 2100 Objective Assessment Perforated diverticulitis w/worsening left pelvic abscess on CT 06/16 H/o staph infection recent doxycycline in [place] around his Gastric bypass ? left max sinusitis on CT Sulfa allergy DM Exophytic lesion of the left kidney concerning for renal cell carcinoma. Urology following Plan Plan of Care Cont vanc, Zosyn and Micafungin,,, change to iv invanz culture is still pending, pt was informed, he need to call my office on Monday for results and adjustment if needed pt to go on iv, ( oral option given, does not feel comfortable says ) f/u with me in 10-14 days CHATO LORENZ MD June 20, 2018 10:54
[2018-06-20 11:00] VITALS: BP 151/89
[2018-06-20] MEDS: MICAFUNGIN 100 MG in IV DEXTROSE 5% 100ML 100 ML IV SCH (12:04)
--- NOTE | 2018-06-20 12:21 | PDOC ---
PROGRESS NOTES Chief Complaint Chief Complaint peritonitis perforated diverticulitis Incidental finding of a left one-inch renal mass awaiting eventual cryotherapy exophytic lesion of the left kidney concerning for renal cell carcinoma until proven otherwise. reviewed CT drain placement. Collection appeared slightly smaller. Collection was aspirated under CT with essentially all contents removed. These were sent for gram stain and culture. Drain was not placed, as collapsed cavity made this unfeasible. History of Present Illness History of Present Illness Patient was seen and examined Discussed the case at length with him Reviewed the films Would repeat ct imaging to confirm resolution as patient approaches end of antibiotic therapy or if there is clinical change. 35 min pt exam, d/c planning chart review, > 50% of time spent with exam, chart review, pt care coordination cont iv invanz 1 gm daily x 2 weeks Vitals Vitals Vital Signs Date Time Temp Pulse Resp B/P (MAP) Pulse Ox O2 Delivery O2 Flow Rate FiO2 06/20/18 09:19 58 146/97 06/20/18 07:45 Room Air 06/20/18 07:00 98.3 18 97 98.3 Physical Exam Physical Exam GENERAL: Sitting upright in bed, alert, NAD HEENT: Oral cavity, pharynx clear. NECK: Supple, no JVD. LUNGS: Decreased in the bases. HEART: S1, S2. ABDOMEN: Obese, soft, nontender EXTREMITIES: Without clubbing or cyanosis. No gross edema. SKIN: Warm to touch without signs of rash. NEUROLOGIC: Alert and oriented x 3 RUE-PICC (06/16) clean General: Alert, Oriented X3, Cooperative Heart: Regular rate, Normal S1 Lungs: Clear (No wheezes, rales, or rhonchi) Abdomen: Soft, No tenderness Extremities: No clubbing, No cyanosis Skin: No rashes, No breakdown, No significant lesion Labs LABS Laboratory Tests Test 06/19/18 17:06 06/19/18 21:45 06/20/18 05:45 06/20/18 07:25 Glucose (Fingerstick) 158 mg/dL (70-99) 140 mg/dL (70-99) 214 mg/dL (70-99) White Blood Count 5.7 x10^3/uL (4.0-11.0) Red Blood Count 3.95 x10^6/uL (4.30-5.70) Hemoglobin 11.4 g/dL (13.0-17.5) Hematocrit 33.6 % (39.0-53.0) Mean Corpuscular Volume 85 fL (79-100) Mean Corpuscular Hemoglobin 29 pg (25-35) Mean Corpuscular Hemoglobin Concent 34 g/dL (31-37) Red Cell Distribution Width 15.6 % (11.5-14.5) Platelet Count 233 x10^3/uL (140-400) Neutrophils (%) (Auto) 59 % (31-73) Lymphocytes (%) (Auto) 24 % (24-48) Monocytes (%) (Auto) 10 % (0-9) Eosinophils (%) (Auto) 6 % (0-3) Basophils (%) (Auto) 1 % (0-3) Neutrophils # (Auto) 3.3 x10^3uL (1.8-7.7) Lymphocytes # (Auto) 1.4 x10^3/uL (1.0-4.8) Monocytes # (Auto) 0.6 x10^3/uL (0.0-1.1) Eosinophils # (Auto) 0.3 x10^3/uL (0.0-0.7) Basophils # (Auto) 0.1 x10^3/uL (0.0-0.2) Sodium Level 142 mmol/L (136-145) Potassium Level 3.5 mmol/L (3.5-5.1) Chloride Level 107 mmol/L (98-107) Carbon Dioxide Level 25 mmol/L (21-32) Anion Gap 10 (6-14) Blood Urea Nitrogen 7 mg/dL (8-26) Creatinine 1.1 mg/dL (0.7-1.3) Estimated GFR (Cockcroft-Gault) 70.3 Glucose Level 218 mg/dL (70-99) Calcium Level 9.4 mg/dL (8.5-10.1) Phosphorus Level 3.4 mg/dL (2.6-4.7) Magnesium Level 2.0 mg/dL (1.8-2.4) Test 06/20/18 08:10 06/20/18 11:16 Vancomycin Level Trough 19.3 mcg/mL (10.0-20.0) Vancomycin Last Dose Date 06/19/18 Vancomycin Last Dose Time 2100 Glucose (Fingerstick) 164 mg/dL (70-99) Assessment and Plan Assessmemt and Plan Problems Medical Problems: (1) Diverticulitis of colon with perforation Status: Acute Comment Review of Relevant I have reviewed the following items thania (where applicable) has been applied. Labs Laboratory Tests Test 06/18/18 17:03 06/18/18 20:56 06/19/18 08:23 06/19/18 10:20 Glucose (Fingerstick) 219 mg/dL (70-99) 187 mg/dL (70-99) 201 mg/dL (70-99) White Blood Count 5.6 x10^3/uL (4.0-11.0) Red Blood Count 4.03 x10^6/uL (4.30-5.70) Hemoglobin 11.3 g/dL (13.0-17.5) Hematocrit 34.2 % (39.0-53.0) Mean Corpuscular Volume 85 fL (79-100) Mean Corpuscular Hemoglobin 28 pg (25-35) Mean Corpuscular Hemoglobin Concent 33 g/dL (31-37) Red Cell Distribution Width 16.1 % (11.5-14.5) Platelet Count 264 x10^3/uL (140-400) Neutrophils (%) (Auto) 62 % (31-73) Lymphocytes (%) (Auto) 21 % (24-48) Monocytes (%) (Auto) 9 % (0-9) Eosinophils (%) (Auto) 6 % (0-3) Basophils (%) (Auto) 1 % (0-3) Neutrophils # (Auto) 3.5 x10^3uL (1.8-7.7) Lymphocytes # (Auto) 1.2 x10^3/uL (1.0-4.8) Monocytes # (Auto) 0.5 x10^3/uL (0.0-1.1) Eosinophils # (Auto) 0.3 x10^3/uL (0.0-0.7) Basophils # (Auto) 0.1 x10^3/uL (0.0-0.2) Sodium Level 138 mmol/L (136-145) Potassium Level 3.7 mmol/L (3.5-5.1) Chloride Level 103 mmol/L (98-107) Carbon Dioxide Level 28 mmol/L (21-32) Anion Gap 7 (6-14) Blood Urea Nitrogen 5 mg/dL (8-26) Creatinine 1.0 mg/dL (0.7-1.3) Estimated GFR (Cockcroft-Gault) 78.5 Glucose Level 223 mg/dL (70-99) Calcium Level 9.1 mg/dL (8.5-10.1) Phosphorus Level 3.1 mg/dL (2.6-4.7) Magnesium Level 1.9 mg/dL (1.8-2.4) Test 06/19/18 11:30 06/19/18 17:06 06/19/18 21:45 06/20/18 05:45 Glucose (Fingerstick) 218 mg/dL (70-99) 158 mg/dL (70-99) 140 mg/dL (70-99) White Blood Count 5.7 x10^3/uL (4.0-11.0) Red Blood Count 3.95 x10^6/uL (4.30-5.70) Hemoglobin 11.4 g/dL (13.0-17.5) Hematocrit 33.6 % (39.0-53.0) Mean Corpuscular Volume 85 fL (79-100) Mean Corpuscular Hemoglobin 29 pg (25-35) Mean Corpuscular Hemoglobin Concent 34 g/dL (31-37) Red Cell Distribution Width 15.6 % (11.5-14.5) Platelet Count 233 x10^3/uL (140-400) Neutrophils (%) (Auto) 59 % (31-73) Lymphocytes (%) (Auto) 24 % (24-48) Monocytes (%) (Auto) 10 % (0-9) Eosinophils (%) (Auto) 6 % (0-3) Basophils (%) (Auto) 1 % (0-3) Neutrophils # (Auto) 3.3 x10^3uL (1.8-7.7) Lymphocytes # (Auto) 1.4 x10^3/uL (1.0-4.8) Monocytes # (Auto) 0.6 x10^3/uL (0.0-1.1) Eosinophils # (Auto) 0.3 x10^3/uL (0.0-0.7) Basophils # (Auto) 0.1 x10^3/uL (0.0-0.2) Sodium Level 142 mmol/L (136-145) Potassium Level 3.5 mmol/L (3.5-5.1) Chloride Level 107 mmol/L (98-107) Carbon Dioxide Level 25 mmol/L (21-32) Anion Gap 10 (6-14) Blood Urea Nitrogen 7 mg/dL (8-26) Creatinine 1.1 mg/dL (0.7-1.3) Estimated GFR (Cockcroft-Gault) 70.3 Glucose Level 218 mg/dL (70-99) Calcium Level 9.4 mg/dL (8.5-10.1) Phosphorus Level 3.4 mg/dL (2.6-4.7) Magnesium Level 2.0 mg/dL (1.8-2.4) Test 06/20/18 07:25 06/20/18 08:10 06/20/18 11:16 Glucose (Fingerstick) 214 mg/dL (70-99) 164 mg/dL (70-99) Vancomycin Level Trough 19.3 mcg/mL (10.0-20.0) Vancomycin Last Dose Date 06/19/18 Vancomycin Last Dose Time 2100 Laboratory Tests Test 06/19/18 17:06 06/19/18 21:45 06/20/18 05:45 06/20/18 07:25 Glucose (Fingerstick) 158 mg/dL (70-99) 140 mg/dL (70-99) 214 mg/dL (70-99) White Blood Count 5.7 x10^3/uL (4.0-11.0) Red Blood Count 3.95 x10^6/uL (4.30-5.70) Hemoglobin 11.4 g/dL (13.0-17.5) Hematocrit 33.6 % (39.0-53.0) Mean Corpuscular Volume 85 fL (79-100) Mean Corpuscular Hemoglobin 29 pg (25-35) Mean Corpuscular Hemoglobin Concent 34 g/dL (31-37) Red Cell Distribution Width 15.6 % (11.5-14.5) Platelet Count 233 x10^3/uL (140-400) Neutrophils (%) (Auto) 59 % (31-73) Lymphocytes (%) (Auto) 24 % (24-48) Monocytes (%) (Auto) 10 % (0-9) Eosinophils (%) (Auto) 6 % (0-3) Basophils (%) (Auto) 1 % (0-3) Neutrophils # (Auto) 3.3 x10^3uL (1.8-7.7) Lymphocytes # (Auto) 1.4 x10^3/uL (1.0-4.8) Monocytes # (Auto) 0.6 x10^3/uL (0.0-1.1) Eosinophils # (Auto) 0.3 x10^3/uL (0.0-0.7) Basophils # (Auto) 0.1 x10^3/uL (0.0-0.2) Sodium Level 142 mmol/L (136-145) Potassium Level 3.5 mmol/L (3.5-5.1) Chloride Level 107 mmol/L (98-107) Carbon Dioxide Level 25 mmol/L (21-32) Anion Gap 10 (6-14) Blood Urea Nitrogen 7 mg/dL (8-26) Creatinine 1.1 mg/dL (0.7-1.3) Estimated GFR (Cockcroft-Gault) 70.3 Glucose Level 218 mg/dL (70-99) Calcium Level 9.4 mg/dL (8.5-10.1) Phosphorus Level 3.4 mg/dL (2.6-4.7) Magnesium Level 2.0 mg/dL (1.8-2.4) Test 06/20/18 08:10 06/20/18 11:16 Vancomycin Level Trough 19.3 mcg/mL (10.0-20.0) Vancomycin Last Dose Date 06/19/18 Vancomycin Last Dose Time 2100 Glucose (Fingerstick) 164 mg/dL (70-99) Medications Current Medications Fentanyl Citrate (Fentanyl 2ml Vial) 50 mcg 1X ONCE IV Last administered on 06/11/18at 22:46; Start 06/11/18 at 22:45; Stop 06/11/18 at 22:46; Status DC Ondansetron HCl (Zofran) 4 mg 1X ONCE IV Last administered on 06/11/18at 22:46; Start 06/11/18 at 22:45; Stop 06/11/18 at 22:46; Status DC Sodium Chloride 1,000 ml @ 1,000 mls/hr 1X ONCE IV Last administered on 06/11/18at 22:47; Start 06/11/18 at 22:45; Stop 06/11/18 at 23:44; Status DC Iohexol (Omnipaque 300 Mg/ml) 75 ml 1X ONCE IV Last administered on 06/11/18at 23:15; Start 06/11/18 at 23:15; Stop 06/11/18 at 23:16; Status DC Info (CONTRAST GIVEN -- Rx MONITORING) 1 each PRN DAILY PRN MC SEE COMMENTS; Start 06/11/18 at 23:15; Stop 06/13/18 at 23:14; Status DC Piperacillin Sod/ Tazobactam Sod (Zosyn Per Pharmacy) 1 each PRN DAILY PRN MC SEE COMMENTS; Start 06/12/18 at 02:30 Hydromorphone HCl (Dilaudid) 1 mg PRN Q4HRS PRN IV MODERATE PAIN Last administered on 06/19/18at 04:23; Start 06/12/18 at 02:00 Ondansetron HCl (Zofran) 4 mg PRN Q8HRS PRN IV NAUSEA/VOMITING; Start 06/12/18 at 02:00; Stop 06/13/18 at 01:59; Status DC Sodium Chloride 1,000 ml @ 100 mls/hr Q10H IV Last administered on 06/13/18at 01:01; Start 06/12/18 at 01:53; Stop 06/13/18 at 01:52; Status DC Piperacillin Sod/ Tazobactam Sod 4.5 gm/Sodium Chloride 100 ml @ 200 mls/hr Q6HRS IV Last administered on 06/20/18at 05:44; Start 06/12/18 at 02:30 Tamsulosin HCl (Flomax) 0.4 mg DAILY PO Last administered on 06/20/18at 09:17; Start 06/12/18 at 10:00 Pantoprazole Sodium (PROTONIX VIAL for IV PUSH) 40 mg DAILYAC IVP Last administered on 06/16/18at 10:00; Start 06/12/18 at 10:00; Stop 06/16/18 at 11:40; Status DC Metoprolol Tartrate (Lopressor Vial) 2.5 mg BID IVP Last administered on 06/14/18at 21:34; Start 06/12/18 at 21:00; Stop 06/15/18 at 11:51; Status DC Fentanyl Citrate (Fentanyl 2ml Vial) 100 mcg PRN Q4HRS PRN IV SEVERE PAIN Last administered on 06/15/18 12:16; Start 06/12/18 at 09:45 Ketorolac Tromethamine (Toradol 15mg Vial) 15 mg 1X ONCE IV Last administered on 06/12/18 11:16; Start 06/12/18 at 09:45; Stop 06/12/18 at 09:46; Status DC Saliva Substitute (Biotene Moisturizing Mouth) 2 spray PRN Q15MIN PRN PO DRY MOUTH Last administered on 06/13/18 11:52; Start 06/12/18 at 09:45 Insulin Human Lispro (HumaLOG) 0-7 UNITS TIDWMEALS SQ Last administered on 06/20/18 12:11; Start 06/12/18 at 12:00 Dextrose (Dextrose 50%-Water Syringe) 12.5 gm PRN Q15MIN PRN IV SEE COMMENTS; Start 06/12/18 at 10:00 Micafungin Sodium 100 mg/Dextrose 100 ml @ 100 mls/hr Q24H IV Last administered on 06/20/18 12:04; Start 06/12/18 at 12:00 Vancomycin HCl (Vanco Per Pharmacy) 1 each PRN DAILY PRN MC SEE COMMENTS Last administered on 06/20/18 09:10; Start 06/12/18 at 10:45 Vancomycin HCl 2 gm/Sodium Chloride 500 ml @ 250 mls/hr 1X ONCE IV Last administered on 06/12/18 14:47; Start 06/12/18 at 11:30; Stop 06/12/18 at 13:29; Status DC Vancomycin HCl 1.75 gm/Sodium Chloride 500 ml @ 250 mls/hr Q12H IV Last administered on 06/20/18 09:17; Start 06/13/18 at 03:00 Vancomycin HCl (Vancomycin Trough Level) 1 each 1X ONCE MC Last administered on 06/14/18 02:30; Start 06/14/18 at 02:30; Stop 06/14/18 at 02:31; Status DC Sodium Chloride 1,000 ml @ 1,000 mls/hr 1X ONCE IV Last administered on 4/24/19at 10:35; Start 06/13/18 at 10:30; Stop 06/13/18 at 11:29; Status DC Amino Acids/ Glycerin/ Electrolytes 1,000 ml @ 80 mls/hr [id number] IV Last administered on 06/17/18at 15:12; Start 06/13/18 at 11:00; Stop 06/17/18 at 21:59; Status DC Sodium Monofluorophosphate (Fleet Adult) 133 ml 1X ONCE SD ; Start 06/13/18 at 11:00; Stop 06/13/18 at 11:00; Status DC Insulin Glargine (Lantus) 8 units DAILY SQ Last administered on 06/20/18at 09:25; Start 06/13/18 at 12:30 Sodium Chloride 1,000 ml @ 1,000 mls/hr 1X ONCE IV Last administered on 06/14/18at 10:10; Start 06/14/18 at 09:15; Stop 06/14/18 at 10:14; Status DC Carvedilol (Coreg) 37.5 mg BIDWMEALS PO Last administered on 06/20/18at 07:52; Start 06/15/18 at 17:00 Lactobacillus Rhamnosus (Culturelle) 1 cap BID PO Last administered on 06/20/18at 09:17; Start 06/15/18 at 21:00 Iohexol (Omnipaque 300 Mg/ml) 75 ml 1X ONCE IV Last administered on 06/16/18at 06:20; Start 06/16/18 at 06:30; Stop 06/16/18 at 06:31; Status DC Info (CONTRAST GIVEN -- Rx MONITORING) 1 each PRN DAILY PRN MC SEE COMMENTS; Start 06/16/18 at 06:15; Stop 06/18/18 at 06:14; Status DC Pantoprazole Sodium (Protonix) 40 mg DAILYAC PO Last administered on 06/20/18at 05:44; Start 06/17/18 at 07:30 Amlodipine Besylate (Norvasc) 10 mg DAILY PO Last administered on 06/20/18at 09:19; Start 06/16/18 at 16:30 Pseudoephedrine HCl (Sudafed) 30 mg PRN Q6HRS PRN PO NASAL CONGESTION Last administered on 06/17/18at 21:29; Start 06/17/18 at 10:00 Acetaminophen (Tylenol) 650 mg PRN Q6HRS PRN PO MILD PAIN / TEMP Last administered on 06/17/18at 21:29; Start 06/17/18 at 10:00 Montelukast Sodium (Singulair) 10 mg QHS PO Last administered on 06/19/18at 21:52; Start 06/17/18 at 21:00 Cetirizine HCl (ZyrTEC) 10 mg DAILY PO Last administered on 06/20/18at 09:17; Start 06/17/18 at 11:00 Ondansetron HCl (Zofran) 4 mg PRN Q6HRS PRN IV NAUSEA/VOMITING; Start 06/17/18 at 10:00 Info (Tpn Per Pharmacy) 1 each PRN DAILY PRN MC SEE COMMENTS Last administered on 06/19/18at 12:45; Start 06/17/18 at 22:00 Sodium Chloride 90 meq/Potassium Chloride 50 meq/ Potassium Phosphate 13.6 mmol/Magnesium Sulfate 10 meq/ Calcium Gluconate 10 meq/ Multivitamins 10 ml/Chromium/ Copper/Manganese/ Seleni/Zn 1 ml/ Total Parenteral Nutrition/Amino Acids/Dextrose/ Fat Emulsion Intravenous 1,512 ml @ 63 mls/hr TPN CONT IV Last administered on 06/17/18at 22:16; Start 06/17/18 at 22:00; Stop 06/18/18 at 21:59; Status DC Lidocaine/Sodium Bicarbonate (Buffered Lidocaine 1%) 3 ml STK-MED ONCE .ROUTE ; Start 06/18/18 at 13:10; Stop 06/18/18 at 13:11; Status DC Midazolam HCl (Versed) 2 mg STK-MED ONCE .ROUTE ; Start 06/18/18 at 13:25; Stop 06/18/18 at 13:26; Status DC Fentanyl Citrate (Fentanyl 2ml Vial) 100 mcg STK-MED ONCE .ROUTE ; Start 06/18/18 at 13:25; Stop 06/18/18 at 13:26; Status DC Lidocaine/Sodium Bicarbonate (Buffered Lidocaine 1%) 3 ml 1X ONCE IJ Last administered on 06/18/18at 13:30; Start 06/18/18 at 13:30; Stop 06/18/18 at 13:47; Status DC Midazolam HCl (Versed) 2 mg 1X ONCE IV Last administered on 06/18/18at 13:30; Start 06/18/18 at 13:30; Stop 06/18/18 at 13:47; Status DC Fentanyl Citrate (Fentanyl 2ml Vial) 100 mcg 1X ONCE IV Last administered on at 13:30; Start 06/18/18 at 13:30; Stop 06/18/18 at 13:47; Status DC Potassium Chloride/Water 50 ml @ 25 mls/hr Q2H IV Last administered on 06/18/18at 17:45; Start 06/18/18 at 15:00; Stop 06/18/18 at 18:59; Status DC Sodium Chloride 90 meq/Potassium Chloride 70 meq/ Potassium Phosphate 13.6 mmol/Magnesium Sulfate 10 meq/ Calcium Gluconate 10 meq/ Multivitamins 10 ml/Chromium/ Copper/Manganese/ Seleni/Zn 1 ml/ Total Parenteral Nutrition/Amino Acids/Dextrose/ Fat Emulsion Intravenous 1,512 ml @ 63 mls/hr TPN CONT IV Last administered on 06/18/18at 22:21; Start 06/18/18 at 22:00; Stop 06/19/18 at 21:59; Status DC Sodium Chloride 90 meq/Potassium Chloride 70 meq/ Potassium Phosphate 13.6 mmol/Magnesium Sulfate 10 meq/ Calcium Gluconate 10 meq/ Multivitamins 10 ml/Chromium/ Copper/Manganese/ Seleni/Zn 1 ml/ Total Parenteral Nutrition/Amino Acids/Dextrose/ Fat Emulsion Intravenous 1,512 ml @ 63 mls/hr TPN CONT IV Last administered on 06/19/18at 21:53; Start 06/19/18 at 22:00; Stop 06/20/18 at 21:59 Vancomycin HCl (Vancomycin Trough Level) 1 each 1X ONCE MC Last administered on 06/20/18at 08:30; Start 06/20/18 at 08:30; Stop 06/20/18 at 08:31; Status DC Active Scripts Active Reported [bariatric vitamins] Citracal + D Er Tablet (Calcium Carb & Cit/Vitamin D3) 1 Each Tablet.er 1 Each PO DAILY Acidophilus (Lactobacillus Acidophilus) 100 Mg Capsule 100 Mg PO DAILY Flomax (Tamsulosin Hcl) 0.4 Mg Cap.er.24h 0.4 Mg PO DAILY Fenofibrate (Fenofibrate Nanocrystallized) 145 Mg Tablet 1 Tab PO DAILY [losartan] Coreg (Carvedilol) 25 Mg Tablet 37.5 Mg PO BIDWMEALS Protonix (Pantoprazole Sodium) 20 Mg Tablet.dr 1 Tab PO DAILY Vitals/I & O Vital Sign - Last 24 Hours 06/19/18 06/19/18 06/19/18 06/19/18 15:00 17:34 19:20 20:30 Temp 98.6 98.4 98.6 98.4 Pulse 72 72 71 Resp 16 18 B/P (MAP) 136/84 (101) 136/84 131/87 (102) Pulse Ox 97 95 O2 Delivery Room Air Room Air Room Air 06/19/18 06/20/18 06/20/18 06/20/18 23:34 03:22 07:00 07:45 Temp 98.3 97.5 98.3 98.3 97.5 98.3 Pulse 75 64 58 Resp 18 18 18 B/P (MAP) 128/82 (97) 157/92 (113) 146/97 (113) Pulse Ox 96 97 97 O2 Delivery Room Air BiPAP/CPAP Room Air Room Air 06/20/18 06/20/18 07:52 09:19 Pulse 64 58 B/P (MAP) 146/97 146/97 Intake and Output 06/19/18 06/19/18 06/20/18 15:00 23:00 07:00 Intake Total 360 ml Balance 360 ml RUKHSANA GALARZA MD June 20, 2018 12:21
--- NOTE | 2018-06-20 13:43 | PDOC3 ---
Discharge Summary Date of Admission: Jun 11, 2018 Date of Discharge: June 20, 2018 Follow-Up: 1-2 days Admitting Diagnosis comment: discharge dx SEPSIS peritonitis perforated diverticulitis Incidental finding of a left one-inch renal mass awaiting eventual cryotherapy exophytic lesion of the left kidney concerning for renal cell carcinoma until proven otherwise. reviewed CT drain placement. Collection appeared slightly smaller. Collection was aspirated under CT with essentially all contents removed. These were sent for gram stain and culture. Drain was not placed, as collapsed cavity made this unfeasible. History of Present Illness History of Present Illness Patient was seen and examined Discussed the case at length with him Reviewed the films Would repeat ct imaging to confirm resolution as patient approaches end of a ntibiotic therapy or if there is clinical change. 35 min pt exam, d/c planning chart review, > 50% of time spent with exam, chart review, pt care coordination cont iv invanz 1 gm daily x 2 weeks Vitals Vitals Vital Signs Date Time Temp Pulse Resp B/P (MAP) Pulse Ox O2 Delivery O2 Flow Rate FiO2 06/20/18 09:19 58 146/97 06/20/18 07:45 Room Air 06/20/18 07:00 98.3 18 97 98.3 Physical Exam Physical Exam GENERAL: Sitting upright in bed, alert, NAD HEENT: Oral cavity, pharynx clear. NECK: Supple, no JVD. LUNGS: Decreased in the bases. HEART: S1, S2. ABDOMEN: Obese, soft, nontender EXTREMITIES: Without clubbing or cyanosis. No gross edema. SKIN: Warm to touch without signs of rash. NEUROLOGIC: Alert and oriented x 3 RUE-PICC (06/16) clean General: Alert, Oriented X3, Cooperative Heart: Regular rate, Normal S1 Lungs: Clear (No wheezes, rales, or rhonchi) Abdomen: Soft, No tenderness Extremities: No clubbing, No cyanosis Skin: No rashes, No breakdown, No significant lesion FINAL DIAGNOSIS Problems Medical Problems: (1) Diverticulitis of colon with perforation Status: Acute Brief Hospital Course Mr. Chang is a 53 old [sex] who presented with [ perforated diverticulum/ sepsis ] CONDITION AT DISCHARGE: Improved Discharge Medications Current Medications Fentanyl Citrate (Fentanyl 2ml Vial) 50 mcg 1X ONCE IV Last administered on 06/11/18at 22:46; Start 06/11/18 at 22:45; Stop 06/11/18 at 22:46; Status DC Ondansetron HCl (Zofran) 4 mg 1X ONCE IV Last administered on 06/11/18at 22:46; Start 06/11/18 at 22:45; Stop 06/11/18 at 22:46; Status DC Sodium Chloride 1,000 ml @ 1,000 mls/hr 1X ONCE IV Last administered on 06/11/18at 22:47; Start 06/11/18 at 22:45; Stop 06/11/18 at 23:44; Status DC Iohexol (Omnipaque 300 Mg/ml) 75 ml 1X ONCE IV Last administered on 06/11/18at 23:15; Start 06/11/18 at 23:15; Stop 06/11/18 at 23:16; Status DC Info (CONTRAST GIVEN -- Rx MONITORING) 1 each PRN DAILY PRN MC SEE COMMENTS; Start 06/11/18 at 23:15; Stop 06/13/18 at 23:14; Status DC Piperacillin Sod/ Tazobactam Sod (Zosyn Per Pharmacy) 1 each PRN DAILY PRN MC SEE COMMENTS; Start 06/12/18 at 02:30 Hydromorphone HCl (Dilaudid) 1 mg PRN Q4HRS PRN IV MODERATE PAIN Last administered on 06/19/18at 04:23; Start 06/12/18 at 02:00 Ondansetron HCl (Zofran) 4 mg PRN Q8HRS PRN IV NAUSEA/VOMITING; Start 06/12/18 at 02:00; Stop 06/13/18 at 01:59; Status DC Sodium Chloride 1,000 ml @ 100 mls/hr Q10H IV Last administered on 06/13/18at 01:01; Start 06/12/18 at 01:53; Stop 06/13/18 at 01:52; Status DC Piperacillin Sod/ Tazobactam Sod 4.5 gm/Sodium Chloride 100 ml @ 200 mls/hr Q6HRS IV Last administered on 06/20/18at 12:23; Start 06/12/18 at 02:30 Tamsulosin HCl (Flomax) 0.4 mg DAILY PO Last administered on 06/20/18at 09:17; Start 06/12/18 at 10:00 Pantoprazole Sodium (PROTONIX VIAL for IV PUSH) 40 mg DAILYAC IVP Last administered on 06/16/18 10:00; Start 06/12/18 at 10:00; Stop 06/16/18 at 11:40; Status DC Metoprolol Tartrate (Lopressor Vial) 2.5 mg BID IVP Last administered on 06/14/18 21:34; Start 06/12/18 at 21:00; Stop 06/15/18 at 11:51; Status DC Fentanyl Citrate (Fentanyl 2ml Vial) 100 mcg PRN Q4HRS PRN IV SEVERE PAIN Last administered on 06/15/18 12:16; Start 06/12/18 at 09:45 Ketorolac Tromethamine (Toradol 15mg Vial) 15 mg 1X ONCE IV Last administered on 06/12/18 11:16; Start 06/12/18 at 09:45; Stop 06/12/18 at 09:46; Status DC Saliva Substitute (Biotene Moisturizing Mouth) 2 spray PRN Q15MIN PRN PO DRY MOUTH Last administered on 06/13/18 11:52; Start 06/12/18 at 09:45 Insulin Human Lispro (HumaLOG) 0-7 UNITS TIDWMEALS SQ Last administered on 06/20/18 12:11; Start 06/12/18 at 12:00 Dextrose (Dextrose 50%-Water Syringe) 12.5 gm PRN Q15MIN PRN IV SEE COMMENTS; Start 06/12/18 at 10:00 Micafungin Sodium 100 mg/Dextrose 100 ml @ 100 mls/hr Q24H IV Last administered on 06/20/18 12:04; Start 06/12/18 at 12:00 Vancomycin HCl (Vanco Per Pharmacy) 1 each PRN DAILY PRN MC SEE COMMENTS Last administered on 06/20/18 09:10; Start 06/12/18 at 10:45 Vancomycin HCl 2 gm/Sodium Chloride 500 ml @ 250 mls/hr 1X ONCE IV Last administered on 06/12/18 14:47; Start 06/12/18 at 11:30; Stop 06/12/18 at 13:29; Status DC Vancomycin HCl 1.75 gm/Sodium Chloride 500 ml @ 250 mls/hr Q12H IV Last administered on 5/1/19at 09:17; Start 06/13/18 at 03:00 Vancomycin HCl (Vancomycin Trough Level) 1 each 1X ONCE MC Last administered on 06/14/18at 02:30; Start 06/14/18 at 02:30; Stop 06/14/18 at 02:31; Status DC Sodium Chloride 1,000 ml @ 1,000 mls/hr 1X ONCE IV Last administered on 06/13/18at 10:35; Start 06/13/18 at 10:30; Stop 06/13/18 at 11:29; Status DC Amino Acids/ Glycerin/ Electrolytes 1,000 ml @ 80 mls/hr [id number] IV Last administered on 06/17/18at 15:12; Start 06/13/18 at 11:00; Stop 06/17/18 at 21:59; Status DC Sodium Monofluorophosphate (Fleet Adult) 133 ml 1X ONCE [place] ; Start 06/13/18 at 11:00; Stop 06/13/18 at 11:00; Status DC Insulin Glargine (Lantus) 8 units DAILY SQ Last administered on 06/20/18at 09:25; Start 06/13/18 at 12:30 Sodium Chloride 1,000 ml @ 1,000 mls/hr 1X ONCE IV Last administered on 06/14/18at 10:10; Start 06/14/18 at 09:15; Stop 06/14/18 at 10:14; Status DC Carvedilol (Coreg) 37.5 mg BIDWMEALS PO Last administered on 06/20/18at 07:52; Start 06/15/18 at 17:00 Lactobacillus Rhamnosus (Culturelle) 1 cap BID PO Last administered on 06/20/18at 09:17; Start 06/15/18 at 21:00 Iohexol (Omnipaque 300 Mg/ml) 75 ml 1X ONCE IV Last administered on 06/16/18at 06:20; Start 06/16/18 at 06:30; Stop 06/16/18 at 06:31; Status DC Info (CONTRAST GIVEN -- Rx MONITORING) 1 each PRN DAILY PRN MC SEE COMMENTS; Start 06/16/18 at 06:15; Stop 06/18/18 at 06:14; Status DC Pantoprazole Sodium (Protonix) 40 mg DAILYAC PO Last administered on 06/20/18at 05:44; Start 06/17/18 at 07:30 Amlodipine Besylate (Norvasc) 10 mg DAILY PO Last administered on 06/20/18 09:19; Start 06/16/18 at 16:30 Pseudoephedrine HCl (Sudafed) 30 mg PRN Q6HRS PRN PO NASAL CONGESTION Last administered on 06/17/18 21:29; Start 06/17/18 at 10:00 Acetaminophen (Tylenol) 650 mg PRN Q6HRS PRN PO MILD PAIN / TEMP Last administe red on 06/17/18 21:29; Start 06/17/18 at 10:00 Montelukast Sodium (Singulair) 10 mg QHS PO Last administered on 06/19/18 21:5 2; Start 06/17/18 at 21:00 Cetirizine HCl (ZyrTEC) 10 mg DAILY PO Last administered on 06/20/18 09:17; Start 06/17/18 at 11:00 Ondansetron HCl (Zofran) 4 mg PRN Q6HRS PRN IV NAUSEA/VOMITING; Start 06/17/18 at 10:00 Info (Tpn Per Pharmacy) 1 each PRN DAILY PRN MC SEE COMMENTS Last administered on 06/19/18 12:45; Start 06/17/18 at 22:00 Sodium Chloride 90 meq/Potassium Chloride 50 meq/ Potassium Phosphate 13.6 mmol/Magnesium Sulfate 10 meq/ Calcium Gluconate 10 meq/ Multivitamins 10 ml/Chromium/ Copper/Manganese/ Seleni/Zn 1 ml/ Total Parenteral Nutrition/Amino Acids/Dextrose/ Fat Emulsion Intravenous 1,512 ml @ 63 mls/hr TPN CONT IV Last administered on 06/17/18at 22:16; Start 06/17/18 at 22:00; Stop 06/18/18 at 21:59; Status DC Lidocaine/Sodium Bicarbonate (Buffered Lidocaine 1%) 3 ml STK-MED ONCE .ROUTE ; Start 06/18/18 at 13:10; Stop 06/18/18 at 13:11; Status DC Midazolam HCl (Versed) 2 mg STK-MED ONCE .ROUTE ; Start 06/18/18 at 13:25; Stop 06/18/18 at 13:26; Status DC Fentanyl Citrate (Fentanyl 2ml Vial) 100 mcg STK-MED ONCE .ROUTE ; Start 06/18/18 at 13:25; Stop 06/18/18 at 13:26; Status DC Lidocaine/Sodium Bicarbonate (Buffered Lidocaine 1%) 3 ml 1X ONCE IJ Last administered on 06/18/18at 13:30; Start 06/18/18 at 13:30; Stop 06/18/18 at 13:47; Status DC Midazolam HCl (Versed) 2 mg 1X ONCE IV Last administered on 06/18/18at 13:30; Start 06/18/18 at 13:30; Stop 06/18/18 at 13:47; Status DC Fentanyl Citrate (Fentanyl 2ml Vial) 100 mcg 1X ONCE IV Last administered on 06/18/18at 13:30; Start 06/18/18 at 13:30; Stop 06/18/18 at 13:47; Status DC Potassium Chloride/Water 50 ml @ 25 mls/hr Q2H IV Last administered on 9at 17:45; Start 06/18/18 at 15:00; Stop 06/18/18 at 18:59; Status DC Sodium Chloride 90 meq/Potassium Chloride 70 meq/ Potassium Phosphate 13.6 mmol/Magnesium Sulfate 10 meq/ Calcium Gluconate 10 meq/ Multivitamins 10 ml/Chromium/ Copper/Manganese/ Seleni/Zn 1 ml/ Total Parenteral Nutrition/Amino Acids/Dextrose/ Fat Emulsion Intravenous 1,512 ml @ 63 mls/hr TPN CONT IV Last administered on 06/18/18at 22:21; Start 06/18/18 at 22:00; Stop 06/19/18 at 21:59; Status DC Sodium Chloride 90 meq/Potassium Chloride 70 meq/ Potassium Phosphate 13.6 mmol/Magnesium Sulfate 10 meq/ Calcium Gluconate 10 meq/ Multivitamins 10 ml/Chromium/ Copper/Manganese/ Seleni/Zn 1 ml/ Total Parenteral Nutrition/Amino Acids/Dextrose/ Fat Emulsion Intravenous 1,512 ml @ 63 mls/hr TPN CONT IV Last administered on 06/19/18at 21:53; Start 06/19/18 at 22:00; Stop 06/20/18 at 21:59 Vancomycin HCl (Vancomycin Trough Level) 1 each 1X ONCE MC Last administered on 06/20/18at 08:30; Start 06/20/18 at 08:30; Stop 06/20/18 at 08:31; Status DC Active Scripts Active Reported [bariatric vitamins] Citracal + D Er Tablet (Calcium Carb & Cit/Vitamin D3) 1 Each Tablet.er 1 Each PO DAILY Acidophilus (Lactobacillus Acidophilus) 100 Mg Capsule 100 Mg PO DAILY Flomax (Tamsulosin Hcl) 0.4 Mg Cap.er.24h 0.4 Mg PO DAILY Fenofibrate (Fenofibrate Nanocrystallized) 145 Mg Tablet 1 Tab PO DAILY [losartan] Coreg (Carvedilol) 25 Mg Tablet 37.5 Mg PO BIDWMEALS Protonix (Pantoprazole Sodium) 20 Mg Tablet.dr 1 Tab PO DAILY Vital Signs Vital Signs Date Time Temp Pulse Resp B/P (MAP) Pulse Ox O2 Delivery O2 Flow Rate FiO2 06/20/18 11:00 97.7 61 18 151/89 (109) 97 Room Air 97.7 Labs Laboratory Tests Test 06/18/18 17:03 06/18/18 20:56 06/19/18 08:23 06/19/18 10:20 Glucose (Fingerstick) 219 mg/dL (70-99) 187 mg/dL (70-99) 201 mg/dL (70-99) White Blood Count 5.6 x10^3/uL (4.0-11.0) Red Blood Count 4.03 x10^6/uL (4.30-5.70) Hemoglobin 11.3 g/dL (13.0-17.5) Hematocrit 34.2 % (39.0-53.0) Mean Corpuscular Volume 85 fL (79-100) Mean Corpuscular Hemoglobin 28 pg (25-35) Mean Corpuscular Hemoglobin Concent 33 g/dL (31-37) Red Cell Distribution Width 16.1 % (11.5-14.5) Platelet Count 264 x10^3/uL (140-400) Neutrophils (%) (Auto) 62 % (31-73) Lymphocytes (%) (Auto) 21 % (24-48) Monocytes (%) (Auto) 9 % (0-9) Eosinophils (%) (Auto) 6 % (0-3) Basophils (%) (Auto) 1 % (0-3) Neutrophils # (Auto) 3.5 x10^3uL (1.8-7.7) Lymphocytes # (Auto) 1.2 x10^3/uL (1.0-4.8) Monocytes # (Auto) 0.5 x10^3/uL (0.0-1.1) Eosinophils # (Auto) 0.3 x10^3/uL (0.0-0.7) Basophils # (Auto) 0.1 x10^3/uL (0.0-0.2) Sodium Level 138 mmol/L (136-145) Potassium Level 3.7 mmol/L (3.5-5.1) Chloride Level 103 mmol/L (98-107) Carbon Dioxide Level 28 mmol/L (21-32) Anion Gap 7 (6-14) Blood Urea Nitrogen 5 mg/dL (8-26) Creatinine 1.0 mg/dL (0.7-1.3) Estimated GFR (Cockcroft-Gault) 78.5 Glucose Level 223 mg/dL (70-99) Calcium Level 9.1 mg/dL (8.5-10.1) Phosphorus Level 3.1 mg/dL (2.6-4.7) Magnesium Level 1.9 mg/dL (1.8-2.4) Test 06/19/18 11:30 06/19/18 17:06 06/19/18 21:45 06/20/18 05:45 Glucose (Fingerstick) 218 mg/dL (70-99) 158 mg/dL (70-99) 140 mg/dL (70-99) White Blood Count 5.7 x10^3/uL (4.0-11.0) Red Blood Count 3.95 x10^6/uL (4.30-5.70) Hemoglobin 11.4 g/dL (13.0-17.5) Hematocrit 33.6 % (39.0-53.0) Mean Corpuscular Volume 85 fL (79-100) Mean Corpuscular Hemoglobin 29 pg (25-35) Mean Corpuscular Hemoglobin Concent 34 g/dL (31-37) Red Cell Distribution Width 15.6 % (11.5-14.5) Platelet Count 233 x10^3/uL (140-400) Neutrophils (%) (Auto) 59 % (31-73) Lymphocytes (%) (Auto) 24 % (24-48) Monocytes (%) (Auto) 10 % (0-9) Eosinophils (%) (Auto) 6 % (0-3) Basophils (%) (Auto) 1 % (0-3) Neutrophils # (Auto) 3.3 x10^3uL (1.8-7.7) Lymphocytes # (Auto) 1.4 x10^3/uL (1.0-4.8) Monocytes # (Auto) 0.6 x10^3/uL (0.0-1.1) Eosinophils # (Auto) 0.3 x10^3/uL (0.0-0.7) Basophils # (Auto) 0.1 x10^3/uL (0.0-0.2) Sodium Level 142 mmol/L (136-145) Potassium Level 3.5 mmol/L (3.5-5.1) Chloride Level 107 mmol/L (98-107) Carbon Dioxide Level 25 mmol/L (21-32) Anion Gap 10 (6-14) Blood Urea Nitrogen 7 mg/dL (8-26) Creatinine 1.1 mg/dL (0.7-1.3) Estimated GFR (Cockcroft-Gault) 70.3 Glucose Level 218 mg/dL (70-99) Calcium Level 9.4 mg/dL (8.5-10.1) Phosphorus Level 3.4 mg/dL (2.6-4.7) Magnesium Level 2.0 mg/dL (1.8-2.4) Test 06/20/18 07:25 06/20/18 08:10 06/20/18 11:16 Glucose (Fingerstick) 214 mg/dL (70-99) 164 mg/dL (70-99) Vancomycin Level Trough 19.3 mcg/mL (10.0-20.0) Vancomycin Last Dose Date 06/19/18 Vancomycin Last Dose Time 2100 Laboratory Tests Test 06/19/18 17:06 06/19/18 21:45 06/20/18 05:45 06/20/18 07:25 Glucose (Fingerstick) 158 mg/dL (70-99) 140 mg/dL (70-99) 214 mg/dL (70-99) White Blood Count 5.7 x10^3/uL (4.0-11.0) Red Blood Count 3.95 x10^6/uL (4.30-5.70) Hemoglobin 11.4 g/dL (13.0-17.5) Hematocrit 33.6 % (39.0-53.0) Mean Corpuscular Volume 85 fL (79-100) Mean Corpuscular Hemoglobin 29 pg (25-35) Mean Corpuscular Hemoglobin Concent 34 g/dL (31-37) Red Cell Distribution Width 15.6 % (11.5-14.5) Platelet Count 233 x10^3/uL (140-400) Neutrophils (%) (Auto) 59 % (31-73) Lymphocytes (%) (Auto) 24 % (24-48) Monocytes (%) (Auto) 10 % (0-9) Eosinophils (%) (Auto) 6 % (0-3) Basophils (%) (Auto) 1 % (0-3) Neutrophils # (Auto) 3.3 x10^3uL (1.8-7.7) Lymphocytes # (Auto) 1.4 x10^3/uL (1.0-4.8) Monocytes # (Auto) 0.6 x10^3/uL (0.0-1.1) Eosinophils # (Auto) 0.3 x10^3/uL (0.0-0.7) Basophils # (Auto) 0.1 x10^3/uL (0.0-0.2) Sodium Level 142 mmol/L (136-145) Potassium Level 3.5 mmol/L (3.5-5.1) Chloride Level 107 mmol/L (98-107) Carbon Dioxide Level 25 mmol/L (21-32) Anion Gap 10 (6-14) Blood Urea Nitrogen 7 mg/dL (8-26) Creatinine 1.1 mg/dL (0.7-1.3) Estimated GFR (Cockcroft-Gault) 70.3 Glucose Level 218 mg/dL (70-99) Calcium Level 9.4 mg/dL (8.5-10.1) Phosphorus Level 3.4 mg/dL (2.6-4.7) Magnesium Level 2.0 mg/dL (1.8-2.4) Test 06/20/18 08:10 06/20/18 11:16 Vancomycin Level Trough 19.3 mcg/mL (10.0-20.0) Vancomycin Last Dose Date 06/19/18 Vancomycin Last Dose Time 2100 Glucose (Fingerstick) 164 mg/dL (70-99) Allergies Allergies Coded Allergies Type Severity Reaction Last Updated Verified hydrocodone Allergy Severe THROAT CLOSES 06/11/18 Yes Sulfa (Sulfonamide Antibiotics) Allergy Intermediate HIVES 06/11/18 Yes Disposition/Orders: D/C to Home Patient Instructions D/C PLANNING 35 MIN RUKHSANA GALARZA MD June 20, 2018 13:43
[2018-06-20] MEDS ORDERED: CETI10TA16 PO (13:47)
[2018-06-20] MEDS ORDERED: INSU100I13 SQ (13:47)
[2018-06-20] MEDS ORDERED: AMLO10TA8 PO (13:47)
--- NOTE | 2018-06-20 13:48 | DISCH ---
DISCHARGE INSTRUCTIONS Condition on Discharge Condition on Discharge: Stable Activity After Discharge Activity Instructions for Disc: Activity as tolerated Exercise Instruction after Dis: Walk 10 min, 3 x per day Driving Instructions after Dis: Do not drive Diet after Discharge Diet after Discharge: Cardiac Checks after Discharge Checks after discharge: Check blood press - daily Contacting the DR. after DC Call your doctor for: If your condition worsens RUKHSANA GALARZA MD June 20, 2018 13:48
== END 2018-06-20 15:55 | disposition home or self-care (01) | DRG 853 ==
LOC: ER 21:03 → 6 SOUTH 23:12 → 4 NORTH 06-15 13:17
PROVIDERS: ADMIT Internal Medicine; ATTEND Internal Medicine
PROC: 5A09357 Assistance with Respiratory Ventilation, Less than 24 Consecutive Hours, Continuous Positive Airway Pressure (ICD-10-PCS; 2018-06-15)
PROC: 02HV33Z Insertion of Infusion Device into Superior Vena Cava, Percutaneous Approach (ICD-10-PCS; 2018-06-16)
PROC: 0W9J3ZX Drainage of Pelvic Cavity, Percutaneous Approach, Diagnostic (ICD-10-PCS; principal; 2018-06-19)
DX: A41.9 Sepsis, unspecified organism (principal); K65.9 Peritonitis, unspecified; K65.1 Peritoneal abscess; K57.20 Diverticulitis of large intestine with perforation and abscess without bleeding; Z68.41 Body mass index [BMI] 40.0-44.9, adult; E66.01 Morbid (severe) obesity due to excess calories; E11.65 Type 2 diabetes mellitus with hyperglycemia; I10 Essential (primary) hypertension; Z98.84 Bariatric surgery status; B95.8 Unspecified staphylococcus as the cause of diseases classified elsewhere; N20.0 Calculus of kidney; I25.10 Atherosclerotic heart disease of native coronary artery without angina pectoris; E78.5 Hyperlipidemia, unspecified; G47.30 Sleep apnea, unspecified; N40.0 Benign prostatic hyperplasia without lower urinary tract symptoms; V89.2XXA Person injured in unspecified motor-vehicle accident, traffic, initial encounter; G51.0 Bell's palsy; Z88.2 Allergy status to sulfonamides; Z90.49 Acquired absence of other specified parts of digestive tract; I25.2 Old myocardial infarction; Z86.19 Personal history of other infectious and parasitic diseases; Z82.49 Family history of ischemic heart disease and other diseases of the circulatory system; Z83.3 Family history of diabetes mellitus; Z80.3 Family history of malignant neoplasm of breast; Z87.891 Personal history of nicotine dependence; Z86.73 Personal history of transient ischemic attack (TIA), and cerebral infarction without residual deficits; Z95.5 Presence of coronary angioplasty implant and graft; Z90.5 Acquired absence of kidney; Y99.0 Civilian activity done for income or pay
CPT/HCPCS: 10009; 36415; 36569; 70450; 71045; 74018; 74177; 80048; 80053; 80202; 80307; 81001; 82962; 83036; 83735; 84100; 84478; 84484; 85025; 85610; 87071; 87075; 87186; 93005; 93306; 96361; 96374; 96375; 99152; 99153; C9113; G0480; J0610; J1170; J1815; J1885; J2248; J2250; J2405; J2543; J3010; J3370; J3475; J3480; J3490; J7030; J7040; Q9967; 99285-25